=== PATIENT | female | born 1960 | race Caucasian/White ===

== ENCOUNTER 2017-03-04 06:17 | Day surgery (SDC) | payer OTHER ==
[~2017-03-04] VITALS: Ht 160 cm; Wt 87.2 kg
[2017-03-04] VITALS (25 sets, daily range): BP systolic 107–167; BP diastolic 61–92; PULSE 58–74; RESP 14–22; Ht 160 cm; Wt 87.2 kg
[2017-03-04] MEDS ORDERED: NITROGLYCERIN (IC) 100 MCG/ML INJ ONE (07:12)
[2017-03-04] MEDS ORDERED: IODIXANOL LOCM 100 ML BTL ONE (07:12)
[2017-03-04] MEDS ORDERED: VERAPAMIL 5 MG INJ ONE (07:12)
[2017-03-04] MEDS ORDERED: HEPARIN 1000 UNITS/ML 10 ML INJ ONE (07:12)
[2017-03-04] MEDS ORDERED: LIDOCAINE 1% (MDV) 20 ML INJ ONE (07:12)
[2017-03-04] MEDS ORDERED: METO25TA7 PO (08:31)
[2017-03-04 08:33] LABS: ADD SCAN DIFF NO
[2017-03-04 08:36] LABS: BASOPHIL # 0.1 10^3/ul (0.0-0.1); BASOPHILS % 0.8 % (0.0-2.0); EOSINOPHILS # 0.2 10^3/ul (0.0-0.5); HEMATOCRIT 38.8 % (37.0-47.0); HEMOGLOBIN 12.6 g/dl (12.0-16.0); LYMPHOCYTES # 2.3 10^3/ul (0.8-2.9); LYMPHOCYTES % 35.4 % (15.0-51.0); MEAN CORPUSCULAR HEMOGLOBIN 26.5 pg (29.0-33.0); MEAN CORPUSCULAR HGB CONC 32.5 g/dl (32.0-37.0); MEAN CORPUSCULAR VOLUME 81.7 fl (82.0-101.0); MEAN PLATELET VOLUME 9.5 fl (7.4-10.4); MONOCYTE # 0.4 10^3/ul (0.3-0.9); MONOCYTES % 6.7 % (0.0-11.0); NEUTROPHIL # 3.5 10^3/ul (1.6-7.5); NEUTROPHILS % 53.9 % (39.0-77.0); PLATELET COUNT 362 10^3/UL (140-415); RED BLOOD COUNT 4.75 10^6/ul (4.20-5.40); RED CELL DISTRIBUTION WIDTH 14.5 % (11.5-14.5); WHITE BLOOD COUNT 6.6 10^3/ul (4.8-10.8)
--- NOTE | 2017-03-04 08:47 | RADRPT ---
PROCEDURE: XR Chest. CLINICAL INDICATION: Preop, heart catheterization TECHNIQUE: AP view of the chest was obtained. COMPARISON: None. FINDINGS: The cardiomediastinal silhouette is within normal limits. The lungs are clear. No pleural effusion is identified. Osseous structures appear intact. IMPRESSION: No evidence of active cardiopulmonary disease. RPTAT: GG .Jag Blanco MD, MD Date Time Electronically viewed and signed by .Jag Blanco MD, MD on 03/04/2017 08:46 .O/
[2017-03-04 08:49] LABS: PARTIAL THROMBOPLASTIN TIME 27.4 Sec (25.0-35.0); PROTIME 13.2 Sec (12.2-14.2)
[2017-03-04 08:53] LABS: CHOL/HDL RATIO 4.1 RATIO
[2017-03-04] MEDS ORDERED: MIDAZOLAM 1 MG/ML 2 ML INJ ONE (08:58)
[2017-03-04 08:59] LABS: CALCIUM 8.8 mg/dl (8.4-10.2); CREATININE 0.51 mg/dl (0.44-1.00); POTASSIUM 3.6 mmol/L (3.5-5.1)
[2017-03-04] MEDS ORDERED: FENTAnyl 50 MCG/ML VIAL ONE (08:59)
[2017-03-04] MEDS ORDERED: SOD CHLORIDE 0.9% 1,000 ML IV SCH (09:54)
[2017-03-04] MEDS ORDERED: morphine 2 MG INJ IV PRN (10:00)
[2017-03-04] MEDS ORDERED: ONDANSETRON 4 MG INJ IV PRN (10:00)
[2017-03-04] MEDS ORDERED: ACETAMINOPHEN 325 MG TAB PO PRN (10:00)
[2017-03-04] MEDS ORDERED: AL HYDROX/MG HYDROX/SIMETH 30 ML CUP PO PRN (10:00)
--- NOTE | 2017-03-04 10:23 | CARRPT ---
DATE OF PROCEDURE: 03/04/2017 TYPE OF PROCEDURE: 1. Left heart catheterization. 2. Coronary angiography. 3. Measurement of left ventricular end diastolic pressure. ATTENDING PHYSICIAN: Hilaria Aggarwal MD REFERRING PHYSICIAN: Dr. Alona Herrera. INDICATION: Preoperative patient with positive stress test findings for anterior and inferior ische bailey, high risk marker for cardiovascular events. TYPE OF ANESTHESIA: Conscious and local. BRIEF HISTORY AND HOSPITAL COURSE: Ms. Sofia is a 56-year-old female with history of hypertensio n, diabetes mellitus who initially presented complaining of shortness of breath in a preoperative st ate. The patient subsequently underwent a cardiac stress test revealing positive anterior inferior ischemia. Given these findings, the patient referred for and presents today in order to undergo lef t heart catheterization to assess for the possibility of significant obstructive coronary artery dis ease lending to his symptoms of shortness of breath and positive stress test findings in a preoperat grover state. PROCEDURE: After informed consent was obtained, the patient was brought to the [facility] cardiac catheterization lab where her right radial area was prepped and draped in sterile f ashion. 2% Lidocaine was infiltrated into his right radial area in order to adequate local anesthes ia. With modified Seldinger technique, the right artery was cannulated and a 6-Burundian arterial kwan th was placed. A 6-Burundian JL3.5 catheter was used to cannulate the left main coronary ostium with c ontrast injection. Multiple views of the left coronary arterial system were obtained. JL3.5 was re moved over a guidewire and a JR4 was used to cannulate the right coronary arterial ostium. With con trast injection, multiple views of the right coronary arterial system obtained. JR4 was then used t o cross the LV placed in the left ventricle and left ventricular end-diastolic pressure was measure d, pulled back across the aortic valve to assess for significant gradient, which there was not and r emoved. Subsequently, at this time, the patient's catheter was removed and the sheath was removed. TR band was applied. This completed the procedure. There were no noted complications. Additional ly, at the onset of the procedure, the patient received a radial cocktail with 200 mcg of nitroglyce rin, 2.5 mg of verapamil and 5,000 units of heparin. FINDINGS: Coronary angiography: Left main is 4 mm, no significant stenoses. LAD proximally is a 3 .5 mm vessel and has a 20% stenosis in its proximal portion. The remainder of the LAD is free of si gnificant focal stenoses and just around the apex there are proximal and mid to distal branching ej gonals, all sub 2 mm vessels with no significant focal stenosis. The circumflex proximally is a 3 m m vessel and has an ostial 20% stenosis. The remainder of the circumflex thereafter is free of sign ificant focal stenoses. There is a mid branching obtuse marginal 3 mm with no significant focal emily noses. There exists a very early branching diagonal or ramus branch 2 mm with an ostial 30% stenosi s. The right coronary artery proximally is a 3.5 mm vessel and in its midportion has a 20% stenosis . It is a dominant vessel. It gives off a 3 mm PDA with no significant focal stenoses and a 2.5 mm posterolateral branch with a 20% stenosis. Measurement of left ventricular and diastolic pressure 18 to 19. No significant aortic stenosis by gradient. TOTAL FLUOROSCOPY TIME: 5.2 minutes. TOTAL CONTRAST: 71 mL. IMPRESSION: 1. Mild nonobstructive coronary artery disease. 2. Mildly elevated left heart filling pressures. 3. No significant aortic stenosis by gradient. RECOMMENDATIONS: In light of procedure and findings at this time would: 1. Maximize medical management. 2. Aggressive risk factor reduction. 3. The patient is without cardiac contraindication at this time to proceeding to OR for treatment f or surgical intervention. Dictated By: HILARIA DUNHAM/JOSE Conf#: [id number] DID#: [id number] CC: ALONA HERRERA MD;*End*
--- NOTE | 2017-03-06 15:29 | RADRPT ---
Vent Rate: 62 bpm RR Interval: 0 msec IA Interval: 200 msec QRS Duration: 110 msec QT Interval: 494 msec QTC Interval: 501 msec P-R-T Ear[place]art: 59 - -59 - 17 degrees Normal sinus rhythm Incomplete right bundle branch block Left anterior fascicular block Nonspecific T wave abnormality Prolonged QT Abnormal ECG Electronically Signed By: Curly Herrera [id number]
== END 2017-03-04 13:40 | disposition home or self-care (01) ==
LOC: SDS 06:17
PROVIDERS: ATTEND Internal Medicine
DX: I25.10 Atherosclerotic heart disease of native coronary artery without angina pectoris (principal); R94.39 Abnormal result of other cardiovascular function study; E11.9 Type 2 diabetes mellitus without complications; I10 Essential (primary) hypertension; E03.9 Hypothyroidism, unspecified
CPT/HCPCS: 71010; 80048; 80061; 82962; 85025; 85610; 85730; 93005; 93458; C1769; C1887; J1644; J2250; J3010; Q9967; Z7610

== ENCOUNTER 2019-06-15 10:22 | Inpatient (IN) | payer OTHER ==
[~2019-06-15] VITALS: Ht 162.6 cm; Wt 99.7 kg
[~2019-06-15 10:22] MED LIST: METO-335 PO
[2019-06-15] MEDS ORDERED: ASPIRIN 325 MG TAB PO STA (10:29)
[2019-06-15] MEDS ORDERED: SOD CHLORIDE 0.9% 1,000 ML IV STA (10:29)
--- NOTE | 2019-06-15 11:23 | ERD ---
ER Documentation Chief Complaint Chief Complaint BIB RA FOR LEFT SIDED WEAKNESS STARTED THURSDAY HPI This is a 58-year-old female who is here because of left-sided dense weakness and numbness in the left face arm and leg onset 4 days ago. She did not go to the hospital because she thought it was going to go away. The patient is c omplaining of inability to move her left arm and leg very much at all as well as left face and tingling on the left side. His speech change or swallowing changes. No trauma. ROS All systems reviewed and are negative except as per history of present illness. Medications Home Meds Reported Medications Dorzolamide Hcl* (Dorzolamide Hcl*) 10 Ml Drops, 1 DROP BOTH EYES TID, #1 EA 06/15/19 Lisinopril* (Lisinopril*) 10 Mg Tablet, 10 MG PO DAILY, #30 TAB 06/15/19 Metformin Hcl* (Metformin Hcl*) 1,000 Mg Tablet, 1000 MG PO WITH BREAKFAST DINNE, #60 TAB 06/15/19 Levothyroxine Sodium* (Levothyroxine Sodium*) 50 Mcg Tablet, 50 MCG PO BEFORE BREAKFAST, #30 TAB 06/15/19 Hydrocodone/Acetaminophen ([place] 5-325 Tablet) 1 Each Tablet, 1 EACH PO Q8H, TAB 06/15/19 Gabapentin* (Gabapentin*) 100 Mg Capsule, 100 MG PO BID, #90 CAP 06/15/19 Metoprolol Succinate* (Toprol XL*) 25 Mg Tab.sr.24h, 25 MG PO DAILY, #30 TAB 06/15/19 Discontinued Reported Medications Metoprolol Succinate* (Toprol XL*) 25 Mg Tab.sr.24h, 25 MG PO DAILY, #30 TAB 03/04/17 Allergies Allergies: Coded Allergies: No Known Allergies (Verified Allergy, Unknown, 06/15/19) PMhx/Soc History of Surgery: Yes (C-SEC X1) Anesthesia Reaction: No Hx Neurological Disorder: No Hx Respiratory Disorders: No Hx Cardiac Disorders: No Hx Psychiatric Problems: No Hx Miscellaneous Medical Probl: Yes (HTN, ) Hx Alcohol Use: No Hx Substance Use: No Hx Tobacco Use: No Smoking Status: Never smoker FmHx Family History: No coronary disease Physical Exam Vitals Vital Signs Date Temp Pulse Resp B/P (MAP) Pulse Ox O2 O2 Flow FiO2 Time Delivery Rate 06/15/19 71 17 167/86 100 Room Air 11:15 (113) 06/15/19 Nasal 2 10:51 Cannula 06/15/19 73 15 126/103 97 Room Air 10:45 (111) 06/15/19 96.9 95 17 148/80 100 10:29 (102) Physical Exam Const: Well-developed, well-nourished Head: Atraumatic, normocephalic Eyes: Normal Conjunctiva, PERRLA, EOMI, normal sclera, no nystagmus ENT: Normal External Ears, Nose and Mouth, moist mucus membranes. Neck: Full range of motion. No meningismus, no lymphadenopathy. Resp: Clear to auscultation bilaterally, no wheezing, rhonchi, rales Cardio: Regular rate and rhythm, no murmurs, S1 S2 present Abd: Soft, non tender x 4, non distended. Normal bowel sounds, no guar ding or rebound, no pulsitile abdominal masses or bruits Skin: No petechiae or rashes, no ecchymosis , no maculopapular rash Back: No midline or flank tenderness Ext: No cyanosis, or edema, FROM x 4, normal inspection, neurovascularly intact x 4 Neur: [Awake and alert, left upper and lower extremity strength is 12/5, left upper and lower extremity sensation is decreased, there is left facial paralysis and decreased sensation to the cheek on the left Psych: Normal Mood and Affect Result Diagram: 06/15/19 1040 06/15/19 1040 Results 24 hrs Laboratory Tests Test 06/15/19 10:40 White Blood Count 12.3 10^3/ul Red Blood Count 4.76 10^6/ul Hemoglobin 12.4 g/dl Hematocrit 38.8 % Mean Corpuscular Volume 81.5 fl Mean Corpuscular Hemoglobin 26.1 pg Mean Corpuscular Hemoglobin Concent 32.0 g/dl Red Cell Distribution Width 14.5 % Platelet Count 440 10^3/UL Mean Platelet Volume 8.9 fl Immature Granulocytes % 0.400 % Neutrophils % 72.2 % Lymphocytes % 19.8 % Monocytes % 5.9 % Eosinophils % 1.1 % Basophils % 0.6 % Nucleated Red Blood Cells % 0.0 /100WBC Immature Granulocytes # 0.050 10^3/ul Neutrophils # 8.9 10^3/ul Lymphocytes # 2.4 10^3/ul Monocytes # 0.7 10^3/ul Eosinophils # 0.1 10^3/ul Basophils # 0.1 10^3/ul Nucleated Red Blood Cells # 0.0 10^3/ul Prothrombin Time 12.4 Sec Prothrombin Time Ratio 1.0 INR International Normalized Ratio 0.91 Activated Partial Thromboplast Time 24.1 Sec Sodium Level 143 mmol/L Potassium Level 3.4 mmol/L Chloride Level 110 mmol/L Carbon Dioxide Level 21 mmol/L Anion Gap 12 Blood Urea Nitrogen 14 mg/dl Creatinine 0.50 mg/dl Est Glomerular Filtrat Rate mL/min > 60 mL/min Glucose Level 138 mg/dl Hemoglobin A1c 6.5 % Calcium Level 9.6 mg/dl Total Bilirubin 0.5 mg/dl Direct Bilirubin 0.00 mg/dl Indirect Bilirubin 0.5 mg/dl Aspartate Amino Transf (AST/SGOT) 28 IU/L Alanine Aminotransferase (ALT/SGPT) 18 IU/L Alkaline Phosphatase 95 IU/L Troponin I < 0.012 ng/ml Total Protein 8.2 g/dl Albumin 4.1 g/dl Globulin 4.10 g/dl Albumin/Globulin Ratio 1.00 Triglycerides Level 164 mg/dl Cholesterol Level 233 mg/dl LDL Cholesterol, Calculated 157 mg/dl HDL Cholesterol 43 mg/dl Cholesterol/HDL Ratio 5.4 RATIO Current Medications Medications Dose Sig/Kelechi Start Time Status Last (Trade) Ordered Route PRN Stop Time Admin Dose Reason Admin Sodium 1,000 ml @ Q1H STAT 06/15/19 DC 06/15/19 Chloride 1,000 mls/hr IV 10:29 11:01 06/15/19 11:28 Aspirin 325 mg ONCE STAT 06/15/19 DC 06/15/19 (Aspirin) PO 10:29 11:01 06/15/19 10:31 Procedures/MDM EKG: Rate/Rhythm: Normal sinus rhythm, left axis deviation QRS, ST, QT: NORMAL WA, QRS, QT] Impression: Abnormal EKG [address] [place], [place] [address] Radiology Main Line: [phone] DIAGNOSTIC IMAGING REPORT Patient: SELVIN NIEVES : 1960 Age: 58 Sex: F MR #: [id number] DOS: 06/15/19 1029 Ordering MD: FIDEL SHORT DO Location: E/R Room/Bed: PROCEDURE: XR Chest. CLINICAL INDICATION: CVA TECHNIQUE: Single portable view of the chest was obtained COMPARISON: CR CHEST 03/04/2017 FINDINGS: The heart is enlarged. The lungs are clear. There is no pleural effusion or pneumothorax. RPTAT: AA IMPRESSION: Mild Cardiomegaly. .Yadiel Combs MD, MD Date Time Electronically viewed and signed by .aYdiel Combs MD, MD on 06/15/2019 10:54 .S/ CC: FIDEL SHORT DO [id number] [place] [address] Radiology Main Line: [phone] DIAGNOSTIC IMAGING REPORT Patient: SELVIN NIEVES : 1960 Age: 58 Sex: F MR #: [id number] DOS: 06/15/19 1029 Ordering MD: FIDEL SHORT DO Location: E/R Room/Bed: PROCEDURE: CT Brain without contrast. CLINICAL INDICATION: Dense left-sided weakness for 8 hours ago TECHNIQUE: A CT of the brain was performed on a Siemens CT scanner utilizing axial imaging from the skull base through the vertex without IV contrast. Multiplanar reformatted images were made. Images were reviewed on a PACS workstation. The CTDIvol is 39.42 mGy and the DLP is 634.23 mGycm. DICOM images are available. One of the following 3 dose reduction techniques were used during this CT examination: 1) Automated exposure control 2) Adjustment of the mA +/- kV according to patient size or 3) Use of iterative reconstruction technique COMPARISON: None FINDINGS: No evidence for acute hemorrhage or extra-axial fluid collections are present. Wedge-shaped decreased attenuation is noted in the right parietal lobe and occipital lobe compatible with evolving acute to subacute infarct. No midline shift or herniation is present. The ventricles and sulci are normal in size and configuration. Mild vascular calcifications are present of the intracranial internal carotid arteries. Visualized scalp and calvarium are normal. The bilateral paranasal sinuses, mastoid air cells and middle ear cavities are clear. The bilateral orbits demonstrate sequela of prior lens replacement. Incomplete imaging of the C1 vertebral body with appearance of incomplete closure of the right side of the posterior ring versus fracture. Recommend CT cervical spine to clear. IMPRESSION: 1. Evolving acute to subacute non hemorrhagic right parietal occipital lobe infarct 2. No evidence for acute hemorrhage or extraaxial fluid collections, hydrocephalus or herniation 3. Mild atherosclerotic vascular disease 4. Right posterior ring incomplete fusion versus fracture of C1 . Recommend clearance with CT cervical spine Critical finding A call report was made to Fidel Short at 06/15/2019 11:50:55 AM following the completion of the examination by the undersigned. RPTAT: HDC .Mandie Field MD, MD Date Time Electronically viewed and signed by .Mandie Field MD, MD on 06/15/2019 11:54 .C/ CC: FIDEL SHORT DO [id number] Patient denies any trauma, I will order a CT scan of the C-spine to ensure this is either an acute fracture or an artifact versus a past healed injury Patient's neurologic symptoms are concerning for acute TIA/stroke, infectious, or metabolic cause and will require inpatient workup and continuous monitoring. Further w/u for will be deferred to the inpatient team. Departure Diagnosis: Primary Impression: CVA (cerebral vascular accident) CVA mechanism: unspecified Qualified Codes: I63.9 - Cerebral infarction, unspecified Condition: Stable FIDEL SHORT DO Jun 15, 2019 11:23
[2019-06-15] MEDS ORDERED: GABA100C14 PO (11:42)
[2019-06-15] MEDS ORDERED: METO-335 PO (11:42)
[2019-06-15] MEDS ORDERED: HYDR-4011 PO (11:43)
[2019-06-15] MEDS ORDERED: LEVO50TA7 PO (11:43)
[2019-06-15] MEDS ORDERED: METF100010 PO (11:44)
[2019-06-15] MEDS ORDERED: LISI10TA2 PO (11:44)
[2019-06-15] MEDS ORDERED: DORZ10DR5 BOTH EYES (11:46)
[2019-06-15] MEDS ORDERED: SOD CHLORIDE 0.9% 1,000 ML IV SCH (12:18)
[2019-06-15] MEDS ORDERED: ONDANSETRON 4 MG INJ IV PRN (12:30)
[2019-06-15] MEDS ORDERED: ACETAMINOPHEN 325 MG TAB PO PRN (12:30)
[2019-06-15 15:50] VITALS: BP 149/79; PULSE 73; RESP 17
--- NOTE | 2019-06-15 16:29 | HP ---
Date/Time of Note Date/Time of Note DATE: 06/15/19 TIME: 16:07 Assessment/Plan VTE Prophylaxis SCD applied (from Nsg): Yes Pharmacological prophylaxis: LMWH Lines/Catheters IV Catheter Type (from Nrsg): Saline Lock Assessment/Plan Assessment/Plan -CVA (cerebral vascular accident). Start aspirin. Will obtain swallow evaluation, PT OT. Obtain lipid panel. Dr. Bailey is asked to see patient in neurology consultation. -Chest pain, will obtain cardiac enzymes every 8 hours x3. [address]D echo. Dr. Aggarwal is asked to see patient in cardiology consultation. -Cardiomyopathy -Diabetes mellitus type 2, continue metformin and NovoLog per mild algorithm sliding scale, will obtain hemoglobin A1c. -Hypertension, continue metoprolol. -Hypothyroidism, will obtain TSH, continue levothyroxine. Further recommendations based on clinical course. Plan of care discussed with Dr. Stevenson. Result Diagram: 06/15/19 1040 06/15/19 1040 Results 24hrs Laboratory Tests Test 06/15/19 10:40 White Blood Count 12.3 #H Red Blood Count 4.76 Hemoglobin 12.4 Hematocrit 38.8 Mean Corpuscular Volume 81.5 L Mean Corpuscular Hemoglobin 26.1 L Mean Corpuscular Hemoglobin Concent 32.0 Red Cell Distribution Width 14.5 Platelet Count 440 #H Mean Platelet Volume 8.9 Immature Granulocytes % 0.400 Neutrophils % 72.2 Lymphocytes % 19.8 Monocytes % 5.9 Eosinophils % 1.1 Basophils % 0.6 Nucleated Red Blood Cells % 0.0 Immature Granulocytes # 0.050 H Neutrophils # 8.9 H Lymphocytes # 2.4 Monocytes # 0.7 Eosinophils # 0.1 Basophils # 0.1 Nucleated Red Blood Cells # 0.0 Prothrombin Time 12.4 Prothrombin Time Ratio 1.0 INR International Normalized Ratio 0.91 Activated Partial Thromboplast Time 24.1 Sodium Level 143 Potassium Level 3.4 L Chloride Level 110 Carbon Dioxide Level 21 Anion Gap 12 Blood Urea Nitrogen 14 Creatinine 0.50 Est Glomerular Filtrat Rate mL/min > 60 Glucose Level 138 Hemoglobin A1c 6.5 H Calcium Level 9.6 Total Bilirubin 0.5 Direct Bilirubin 0.00 Indirect Bilirubin 0.5 Aspartate Amino Transf (AST/SGOT) 28 Alanine Aminotransferase (ALT/SGPT) 18 Alkaline Phosphatase 95 Troponin I < 0.012 Total Protein 8.2 H Albumin 4.1 Globulin 4.10 H Albumin/Globulin Ratio 1.00 Triglycerides Level 164 H Cholesterol Level 233 H LDL Cholesterol, Calculated 157 HDL Cholesterol 43 Cholesterol/HDL Ratio 5.4 HPI/ROS Admit Date/Time Admit Date/Time Jun 15, 2019 at 12:19 Hx of Present Illness The patient is a 58-year-old female with history of hypertension, diabetes with diabetic neuropathy, hypothyroidism, nonobstructive coronary artery disease per left cardiac catheterization by Dr. Aggarwal in February 2017. Patient presented to the emergency room due to left-sided dense weakness and numbness in the face and upper and lower extremity onset 4 days ago on Thursday. Patient did not seek any care because she thought it will go away. Patient is unable to move her left upper and lower extremity. Patient denies any fever denies any shortness of breath denies nausea vomiting diarrhea constipation, denies any swallowing problems or speech problems. Patient denies any trauma. Patient complains of left-sided chest pain. CT of her brain revealed evolving acute to subacute nonhemorrhagic right parietal occipital lobe infarct. Unfortunately patient is outside of the window for any thrombolytics. Patient is admitted for further evaluation and management to telemetry floor. ROS 12 point review of system is negative except for what mentioned in HPI PMH/Family/Social Past Medical History Medical History: diabetes, hypertension, hypothyroid Medications Current Medications Sodium Chloride 1,000 ml @ 80 mls/hr [id number] IV ; Start 06/15/19 at 12:18; Stop 06/16/19 at 00:47 Ondansetron HCl (Zofran Inj) 4 mg ER BRIDGE PRN IV NAUSEA/VOMITING; Start 06/15/19 at 12:30; Stop 06/16/19 at 12:29 Acetaminophen (Tylenol Tab) 650 mg ER BRIDGE PRN PO .MILD PAIN 1-3 OR TEMP; Start 06/15/19 at 12:30; Stop 06/16/19 at 12:29 Coded Allergies: No Known Allergies (Verified Allergy, Unknown, 06/15/19) Past Surgical History Past Surgical Hx: other (Status post , status post cataract surgery) Family History Significant Family History: diabetes Social History Alcohol Use: none Smoking Status: Never smoker Drug Use: none Exam/Review of Systems Vital Signs Vitals Vital Signs Date Temp Pulse Resp B/P (MAP) Pulse Ox O2 O2 Flow FiO2 Time Delivery Rate 06/15/19 98.9 73 17 149/79 98 15:50 (102) 06/15/19 Room Air 13:40 06/15/19 2 10:51 Exam Constitutional: alert, oriented Head: normocephalic Neck: supple Respiratory: clear to auscultation Cardiovascular: regular rate and rhythm Gastrointestinal: soft, non-tender Musculoskeletal: nl extremities to inspection Extremities: normal pulses Neurological: other (Left-sided weakness) LIBIA JACOBSON Jun 15, 2019 16:18
[2019-06-15] MEDS ORDERED: GLUCAGON 1 MG INJ IM PRN (16:30)
[2019-06-15] MEDS ORDERED: DEXTROSE 50% 50 ML SYRINGE IV PRN ×2 (16:30)
[2019-06-15] MEDS ORDERED: GLUCOSE GEL 15 GRAM TUBE BUCCAL PRN (16:30)
[2019-06-15] MEDS ORDERED: GLUCOSE GEL 15 GRAM TUBE PO PRN ×2 (16:30)
[2019-06-15] MEDS: metFORMIN 500 MG TAB PO SCH (17:12)
[2019-06-15 17:19] VITALS: Ht 162.6 cm; Wt 99.7 kg
[2019-06-15 20:00] VITALS: BP 158/82; PULSE 76; RESP 18
[2019-06-15] MEDS ORDERED: ATORVASTATIN 20 MG TAB PO SCH (21:00)
[2019-06-15] MEDS: INSULIN ASPART [NOVOLOG] 3 ML PEN SC SCH (22:00)
[2019-06-15] MEDS: DORZOLAMIDE 2% 10 ML OPH BOTH EYES SCH (22:03)
[2019-06-16] VITALS (7 sets, daily range): BP systolic 133–176; BP diastolic 71–98; PULSE 69–79; RESP 18–22
--- NOTE | 2019-06-16 00:01 | CONS ---
DATE OF ADMISSION: 06/15/2019 DATE OF CONSULTATION: 06/15/2019 REASON FOR CONSULTATION: Hypertension, chest pain. REQUESTING PHYSICIAN: Shady Stevenson MD. HISTORY OF PRESENT ILLNESS: Mr. Sofia is a 58-year-old female with history of hypertension, dyslipidemia, diabetes mellitus, coronary artery disease, nonobstructive by catheterization February 2017, who presents with now per patient 5 days of left-sided weakness and upper extremity and lower extremity, facial numbness and cramping of the left side. Upon arrival, temperature 96.9, blood pressure 140/80, pulse 95, respiratory rate 17, satting 100%. The patient's labs revealed white count of 12.3, hemoglobin 12.4, platelet count of 440. Sodium 143, potassium 3.4, creatinine 0.5, BUN 14. Troponin negative. LDL 157, HDL 43, triglycerides 164. INR 0.91. The patient underwent a chest x-ray revealing mild cardiomegaly but clear lungs, a head CT that revealed evolving acute subacute nonhemorrhagic right parietal occipital lobe infarct. No evidence of acute hemorrhage and a cervical spine CT that then revealed multilevel spinal canal stenosis most pronounced at C5-C6 with a circumferential disk osteophyte complex mildly indenting the spinal cord with moderate spinal canal stenosis. The patient's electrocardiogram with normal sinus rhythm at 71, with left axis deviation. The patient subsequently has been admitted to the floor and since admit to floor has been given an aspirin. PAST MEDICAL HISTORY: As above in HPI. MEDICATIONS CURRENTLY IN HOSPITAL: 1. Lisinopril 10 mg daily. 2. Toprol 25 mg daily. 3. Aspirin 81 daily. 4. Synthroid 50 mcg daily. 5. Trusopt eye drops. 6. Metformin. 7. Glucagon. ALLERGIES: NO KNOWN DRUG ALLERGIES. SOCIAL HISTORY: No current tobacco, ETOH or illicit drug use. FAMILY HISTORY: No sudden cardiac or early CAD. REVIEW OF SYSTEMS: As above in HPI. CONSTITUTIONAL: No fevers, chills. PULMONARY: No current shortness of breath. CARDIOVASCULAR: The patient with vague complaints of chest pain described as a cramping sensation. GASTROINTESTINAL: No vomiting. GENITOURINARY: No hematuria. MUSCULOSKELETAL: Left upper and lower extremity weakness. NEUROLOGIC: Left upper extremity weakness. PHYSICAL EXAMINATION: VITAL SIGNS: Temperature of 98.9, blood pressure most recently 149/79, pulse 73, respiratory rate 17, satting 98%. GENERAL: The patient is alert, awake, no acute distress. NECK: JVP approximately 8 cm water. CHEST: Fair air movement throughout. HEART: Regular rate and rhythm. Normal S1, S2, I/ systolic murmur. Nondisplaced PMI. ABDOMEN: Positive bowel sounds, soft. EXTREMITIES: No significant pitting edema, 1+ pulses bilateral posterior tibial. LABORATORY DATA: As above in HPI. No further labs for my review at this time. IMAGING STUDIES: As above in HPI. No further imaging for my review at this time. ELECTROCARDIOGRAM: As above in HPI. No further electrocardiograms for my review at this time. IMPRESSION: 1. Chest pain, assess for acute coronary syndrome, somewhat vague description described as a cramping sensation with a cath no significant obstructive disease in 2017. 2. Hypertension, mildly elevated. 3. Dyslipidemia. 4. CVA, acute with ongoing left upper extremity and lower extremity weakness. 5. Hypothyroidism. 6. Diabetes mellitus. RECOMMENDATIONS: 1. At this time, we would maintain the patient on telemetry monitoring. 2. Follow rhythm and rate control closely. 2. We would complete the patient's rule out for myocardial infarction to ensure the patient's chest pain was not due to acute coronary syndrome and give patient sublingual nitroglycerin for any recurrent episodes of chest pain. 4. Continue the patient's aspirin at this time. 5. Would consider holding the patient's antihypertensives as it may be necessary to have the patient have permissive hypertension and therefore will at least discontinue the patient's lisinopril at this time. 6. TSH to assess his current thyroid state. 7. Check a fasting lipid panel for general risk stratification and likely initiate statin therapy as necessary. 8. Pending neurologic consultation. Thank you for allowing me to take part in the care of this patient. I will continue to follow along very closely with you. Further recommendations to be made as the patiient progresses through her inpatient hospital clinical course. Dictated By: HILARIA DUNHAM/JOSE Conf#: [id number] DID#: [id number] CC: SHADY STEVENSON MD;*EndCC* MTDD
[2019-06-16] MEDS: ACCU-CHEK XX SCH (02:00)
[2019-06-16] MEDS: LEVOTHYROXINE 50 MCG TAB PO SCH (06:00)
[2019-06-16] MEDS: metFORMIN 500 MG TAB PO SCH ×2 (08:00→17:31)
[2019-06-16] MEDS: INSULIN ASPART [NOVOLOG] 3 ML PEN SC SCH ×4 (08:00→20:21)
[2019-06-16] MEDS ORDERED: LISINOPRIL 10 MG TAB PO SCH (09:00)
[2019-06-16] MEDS: METOPROLOL (XL) 25 MG TAB PO SCH (09:00)
[2019-06-16] MEDS: ASPIRIN (EC) 81 MG TAB PO SCH (09:00)
[2019-06-16] MEDS: DORZOLAMIDE 2% 10 ML OPH BOTH EYES SCH ×3 (09:55→20:16)
--- NOTE | 2019-06-16 09:55 | CONSI ---
Assessment/Plan Assessment/Plan Assessment/Plan (Recall) 58 F c/ multiple cerebrovascular risk factors, who presents for evaluation of left hemiparesis x [address] confirmed a recent/evolving R parietal infarction... LDL 158 A1C 6.5 P: MRI brain for further characterization MRA head and neck Await Echo Agree w/ asa/lipitor daily for now Add ESR, RPR PT/OT/ST BP control and other medical management per primary Will follow Consultation Date/Type/Reason Admit Date/Time Jun 15, 2019 at 12:19 Type of Consult Neurology Reason for Consultation stroke Requesting Provider: LIBIA JACOBSON Date/Time of Note DATE: 06/16/19 TIME: 09:50 Hx of Present Illness The patient is a 58-year-old female with history of hypertension, diabetes with diabetic neuropathy, hypothyroidism, nonobstructive coronary artery disease per left cardiac catheterization by Dr. Aggarwal in February 2017. Patient presented to the emergency room due to left-sided dense weakness and numbness in the face and upper and lower extremity onset 4 days ago on Thursday. Patient did not seek any care because she thought it will go away. Patient is unable to move her left upper and lower extremity. Patient denies any fever de nies any shortness of breath denies nausea vomiting diarrhea constipation, denies any swallowing problems or speech problems. Patient denies any trauma. Patient complains of left-sided chest pain. CT of her brain revealed evolving acute to subacute nonhemorrhagic right parietal occipital lobe infarct. Unfortunately patient is outside of the window for any thrombolytics. Patient is admitted for further evaluation and management to telemetry floor. per HPI Objective Exam Vitals Vital Signs Date Temp Pulse Resp B/P (MAP) Pulse Ox O2 O2 Flow FiO2 Time Delivery Rate 06/16/19 97.0 69 22 152/81 96 Room Air 07:44 (104) 06/15/19 2 10:51 Intake and Output 06/15/19 06/15/19 06/16/19 1515:00 23:00 07:00 IntakeIntake Total 0 ml OutputOutput Total 1 ml BalanceBalance -1 ml 0 ml Exam PE: Gen Appearance: No Apparent Distress HEENT: Normocephalic Cardiovascular: Regular rate Lungs: Clear bilaterally Abdomen: Soft Extremities: Dry NE: The patient was alert and oriented. Language was normal. Fund of knowledge was normal. Pupils were equal and reactive to light. There was no afferent pupillary defect. Visual cid were normal. Funduscopic examination was limited. Extra-ocular movements were full. Ptosis was absent. There was no nystagmus. Facial sensation was normal. Face was symmetric with normal strength. Hearing was intact. Palate movements were normal. Neck strength was normal. There was normal tongue bulk and speed of movement. Tone was normal. Muscle bulk was normal. I did not see fasciculations. Arm and leg were weak on the left....though she was able to wiggle the left toes and move her left arm with gravity.. Vibration sensation was reduced distally. Temperature and pinprick sensation was normal. Rapid alternating movements were normal. There was no dysmetria. There was no intention tremor. Gait was deferred due to bedrest. Arm and leg reflexes were symmetric. Odonnell's sign was absent. Plantar responses were flexor. Results Result Diagram: 06/15/19 1040 06/15/19 1040 Results 24hrs Laboratory Tests Test 06/15/19 10:40 06/15/19 18:05 06/15/19 22:00 06/16/19 00:27 White Blood Count 12.3 #H Red Blood Count 4.76 Hemoglobin 12.4 Hematocrit 38.8 Mean Corpuscular 81.5 L Volume Mean Corpuscular 26.1 L Hemoglobin Mean Corpuscular 32.0 Hemoglobin Concent Red Cell 14.5 Distribution Width Platelet Count 440 #H Mean Platelet Volume 8.9 Immature 0.400 Granulocytes % Neutrophils % 72.2 Lymphocytes % 19.8 Monocytes % 5.9 Eosinophils % 1.1 Basophils % 0.6 Nucleated Red Blood 0.0 Cells % Immature 0.050 H Granulocytes # Neutrophils # 8.9 H Lymphocytes # 2.4 Monocytes # 0.7 Eosinophils # 0.1 Basophils # 0.1 Nucleated Red Blood 0.0 Cells # Prothrombin Time 12.4 Prothrombin Time 1.0 Ratio INR International 0.91 Normalized Ratio Activated 24.1 Partial Thromboplast Time Sodium Level 143 Potassium Level 3.4 L Chloride Level 110 Carbon Dioxide Level 21 Anion Gap 12 Blood Urea Nitrogen 14 Creatinine 0.50 Est Glomerular > 60 Filtrat Rate mL/min Glucose Level 138 Hemoglobin A1c 6.5 H Calcium Level 9.6 Total Bilirubin 0.5 Direct Bilirubin 0.00 Indirect Bilirubin 0.5 Aspartate Amino 28 Transf (AST/SGOT) Alanine 18 Aminotransferase (AL T/SGPT) Alkaline Phosphatase 95 Troponin I < 0.012 < 0.012 < 0.012 Total Protein 8.2 H Albumin 4.1 Globulin 4.10 H Albumin/Globulin 1.00 Ratio Triglycerides Level 164 H Cholesterol Level 233 H LDL Cholesterol, 157 Calculated HDL Cholesterol 43 Cholesterol/HDL 5.4 Ratio Creatine Kinase 141 148 Creatine Kinase 0.7 0.6 Index Creatinine Kinase MB 1.03 0.95 (Mass) Bedside Glucose 114 Test 06/16/19 05:13 06/16/19 08:15 Triglycerides Level 166 H Cholesterol Level 228 H LDL Cholesterol, 158 Calculated HDL Cholesterol 37 Cholesterol/HDL 6.1 Ratio Bedside Glucose 105 Past Medical History Medical History: diabetes, hypertension, hypothyroid Home Meds Reported Medications Dorzolamide Hcl* (Dorzolamide Hcl*) 10 Ml Drops, 1 DROP BOTH EYES TID, #1 EA 06/15/19 Lisinopril* (Lisinopril*) 10 Mg Tablet, 10 MG PO DAILY, #30 TAB 06/15/19 Metformin Hcl* (Metformin Hcl*) 1,000 Mg Tablet, 1000 MG PO WITH BREAKFAST DINNE, #60 TAB 06/15/19 Levothyroxine Sodium* (Levothyroxine Sodium*) 50 Mcg Tablet, 50 MCG PO BEFORE BREAKFAST, #30 TAB 06/15/19 Hydrocodone/Acetaminophen (Christine 5-325 Tablet) 1 Each Tablet, 1 EACH PO Q8H, TAB 06/15/19 Gabapentin* (Gabapentin*) 100 Mg Capsule, 100 MG PO BID, #90 CAP 06/15/19 Metoprolol Succinate* (Toprol XL*) 25 Mg Tab.sr.24h, 25 MG PO DAILY, #30 TAB 06/15/19 Discontinued Reported Medications Metoprolol Succinate* (Toprol XL*) 25 Mg Tab.sr.24h, 25 MG PO DAILY, #30 TAB 03/04/17 Medications Current Medications Dorzolamide HCl (Trusopt) 1 drop TID BOTH EYES Last administered on 06/15/19at 22:03; Admin Dose 1 DROP; Start 06/15/19 at 21:00 Levothyroxine Sodium (Synthroid) 50 mcg DAILY@06 PO ; Start 06/16/19 at 06:00 Metformin HCl (Glucophage) 1,000 mg WITH BREAKFAST DINNE PO ; Start 06/15/19 at 18:00 Metoprolol Succinate (Toprol Xl) 25 mg DAILY PO ; Start 06/16/19 at 09:00 Miscellaneous Information 1 ea NOTE XX ; Start 06/15/19 at 16:30 Glucose (Glutose) 15 gm Q15M PRN PO DECREASED GLUCOSE; Start 06/15/19 at 16:30 Glucose (Glutose) 22.5 gm Q15M PRN PO DECREASED GLUCOSE; Start 06/15/19 at 16:3 0 Dextrose (D50w Syringe) 25 ml Q15M PRN IV DECREASED GLUCOSE; Start 06/15/19 at 16:30 Dextrose (D50w Syringe) 50 ml Q15M PRN IV DECREASED GLUCOSE; Start 06/15/19 at 16:30 Glucagon (Glucagen) 1 mg Q15M PRN IM DECREASED GLUCOSE; Start 06/15/19 at 16:30 Glucose (Glutose) 15 gm Q15M PRN BUCCAL DECREASED GLUCOSE; Start 06/15/19 at 16:30 Aspirin (Halfprin) 81 mg DAILY PO ; Start 06/16/19 at 09:00 Atorvastatin Calcium (Lipitor) 20 mg HS PO ; Start 06/15/19 at 21:00 Diagnostic Test (Pha) (Accu-Chek) 1 ea 02 XX ; Start 06/16/19 at 02:00 Insulin Aspart (Novolog Insulin Pen) NOVOLOG *MILD* ALGORITHM WITH MEALS BEDTIME SC ; Start 06/15/19 at 21:00 Allergies: Coded Allergies: No Known Allergies (Verified Allergy, Unknown, 06/15/19) Past Surgical History Past Surgical Hx: other (Status post , status post cataract surgery) Social History Alcohol Use: none Smoking Status: Never smoker Drug Use: none ALYCIA YUNG Jun 16, 2019 09:55
[2019-06-16] MEDS ORDERED: hydrALAzine 20 MG INJ IV PRN (12:30)
--- NOTE | 2019-06-16 12:31 | CONS ---
Assessment/Plan Assessment/Plan Hospital Course (Demo Recall) IMPRESSION: 1. Chest pain, assess for acute coronary syndrome, somewhat vague description described as a cramping sensation with a cath no significant obstructive disease in 2017.-neg trop x 3 2. Hypertension, mildly elevated. 3. Dyslipidemia. 4. CVA, acute with ongoing left upper extremity and lower extremity weakness.- seen by HEad CT as well 5. Hypothyroidism. 6. Diabetes mellitus. Recc: -Tele -currently NPO -will f/u echo -Continue asa/statin as tolerated as able -ongoing neuro eval Consultation Date/Type/Reason Admit Date/Time Jun 15, 2019 at 12:19 Initial Consult Date 06/15/19 Type of Consult Cardiology Reason for Consultation HTN Requesting Provider: LIBIA JACOBSON Date/Time of Note DATE: 06/16/19 TIME: 12:27 Exam/Review of Systems Vital Signs Vitals Vital Signs Date Temp Pulse Resp B/P (MAP) Pulse Ox O2 O2 Flow FiO2 Time Delivery Rate 06/16/19 98.6 77 22 176/98 96 Room Air 11:54 (124) 06/15/19 2 10:51 Intake and Output 06/15/19 06/15/19 06/16/19 1515:00 23:00 07:00 IntakeIntake Total 0 ml OutputOutput Total 1 ml BalanceBalance -1 ml 0 ml Exam Exam Review of Systems: CONSTITUTIONAL: No fevers, chills. PULMONARY: No sob CARDIOVASCULAR: No chest pain/palpitations GASTROINTESTINAL: No nausea/vomiting. GENITOURINARY: No hematuria/dysuria. MUSCULOSKELETAL: No myagias/arthalgias. PSYCHIATRIC: The patient denies depression. NEUROLOGIC: Focal L sided weakness Constitutional: alert Psych: no complaints Head: normocephalic ENMT: mucosa pink and moist Neck: supple, jvd (9 cm water) Cardiovascular: regular rate and rhythm Gastrointestinal: soft, non-tender Musculoskeletal: muscle weakness (L sided but improving) Extremities: edema (none) Neurological: focal weakness (L side UE/LE) Labs Result Diagram: 06/15/19 1040 06/15/19 1040 Results 24hrs Laboratory Tests Test 06/15/19 18:05 06/15/19 22:00 06/16/19 00:27 06/16/19 05:11 Creatine Kinase 141 148 Creatine Kinase 0.7 0.6 Index Creatinine Kinase MB 1.03 0.95 (Mass) Troponin I < 0.012 < 0.012 Bedside Glucose 114 Erythrocyte 40.0 H Sedimentation Rate Test 06/16/19 05:13 06/16/19 08:15 06/16/19 11:29 Triglycerides Level 166 H Cholesterol Level 228 H LDL Cholesterol, 158 Calculated HDL Cholesterol 37 Cholesterol/HDL 6.1 Ratio Bedside Glucose 105 97 Medications Medications Current Medications Dorzolamide HCl (Trusopt) 1 drop TID BOTH EYES Last administered on 06/16/19at 09:55; Admin Dose 1 DROP; Start 06/15/19 at 21:00 Levothyroxine Sodium (Synthroid) 50 mcg DAILY@06 PO ; Start 06/16/19 at 06:00 Metformin HCl (Glucophage) 1,000 mg WITH BREAKFAST DINNE PO ; Start 06/15/19 at 18:00 Metoprolol Succinate (Toprol Xl) 25 mg DAILY PO ; Start 06/16/19 at 09:00 Miscellaneous Information 1 ea NOTE XX ; Start 06/15/19 at 16:30 Glucose (Glutose) 15 gm Q15M PRN PO DECREASED GLUCOSE; Start 06/15/19 at 16:30 Glucose (Glutose) 22.5 gm Q15M PRN PO DECREASED GLUCOSE; Start 06/15/19 at 16:30 Dextrose (D50w Syringe) 25 ml Q15M PRN IV DECREASED GLUCOSE; Start 06/15/19 at 16:30 Dextrose (D50w Syringe) 50 ml Q15M PRN IV DECREASED GLUCOSE; Start 06/15/19 at 16:30 Glucagon (Glucagen) 1 mg Q15M PRN IM DECREASED GLUCOSE; Start 06/15/19 at 16:30 Glucose (Glutose) 15 gm Q15M PRN BUCCAL DECREASED GLUCOSE; Start 06/15/19 at 16:30 Aspirin (Halfprin) 81 mg DAILY PO ; Start 06/16/19 at 09:00 Diagnostic Test (Pha) (Accu-Chek) 1 ea 02 XX ; Start 06/16/19 at 02:00 Insulin Aspart (Novolog Insulin Pen) NOVOLOG *MILD* ALGORITHM WITH MEALS BEDTIME SC ; Start 06/15/19 at 21:00 Atorvastatin Calcium (Lipitor) 80 mg HS PO ; Start 06/16/19 at 21:00 HILARIA WINSTON 18, 2019 12:30
--- NOTE | 2019-06-16 18:43 | PN ---
Date/Time of Note Date/Time of Note DATE: 06/16/19 TIME: 18:36 Assessment/Plan VTE Prophylaxis Risk score (from Ns)>0 risk: 7 SCD applied (from Nsg): Yes Pharmacological prophylaxis: LMWH Lines/Catheters IV Catheter Type (from Nrs): Saline Lock Urinary Cath still in place: No Assessment/Plan Hospital Course Patient's past swallow evaluation started on pured diet, continues to have left-sided weakness, undergoing evaluation by neurologist status post MRI and MRA of head and neck. Patient might be a candidate for acute rehab down the line. Patient's condition and plan of care discussed with patient and family at the bedside, all questions answered. Assessment/Plan -CVA (cerebral vascular accident). Continue aspirin and Lipitor. Continue PT OT. Dr. Bailey is following in neurology consultation. -Chest pain, cardiac enzymes are negative x3. Follow-up on 2D echo. Dr. Aggarwal is following in cardiology consultation. -Cardiomyopathy -Diabetes mellitus type 2 with hemoglobin A1c of 6.5, continue metformin and NovoLog per mild algorithm sliding scale. -Hypertension, continue metoprolol. -Hypothyroidism, continue levothyroxine. -Hyperlipidemia, continue Lipitor. Further recommendations based on clinical course. Plan of care discussed with Dr. Stevenson. Result Diagram: 06/15/19 1040 06/15/19 1040 Results 24hrs Laboratory Tests Test 06/15/19 22:00 06/16/19 00:27 06/16/19 05:11 06/16/19 05:13 Bedside Glucose 114 Creatine Kinase 148 Creatine Kinase 0.6 Index Creatinine Kinase MB 0.95 (Mass) Troponin I < 0.012 Erythrocyte 40.0 H Sedimentation Rate Triglycerides Level 166 H Cholesterol Level 228 H LDL Cholesterol, 158 Calculated HDL Cholesterol 37 Cholesterol/HDL 6.1 Ratio Test 06/16/19 08:15 06/16/19 11:29 06/16/19 17:29 Bedside Glucose 105 97 105 Exam/Review of Systems Exam Vitals Vital Signs Date Temp Pulse Resp B/P (MAP) Pulse Ox O2 O2 Flow FiO2 Time Delivery Rate 06/16/19 98.0 78 22 133/71 96 Room Air 15:50 (91) 06/15/19 2 10:51 Intake and Output 06/15/19 06/15/19 06/16/19 1515:00 23:00 07:00 IntakeIntake Total 0 ml OutputOutput Total 1 ml BalanceBalance -1 ml 0 ml Results Results 24hrs Laboratory Tests Test 06/15/19 22:00 06/16/19 00:27 06/16/19 05:11 06/16/19 05:13 Bedside Glucose 114 Creatine Kinase 148 Creatine Kinase 0.6 Index Creatinine Kinase MB 0.95 (Mass) Troponin I < 0.012 Erythrocyte 40.0 H Sedimentation Rate Triglycerides Level 166 H Cholesterol Level 228 H LDL Cholesterol, 158 Calculated HDL Cholesterol 37 Cholesterol/HDL 6.1 Ratio Test 06/16/19 08:15 06/16/19 11:29 06/16/19 17:29 Bedside Glucose 105 97 105 Medications Medication Current Medications Dorzolamide HCl (Trusopt) 1 drop TID BOTH EYES Last administered on 06/16/19at 14:23; Admin Dose 1 DROP; Start 06/15/19 at 21:00 Levothyroxine Sodium (Synthroid) 50 mcg DAILY@06 PO ; Start 06/16/19 at 06:00 Metformin HCl (Glucophage) 1,000 mg WITH BREAKFAST DINNE PO Last administered on 06/16/19at 17:31; Admin Dose 1,000 MG; Start 06/15/19 at 18:00 Metoprolol Succinate (Toprol Xl) 25 mg DAILY PO ; Start 06/16/19 at 09:00 Miscellaneous Information 1 ea NOTE XX ; Start 06/15/19 at 16:30 Glucose (Glutose) 15 gm Q15M PRN PO DECREASED GLUCOSE; Start 06/15/19 at 16:30 Glucose (Glutose) 22.5 gm Q15M PRN PO DECREASED GLUCOSE; Start 06/15/19 at 16:30 Dextrose (D50w Syringe) 25 ml Q15M PRN IV DECREASED GLUCOSE; Start 06/15/19 at 16:30 Dextrose (D50w Syringe) 50 ml Q15M PRN IV DECREASED GLUCOSE; Start 06/15/19 at 16:30 Glucagon (Glucagen) 1 mg Q15M PRN IM DECREASED GLUCOSE; Start 06/15/19 at 16:30 Glucose (Glutose) 15 gm Q15M PRN BUCCAL DECREASED GLUCOSE; Start 06/15/19 at 16:30 Aspirin (Halfprin) 81 mg DAILY PO ; Start 06/16/19 at 09:00 Diagnostic Test (Pha) (Accu-Chek) 1 02 XX ; Start 06/16/19 at 02:00 Insulin Aspart (Novolog Insulin Pen) NOVOLOG *MILD* ALGORITHM WITH MEALS BEDTIME SC ; Start 06/15/19 at 21:00 Atorvastatin Calcium (Lipitor) 80 mg HS PO ; Start 06/16/19 at 21:00 Hydralazine HCl (Apresoline) 10 mg Q4H PRN IV SBP >170; Start 06/16/19 at 12:30 LIBIA JACOBSON Jun 16, 2019 18:43
--- NOTE | 2019-06-16 19:16 | RADRPT ---
Echocardiogram Report Patient Name: SELVIN NIEVESPatient ID: [id number] : 1960 (58y 11m)Study Date: 06/16/2019 10:44:18 AM Gender: FAccession #: [id number] Tech: Cb Esparza [facility] Location: [facility] Ref.Physician: LIBIA JACOBSON Height(Cm): BSA: Weight(Kg): Quality: AdequateOrder Physician: LIBIA JACOBSON Account #: Procedures: Echocardiographic Report: Transthoracic echocardiogram with complete 2D, M-Mode, and doppler examination. Indications: Chest Pain. Measurements: 2D/M Mode Doppler Measurement Value Normal Range Measurement Value Normal Range LVIDd 2D 4.5 [ 3.8 - 5.2 ] cm AV Peak Carlos 1.6 [ 100.0 - 170.0 ] cm/sec LVIDs 2D 2.7 [ 2.2 - 3.5 ] cm AV Peak PG 11.0 [ 2.0 - 9.0 ] mmHg LVPWd 2D 1.3 [ 0.6 - 0.9 ] cm LVOT Peak Carlos 1.2 [ 70.0 - 110.0 ] cm/sec IVSd 2D 1.7 [ 0.6 - 0.9 ] cm LVOT Peak PG 5.0 [ 2.0 - 6.0 ] mmHg AoR Diam 2D 2.7 [ 2.3 - 3.1 ] cm MV E Peak Carlos 1.0 [ 60.0 - 130.0 ] cm/sec EDV 2D 91.0 [ 46.0 - 106.0 ] ml MV A Peak Carlos 1.1 [ 100.0 - 120.0 ] cm/sec ESV 2D 26.3 [ 14.0 - 42.0 ] ml MV E/A 0.8 [ 0.8 - 1.5 ] ratio EF 2D 71.1 [ 54.0 - 74.0 ] percent MV Decel Time 229 [ 104 - 258 ] msec LA Dimen 2D 3.6 [ 2.7 - 3.8 ] cm Lat E` Carlos 0.1 [ 10.0 - 15.0 ] cm/sec Lateral E/E` 14.1 [ 1.0 - 2.0 ] ratio Med E` Carlos 0.1 cm/sec MV E/A 0.8 [ 0.8 - 1.5 ] ratio TR Peak Carlos 2.2 [ 100.0 - 280.0 ] cm/sec TR Peak PG 19.0 mmHg RVSP 22.0 [ 10.0 - 36.0 ] mmHg Findings: Left Ventricle: Normal left ventricular systolic function. Normal left ventricular cavity size. Severe asymmetric septal hypertrophy. Ejection fraction is visually estimated at 60 %. Tissue Doppler/Mitral Doppler indices are consistent with impaired relaxation (Stage I diastolic dysfunction). Right Ventricle: Normal right ventricular size. Normal right ventricular systolic function. Left Atrium: The left atrium is normal in size. Right Atrium: The right atrium is normal in size. Mitral Valve: Mild mitral leaflet calcification. Mild mitral annular calcification. Trace mitral regurgitation. Aortic Valve: No significant aortic stenosis or insufficiency. Aortic cusps appear mildly calcified. Trace aortic valve regurgitation. Tricuspid Valve: Normal appearance of the tricuspid valve. The estimated Peak RVSP is 22 mmHg. There is trace tricuspid regurgitation. Pericardium: Normal pericardium with no significant pericardial effusion. Aorta: Normal aortic root. IVC: Normal size and normal respiratory collapse consistent with normal right atrial pressure. Conclusions: Normal left ventricular systolic function. Normal left ventricular cavity size. Severe asymmetric septal hypertrophy. Ejection fraction is visually estimated at 60 %. Tissue Doppler/Mitral Doppler indices are consistent with impaired relaxation (Stage I diastolic dysfunction). Mild mitral leaflet calcification. Mild mitral annular calcification. Trace mitral regurgitation. No significant aortic stenosis or insufficiency. Aortic cusps appear mildly calcified. Trace aortic valve regurgitation. Normal appearance of the tricuspid valve. The estimated Peak RVSP is 22 mmHg. There is trace tricuspid regurgitation. Electronically Signed By: Nasir Aggarwal 2019-06-16 19:15:45 PDT
[2019-06-16] MEDS: ATORVASTATIN 80 MG TAB PO SCH (20:16)
[2019-06-17] VITALS (7 sets, daily range): BP systolic 119–155; BP diastolic 75–81; PULSE 64–78; RESP 18–20
[2019-06-17] MEDS: ACCU-CHEK XX SCH (01:36)
[2019-06-17] MEDS: ACETAMINOPHEN 325 MG TAB PO PRN ×3 (04:05→20:56)
[2019-06-17] MEDS: LEVOTHYROXINE 50 MCG TAB PO SCH (05:42)
[2019-06-17] MEDS: INSULIN ASPART [NOVOLOG] 3 ML PEN SC SCH ×4 (07:56→20:57)
[2019-06-17] MEDS: ASPIRIN (EC) 81 MG TAB PO SCH (09:16)
[2019-06-17] MEDS: DORZOLAMIDE 2% 10 ML OPH BOTH EYES SCH ×3 (09:17→20:57)
[2019-06-17] MEDS: metFORMIN 500 MG TAB PO SCH ×2 (09:17→16:50)
[2019-06-17] MEDS: METOPROLOL (XL) 25 MG TAB PO SCH (09:17)
--- NOTE | 2019-06-17 11:28 | CONS ---
Assessment/Plan Assessment/Plan Hospital Course (Demo Recall) IMPRESSION: 1. Chest pain, assess for acute coronary syndrome, somewhat vague description described as a cramping sensation with a cath no significant obstructive disease in 2017.-neg trop x 3 2. Hypertension, mildly elevated. 3. Dyslipidemia. 4. CVA, acute with ongoing left upper extremity and lower extremity weakness.- seen by HEad CT as well, strength improving in RUE/RLE 5. Hypothyroidism. 6. Diabetes mellitus. Recc: -Tele -Continue asa/statin as tolerated -Contineu toprol xl at current dose for now, Ask neuro if any need for permissive HTN at this time -ongoing neuro eval with improving RUE/RLE strength Consultation Date/Type/Reason Admit Date/Time Jun 15, 2019 at 12:19 Initial Consult Date 06/15/19 Type of Consult Cardiology Reason for Consultation Chest pain Requesting Provider: LIBIA JACOBSON Date/Time of Note DATE: 06/17/19 TIME: 11:23 Exam/Review of Systems Vital Signs Vitals Vital Signs Date Temp Pulse Resp B/P (MAP) Pulse Ox O2 O2 Flow FiO2 Time Delivery Rate 06/17/19 98.5 67 20 155/80 97 Room Air 07:09 (105) 06/15/19 2 10:51 Intake and Output 06/16/19 06/16/19 06/17/19 1515:00 23:00 07:00 IntakeIntake Total 350 ml 350 ml 100 ml OutputOutput Total 800 ml 500 ml 800 ml BalanceBalance -450 ml -150 ml -700 ml Exam Exam Review of Systems: CONSTITUTIONAL: No fevers, chills. PULMONARY: No sob CARDIOVASCULAR: No chest pain/palpitations GASTROINTESTINAL: No nausea/vomiting. GENITOURINARY: No hematuria/dysuria. MUSCULOSKELETAL: No myagias/arthalgias. PSYCHIATRIC: The patient denies depression. NEUROLOGIC: focal weakness L sided Constitutional: alert Psych: no complaints Head: normocephalic ENMT: mucosa pink and moist Neck: supple, jvd (9 cm water) Respiratory: clear to auscultation Cardiovascular: regular rate and rhythm Gastrointestinal: soft, non-tender Musculoskeletal: muscle tone (normal), muscle weakness (L sided) Neurological: focal weakness Labs Result Diagram: 06/17/19 0500 06/17/19 0505 Results 24hrs Laboratory Tests Test 06/16/19 11:29 06/16/19 17:29 06/16/19 20:20 06/17/19 05:00 Bedside Glucose 97 105 122 White Blood Count 10.4 Red Blood Count 4.63 Hemoglobin 12.1 Hematocrit 37.3 Mean Corpuscular 80.6 L Volume Mean Corpuscular 26.1 L Hemoglobin Mean Corpuscular 32.4 Hemoglobin Concent Red Cell 14.3 Distribution Width Platelet Count 439 H Mean Platelet Volume 9.0 Immature 0.300 Granulocytes % Neutrophils % 61.6 Lymphocytes % 28.2 Monocytes % 6.8 Eosinophils % 2.5 Basophils % 0.6 Nucleated Red Blood 0.0 Cells % Immature 0.030 Granulocytes # Neutrophils # 6.4 Lymphocytes # 2.9 Monocytes # 0.7 Eosinophils # 0.3 Basophils # 0.1 Nucleated Red Blood 0.0 Cells # Test 06/17/19 05:05 06/17/19 07:42 Sodium Level 140 Potassium Level 3.4 L Chloride Level 105 Carbon Dioxide Level 25 Anion Gap 10 Blood Urea Nitrogen 13 Creatinine 0.62 Est Glomerular > 60 Filtrat Rate mL/min Glucose Level 115 Calcium Level 9.1 Magnesium Level 1.8 Free Thyroxine Index 2.98 Thyroxine (T4) 9.5 Triiodothyronine 31.4 (T3) Uptake Bedside Glucose 106 Medications Medications Current Medications Dorzolamide HCl (Trusopt) 1 drop TID BOTH EYES Last administered on 06/17/19at 09:17; Admin Dose 1 DROP; Start 06/15/19 at 21:00 Levothyroxine Sodium (Synthroid) 50 mcg DAILY@06 PO Last administered on 06/17/19at 05:42; Admin Dose 50 MCG; Start 06/16/19 at 06:00 Metformin HCl (Glucophage) 1,000 mg WITH BREAKFAST DINNE PO Last administered on 06/17/19at 09:17; Admin Dose 1,000 MG; Start 06/15/19 at 18:00 Metoprolol Succinate (Toprol Xl) 25 mg DAILY PO Last administered on 06/17/19at 09:17; Admin Dose 25 MG; Start 06/16/19 at 09:00 Miscellaneous Information 1 ea NOTE XX ; Start 06/15/19 at 16:30 Glucose (Glutose) 15 gm Q15M PRN PO DECREASED GLUCOSE; Start 06/15/19 at 16:30 Glucose (Glutose) 22.5 gm Q15M PRN PO DECREASED GLUCOSE; Start 06/15/19 at 16:30 Dextrose (D50w Syringe) 25 ml Q15M PRN IV DECREASED GLUCOSE; Start 06/15/19 at 16:30 Dextrose (D50w Syringe) 50 ml Q15M PRN IV DECREASED GLUCOSE; Start 06/15/19 at 16:30 Glucagon (Glucagen) 1 mg Q15M PRN IM DECREASED GLUCOSE; Start 06/15/19 at 16:30 Glucose (Glutose) 15 gm Q15M PRN BUCCAL DECREASED GLUCOSE; Start 06/15/19 at 16:30 Aspirin (Halfprin) 81 mg DAILY PO Last administered on 06/17/19at 09:16; Admin Dose 81 MG; Start 06/16/19 at 09:00 Diagnostic Test (Pha) (Accu-Chek) 1 ea 02 XX ; Start 06/16/19 at 02:00 Insulin Aspart (Novolog Insulin Pen) NOVOLOG *MILD* ALGORITHM WITH MEALS BEDTIME SC ; Start 06/15/19 at 21:00 Atorvastatin Calcium (Lipitor) 80 mg HS PO Last administered on 06/16/19at 20:16; Admin Dose 80 MG; Start 06/16/19 at 21:00 Hydralazine HCl (Apresoline) 10 mg Q4H PRN IV SBP >170; Start 06/16/19 at 12:30 Acetaminophen (Tylenol Tab) 650 mg Q4H PRN PO MILD PAIN(1-3)OR ELEVATED TEMP Last administered on 06/17/19at 09:16; Admin Dose 650 MG; Start 06/17/19 at 04:00 HILARIA WINSTON 19, 2019 11:28
--- NOTE | 2019-06-17 11:36 | PN ---
Date/Time of Note Date/Time of Note DATE: 06/17/19 TIME: 11:31 Assessment/Plan VTE Prophylaxis Risk score (from [facility])>0 risk: 3 SCD applied (from [facility] [place]): Yes SCD contraindicated: other Pharmacological prophylaxis: other Pharm contraindication: other Lines/Catheters IV Catheter Type (from [facility]): Saline Lock Urinary Cath still in place: No Assessment/Plan Assessment/Plan - Hypokalemia- replace k, am BMP -CVA (cerebral vascular accident). Start aspirin. Will obtain swallow evaluation, PT OT. Obtain lipid panel. Dr. Bailey is asked to see patient in neurology consultation. -Chest pain, will obtain cardiac enzymes every 8 hours x3. 2D echo. Dr. Aggarwal is asked to see patient in cardiology consultation. -Cardiomyopathy -Diabetes mellitus type 2, continue metformin and NovoLog per mild algorithm sliding scale, will obtain hemoglobin A1c. -Hypertension, continue metoprolol. -Hypothyroidism, will obtain TSH, continue levothyroxine. Further recommendations based on clinical course. Plan of care discussed with Dr. Stevenson. Result Diagram: 06/17/19 0500 06/17/19 0505 Results 24hrs Laboratory Tests Test 06/16/19 17:29 06/16/19 20:20 06/17/19 05:00 06/17/19 05:05 Bedside Glucose 105 122 White Blood Count 10.4 Red Blood Count 4.63 Hemoglobin 12.1 Hematocrit 37.3 Mean Corpuscular 80.6 L Volume Mean Corpuscular 26.1 L Hemoglobin Mean Corpuscular 32.4 Hemoglobin Concent Red Cell 14.3 Distribution Width Platelet Count 439 H Mean Platelet Volume 9.0 Immature 0.300 Granulocytes % Neutrophils % 61.6 Lymphocytes % 28.2 Monocytes % 6.8 Eosinophils % 2.5 Basophils % 0.6 Nucleated Red Blood 0.0 Cells % Immature 0.030 Granulocytes # Neutrophils # 6.4 Lymphocytes # 2.9 Monocytes # 0.7 Eosinophils # 0.3 Basophils # 0.1 Nucleated Red Blood 0.0 Cells # Sodium Level 140 Potassium Level 3.4 L Chloride Level 105 Carbon Dioxide Level 25 Anion Gap 10 Blood Urea Nitrogen 13 Creatinine 0.62 Est Glomerular > 60 Filtrat Rate mL/min Glucose Level 115 Calcium Level 9.1 Magnesium Level 1.8 Free Thyroxine Index 2.98 Thyroxine (T4) 9.5 Triiodothyronine 31.4 (T3) Uptake Test 06/17/19 07:42 Bedside Glucose 106 Subjective 24 Hr Interval Summary Free Text/Dictation nad afebrile Hypokalemia c/o headache left sided weakness is improving able to ambulate Eyes: no complaints ENT: no complaints Respiratory: no complaints Cardiovascular: no complaints Gastrointestinal: no complaints Genitourinary: no complaints Neurologic: no complaints Psychological: nl mood/affect Exam/Review of Systems Exam Vitals Vital Signs Date Temp Pulse Resp B/P (MAP) Pulse Ox O2 O2 Flow FiO2 Time Delivery Rate 06/17/19 98.5 67 20 155/80 97 Room Air 07:09 (105) 06/15/19 2 10:51 Intake and Output 06/16/19 06/16/19 06/17/19 1515:00 23:00 07:00 IntakeIntake Total 350 ml 350 ml 100 ml OutputOutput Total 800 ml 500 ml 800 ml BalanceBalance -450 ml -150 ml -700 ml Constitutional: alert, well developed Psych: nl mood/affect Eyes: nl lids, nl sclera ENMT: nl external ears & nose Neck: non-tender Respiratory: clear to auscultation Cardiovascular: nl pulses, other (s1s2) Gastrointestinal: soft, non-tender Musculoskeletal: nl extremities to inspection Extremities: normal pulses Neurological: focal weakness (left sided mild- moderate weakness), other (alert/reponsive) Skin: nl turgor Lymph: nontender Results Results 24hrs Laboratory Tests Test 06/16/19 17:29 06/16/19 20:20 06/17/19 05:00 06/17/19 05:05 Bedside Glucose 105 122 White Blood Count 10.4 Red Blood Count 4.63 Hemoglobin 12.1 Hematocrit 37.3 Mean Corpuscular 80.6 L Volume Mean Corpuscular 26.1 L Hemoglobin Mean Corpuscular 32.4 Hemoglobin Concent Red Cell 14.3 Distribution Width Platelet Count 439 H Mean Platelet Volume 9.0 Immature 0.300 Granulocytes % Neutrophils % 61.6 Lymphocytes % 28.2 Monocytes % 6.8 Eosinophils % 2.5 Basophils % 0.6 Nucleated Red Blood 0.0 Cells % Immature 0.030 Granulocytes # Neutrophils # 6.4 Lymphocytes # 2.9 Monocytes # 0.7 Eosinophils # 0.3 Basophils # 0.1 Nucleated Red Blood 0.0 Cells # Sodium Level 140 Potassium Level 3.4 L Chloride Level 105 Carbon Dioxide Level 25 Anion Gap 10 Blood Urea Nitrogen 13 Creatinine 0.62 Est Glomerular > 60 Filtrat Rate mL/min Glucose Level 115 Calcium Level 9.1 Magnesium Level 1.8 Free Thyroxine Index 2.98 Thyroxine (T4) 9.5 Triiodothyronine 31.4 (T3) Uptake Test 06/17/19 07:42 Bedside Glucose 106 Medications Medication Current Medications Dorzolamide HCl (Trusopt) 1 drop TID BOTH EYES Last administered on 06/17/19 09:17; Admin Dose 1 DROP; Start 06/15/19 at 21:00 Levothyroxine Sodium (Synthroid) 50 mcg DAILY@06 PO Last administered on 06/17/19 05:42; Admin Dose 50 MCG; Start 06/16/19 at 06:00 Metformin HCl (Glucophage) 1,000 mg WITH BREAKFAST DINNE PO Last administered on 06/17/19 09:17; Admin Dose 1,000 MG; Start 06/15/19 at 18:00 Metoprolol Succinate (Toprol Xl) 25 mg DAILY PO Last administered on 06/17/19 09:17; Admin Dose 25 MG; Start 06/16/19 at 09:00 Miscellaneous Information 1 ea NOTE XX ; Start 06/15/19 at 16:30 Glucose (Glutose) 15 gm Q15M PRN PO DECREASED GLUCOSE; Start 06/15/19 at 16:30 Glucose (Glutose) 22.5 gm Q15M PRN PO DECREASED GLUCOSE; Start 06/15/19 at 16:30 Dextrose (D50w Syringe) 25 ml Q15M PRN IV DECREASED GLUCOSE; Start 06/15/19 at 16:30 Dextrose (D50w Syringe) 50 ml Q15M PRN IV DECREASED GLUCOSE; Start 06/15/19 at 16:30 Glucagon (Glucagen) 1 mg Q15M PRN IM DECREASED GLUCOSE; Start 06/15/19 at 16:30 Glucose (Glutose) 15 gm Q15M PRN BUCCAL DECREASED GLUCOSE; Start 06/15/19 at 16:30 Aspirin (Halfprin) 81 mg DAILY PO Last administered on 06/17/19 09:16; Admin Dose 81 MG; Start 06/16/19 at 09:00 Diagnostic Test (Pha) (Accu-Chek) 1 ea 02 XX ; Start 06/16/19 at 02:00 Insulin Aspart (Novolog Insulin Pen) NOVOLOG *MILD* ALGORITHM WITH MEALS BEDTIME SC ; Start 06/15/19 at 21:00 Atorvastatin Calcium (Lipitor) 80 mg HS PO Last administered on 06/16/19at 20:16; Admin Dose 80 MG; Start 06/16/19 at 21:00 Hydralazine HCl (Apresoline) 10 mg Q4H PRN IV SBP >170; Start 06/16/19 at 12:30 Acetaminophen (Tylenol Tab) 650 mg Q4H PRN PO MILD PAIN(1-3)OR ELEVATED TEMP Last administered on 06/17/19at 09:16; Admin Dose 650 MG; Start 06/17/19 at 04:00 LULU PARRISH Jun 17, 2019 11:36
--- NOTE | 2019-06-17 11:57 | CONS ---
Assessment/Plan Assessment/Plan Assessment/Plan (Recall) 58 F c/ multiple cerebrovascular risk factors, who presents for evaluation of left hemiparesis x 5 days. MRI brain confirmed R hemispheric, predominantly MCA, infarctions... MRA head was notable for R M2 stenosis; MRA neck is unrevealing. Echo is unrevealing LDL 158 A1C 6.5 RPR neg P: Agree w/ asa/lipitor daily for now PT/OT/ST BP control and other medical management per primary Will follow clinically Consultation Date/Type/Reason Admit Date/Time Jun 15, 2019 at 12:19 Type of Consult Neurology Reason for Consultation stroke Requesting Provider: LIBIA JACOBSON Date/Time of Note DATE: 06/17/19 TIME: 11:54 24 HR Interval Summary Free Text/Dictation Noted headache o/n....and improved strength on left side. Exam/Review of Systems Exam Vitals Vital Signs Date Temp Pulse Resp B/P (MAP) Pulse Ox O2 O2 Flow FiO2 Time Delivery Rate 06/17/19 98.5 67 20 155/80 97 Room Air 07:09 (105) 06/15/19 2 10:51 Intake and Output 06/16/19 06/16/19 06/17/19 1515:00 23:00 07:00 IntakeIntake Total 350 ml 350 ml 100 ml OutputOutput Total 800 ml 500 ml 800 ml BalanceBalance -450 ml -150 ml -700 ml Results Result Diagram: 06/17/19 0500 06/17/19 0505 Results 24hrs Laboratory Tests Test 06/16/19 17:29 06/16/19 20:20 06/17/19 05:00 06/17/19 05:05 Bedside Glucose 105 122 White Blood Count 10.4 Red Blood Count 4.63 Hemoglobin 12.1 Hematocrit 37.3 Mean Corpuscular 80.6 L Volume Mean Corpuscular 26.1 L Hemoglobin Mean Corpuscular 32.4 Hemoglobin Concent Red Cell 14.3 Distribution Width Platelet Count 439 H Mean Platelet Volume 9.0 Immature 0.300 Granulocytes % Neutrophils % 61.6 Lymphocytes % 28.2 Monocytes % 6.8 Eosinophils % 2.5 Basophils % 0.6 Nucleated Red Blood 0.0 Cells % Immature 0.030 Granulocytes # Neutrophils # 6.4 Lymphocytes # 2.9 Monocytes # 0.7 Eosinophils # 0.3 Basophils # 0.1 Nucleated Red Blood 0.0 Cells # Sodium Level 140 Potassium Level 3.4 L Chloride Level 105 Carbon Dioxide Level 25 Anion Gap 10 Blood Urea Nitrogen 13 Creatinine 0.62 Est Glomerular > 60 Filtrat Rate mL/min Glucose Level 115 Calcium Level 9.1 Magnesium Level 1.8 Free Thyroxine Index 2.98 Thyroxine (T4) 9.5 Triiodothyronine 31.4 (T3) Uptake Test 06/17/19 07:42 06/17/19 11:46 Bedside Glucose 106 93 Medications Medication Current Medications Dorzolamide HCl (Trusopt) 1 drop TID BOTH EYES Last administered on 06/17/19 11:48; Admin Dose 1 DROP; Start 06/15/19 at 21:00 Levothyroxine Sodium (Synthroid) 50 mcg DAILY@06 PO Last administered on 06/17/19 05:42; Admin Dose 50 MCG; Start 06/16/19 at 06:00 Metformin HCl (Glucophage) 1,000 mg WITH BREAKFAST DINNE PO Last administered on 06/17/19 09:17; Admin Dose 1,000 MG; Start 06/15/19 at 18:00 Metoprolol Succinate (Toprol Xl) 25 mg DAILY PO Last administered on 06/17/19 09:17; Admin Dose 25 MG; Start 06/16/19 at 09:00 Miscellaneous Information 1 ea NOTE XX ; Start 06/15/19 at 16:30 Glucose (Glutose) 15 gm Q15M PRN PO DECREASED GLUCOSE; Start 06/15/19 at 16:30 Glucose (Glutose) 22.5 gm Q15M PRN PO DECREASED GLUCOSE; Start 06/15/19 at 16:30 Dextrose (D50w Syringe) 25 ml Q15M PRN IV DECREASED GLUCOSE; Start 06/15/19 at 16:30 Dextrose (D50w Syringe) 50 ml Q15M PRN IV DECREASED GLUCOSE; Start 06/15/19 at 16:30 Glucagon (Glucagen) 1 mg Q15M PRN IM DECREASED GLUCOSE; Start 06/15/19 at 16:30 Glucose (Glutose) 15 gm Q15M PRN BUCCAL DECREASED GLUCOSE; Start 06/15/19 at 16:30 Aspirin (Halfprin) 81 mg DAILY PO Last administered on 06/17/19 09:16; Admin Dose 81 MG; Start 06/16/19 at 09:00 Diagnostic Test (Pha) (Accu-Chek) 1 02 XX ; Start 06/16/19 at 02:00 Insulin Aspart (Novolog Insulin Pen) NOVOLOG *MILD* ALGORITHM WITH MEALS BEDTIME SC ; Start 06/15/19 at 21:00 Atorvastatin Calcium (Lipitor) 80 mg HS PO Last administered on 06/16/19at 20:16; Admin Dose 80 MG; Start 06/16/19 at 21:00 Hydralazine HCl (Apresoline) 10 mg Q4H PRN IV SBP >170; Start 06/16/19 at 12:30 Acetaminophen (Tylenol Tab) 650 mg Q4H PRN PO MILD PAIN(1-3)OR ELEVATED TEMP Last administered on 06/17/19at 09:16; Admin Dose 650 MG; Start 06/17/19 at 04:00 ALYCIA YUNG Jun 17, 2019 11:57
[2019-06-17] MEDS ORDERED: DIPHENHYDRAMINE 50 MG INJ IV PRN (17:30)
[2019-06-17] MEDS ORDERED: DIPHENHYDRAMINE 25 MG CAP PO PRN (18:00)
[2019-06-17] MEDS: ATORVASTATIN 80 MG TAB PO SCH (20:56)
[2019-06-18] MEDS: ACCU-CHEK XX SCH (01:17)
[2019-06-18 04:00] VITALS: BP 134/74; PULSE 57; RESP 20
[2019-06-18] MEDS: LEVOTHYROXINE 50 MCG TAB PO SCH (05:21)
[2019-06-18 07:17] VITALS: BP 142/81; PULSE 67; RESP 19
[2019-06-18] MEDS: INSULIN ASPART [NOVOLOG] 3 ML PEN SC SCH ×4 (08:00→20:28)
[2019-06-18] MEDS: metFORMIN 500 MG TAB PO SCH ×2 (08:14→17:51)
[2019-06-18] MEDS: DORZOLAMIDE 2% 10 ML OPH BOTH EYES SCH ×3 (08:15→20:25)
[2019-06-18] MEDS: METOPROLOL (XL) 25 MG TAB PO SCH (08:15)
[2019-06-18] MEDS: ASPIRIN (EC) 81 MG TAB PO SCH (08:15)
[2019-06-18 11:21] VITALS: BP 140/76; PULSE 70; RESP 18
--- NOTE | 2019-06-18 11:34 | CONS ---
Consult Date/Type/Reason Admit Date/Time Jun 15, 2019 at 12:19 Initial Consult Date Requesting Provider: LIBIA JACOBSON Date/Time of Note DATE: 06/18/19 TIME: 11:32 Subjective No acute events - pt comfortable - no CP now - in good fluid status - con't post CVA rehab ROS: No fever, no chills, no nausea, no vomiting, no diarrhea/constipation No recent weight changes No chest pain, no PND, no orthopnea No dizziness, blurred vision No thirst, no heat or cold intolerance Objective Vitals Vital Signs Date Temp Pulse Resp B/P (MAP) Pulse Ox O2 O2 Flow FiO2 Time Delivery Rate 06/18/19 98.1 70 18 140/76 93 11:21 (97) 06/17/19 Room Air 11:59 06/15/19 2 10:51 Intake and Output 06/17/19 06/17/19 06/18/19 1515:00 23:00 07:00 IntakeIntake Total 360 ml 700 ml 300 ml BalanceBalance 360 ml 700 ml 300 ml Exam General: WN/WD/NAD, AOx 2-3 HEENT: Unicetric/atraumatic/EOMI ( follow commands) NECK: JVD elevated, no thyromegaly Lymph: no lymphadenopathy HEART: regular with no S3, II/ systolic murmur at apex LUNGS: Coarse sounds ABD: soft, NT, ND, +BS : Intact Neuro: s/p CVA SKIN: chronic changes EXT: trace edema Results/Medications Result Diagram: 06/18/19 0524 06/18/19 0524 Results 24 hrs Laboratory Tests Test 06/17/19 11:46 06/17/19 16:43 06/17/19 20:53 06/18/19 05:24 Bedside Glucose 93 95 107 White Blood Count 9.7 Red Blood Count 4.72 Hemoglobin 12.3 Hematocrit 38.7 Mean Corpuscular 82.0 Volume Mean Corpuscular 26.1 L Hemoglobin Mean Corpuscular 31.8 L Hemoglobin Concent Red Cell 14.1 Distribution Width Platelet Count 437 H Mean Platelet Volume 9.1 Immature 0.300 Granulocytes % Neutrophils % 61.6 Lymphocytes % 28.2 Monocytes % 6.5 Eosinophils % 2.7 Basophils % 0.7 Nucleated Red Blood 0.0 Cells % Immature 0.030 Granulocytes # Neutrophils # 6.0 Lymphocytes # 2.7 Monocytes # 0.6 Eosinophils # 0.3 Basophils # 0.1 Nucleated Red Blood 0.0 Cells # Sodium Level 139 Potassium Level 3.7 Chloride Level 105 Carbon Dioxide Level 26 Anion Gap 8 Blood Urea Nitrogen 13 Creatinine 0.62 Est Glomerular > 60 Filtrat Rate mL/min Glucose Level 94 Calcium Level 9.2 Test 06/18/19 08:11 Bedside Glucose 99 Home Meds Reported Medications Dorzolamide Hcl* (Dorzolamide Hcl*) 10 Ml Drops, 1 DROP BOTH EYES TID, #1 EA 06/15/19 Lisinopril* (Lisinopril*) 10 Mg Tablet, 10 MG PO DAILY, #30 TAB 06/15/19 Metformin Hcl* (Metformin Hcl*) 1,000 Mg Tablet, 1000 MG PO WITH BREAKFAST DINNE, #60 TAB 06/15/19 Levothyroxine Sodium* (Levothyroxine Sodium*) 50 Mcg Tablet, 50 MCG PO BEFORE BREAKFAST, #30 TAB 06/15/19 Hydrocodone/Acetaminophen (Alba 5-325 Tablet) 1 Each Tablet, 1 EACH PO Q8H, TAB 06/15/19 Gabapentin* (Gabapentin*) 100 Mg Capsule, 100 MG PO BID, #90 CAP 06/15/19 Metoprolol Succinate* (Toprol XL*) 25 Mg Tab.sr.24h, 25 MG PO DAILY, #30 TAB 06/15/19 Discontinued Reported Medications Metoprolol Succinate* (Toprol XL*) 25 Mg Tab.sr.24h, 25 MG PO DAILY, #30 TAB 03/04/17 Medications Current Medications Dorzolamide HCl (Trusopt) 1 drop TID BOTH EYES Last administered on 06/18/19at 08:15; Admin Dose 1 DROP; Start 06/15/19 at 21:00 Levothyroxine Sodium (Synthroid) 50 mcg DAILY@06 PO Last administered on 06/18/19at 05:21; Admin Dose 50 MCG; Start 06/16/19 at 06:00 Metformin HCl (Glucophage) 1,000 mg WITH BREAKFAST DINNE PO Last administered on 06/18/19at 08:14; Admin Dose 1,000 MG; Start 06/15/19 at 18:00 Metoprolol Succinate (Toprol Xl) 25 mg DAILY PO Last administered on 06/18/19at 08:15; Admin Dose 25 MG; Start 06/16/19 at 09:00 Miscellaneous Information 1 ea NOTE XX ; Start 06/15/19 at 16:30 Glucose (Glutose) 15 gm Q15M PRN PO DECREASED GLUCOSE; Start 06/15/19 at 16:30 Glucose (Glutose) 22.5 gm Q15M PRN PO DECREASED GLUCOSE; Start 06/15/19 at 16:30 Dextrose (D50w Syringe) 25 ml Q15M PRN IV DECREASED GLUCOSE; Start 06/15/19 at 16:30 Dextrose (D50w Syringe) 50 ml Q15M PRN IV DECREASED GLUCOSE; Start 06/15/19 at 16:30 Glucagon (Glucagen) 1 mg Q15M PRN IM DECREASED GLUCOSE; Start 06/15/19 at 16:30 Glucose (Glutose) 15 gm Q15M PRN BUCCAL DECREASED GLUCOSE; Start 06/15/19 at 16:30 Aspirin (Halfprin) 81 mg DAILY PO Last administered on 06/18/19at 08:15; Admin Dose 81 MG; Start 06/16/19 at 09:00 Diagnostic Test (Pha) (Accu-Chek) 1 ea 02 XX ; Start 06/16/19 at 02:00 Insulin Aspart (Novolog Insulin Pen) NOVOLOG *MILD* ALGORITHM WITH MEALS BEDTIME SC ; Start 06/15/19 at 21:00 Atorvastatin Calcium (Lipitor) 80 mg HS PO Last administered on 06/17/19at 20:56 ; Admin Dose 80 MG; Start 06/16/19 at 21:00 Hydralazine HCl (Apresoline) 10 mg Q4H PRN IV SBP >170; Start 06/16/19 at 12:30 Acetaminophen (Tylenol Tab) 650 mg Q4H PRN PO MILD PAIN(1-3)OR ELEVATED TEMP Last administered on 06/17/19at 20:56; Admin Dose 650 MG; Start 06/17/19 at 04:00 Diphenhydramine HCl (Benadryl) 25 mg Q6H PRN PO ITCHING Last administered on 06/17/19at 18:07; Admin Dose 25 MG; Start 06/17/19 at 18:00 Assessment/Plan Hospital Course (Demo Recall) 1. Chest pain, assess for acute coronary syndrome, somewhat vague description described as a cramping sensation with a cath no significant obstructive disease in 2017.-neg trop x 3 - r/o CT - on CP - con't med rx 2. Hypertension, mildly elevated - BP well maintained now 3. Dyslipidemia. 4. CVA, acute with ongoing left upper extremity and lower extremity weakness.- seen by HEad CT as well, strength improving in RUE/RLE - now with PT 5. Hypothyroidism - replace as needed 6. Diabetes mellitus - on meds, keep euglycemic GILBERTO VALLES MD Jun 18, 2019 11:34
--- NOTE | 2019-06-18 13:56 | PN ---
Date/Time of Note Date/Time of Note DATE: 06/18/19 TIME: 13:51 Assessment/Plan VTE Prophylaxis Risk score (from [facility] [place])>0 risk: 3 SCD applied (from [facility] [place]): Yes SCD contraindicated: other Pharmacological prophylaxis: other Pharm contraindication: other Lines/Catheters [facility] (from [facility] Saline Lock Urinary Cath still in place: No Assessment/Plan Assessment/Plan - Hypokalemia- reSOLVED -CVA (cerebral vascular accident). Start aspirin. Will obtain swallow evaluation, PT OT. Obtain lipid panel. Dr. Bailey is asked to see patient in neurology consultation. -Chest pain, will obtain cardiac enzymes every 8 hours x3. 2D echo. Dr. Aggarwal is asked to see patient in cardiology consultation. -Cardiomyopathy -Diabetes mellitus type 2, continue metformin and NovoLog per mild algorithm sliding scale, will obtain hemoglobin A1c. -Hypertension, continue metoprolol. -Hypothyroidism, will obtain TSH, continue levothyroxine. Further recommendations based on clinical course. Plan of care discussed with Dr. Stevenson. Result Diagram: 06/18/1952306/18/19 0524 Results 24hrs Laboratory Tests Test 06/17/19 16:43 06/17/19 20:53 06/18/19 05:24 06/18/19 08:11 Bedside Glucose 95 107 99 White Blood Count 9.7 Red Blood Count 4.72 Hemoglobin 12.3 Hematocrit 38.7 Mean Corpuscular 82.0 Volume Mean Corpuscular 26.1 L Hemoglobin Mean Corpuscular 31.8 L Hemoglobin Concent Red Cell 14.1 Distribution Width Platelet Count 437 H Mean Platelet Volume 9.1 Immature 0.300 Granulocytes % Neutrophils % 61.6 Lymphocytes % 28.2 Monocytes % 6.5 Eosinophils % 2.7 Basophils % 0.7 Nucleated Red Blood 0.0 Cells % Immature 0.030 Granulocytes # Neutrophils # 6.0 Lymphocytes # 2.7 Monocytes # 0.6 Eosinophils # 0.3 Basophils # 0.1 Nucleated Red Blood 0.0 Cells # Sodium Level 139 Potassium Level 3.7 Chloride Level 105 Carbon Dioxide Level 26 Anion Gap 8 Blood Urea Nitrogen 13 Creatinine 0.62 Est Glomerular > 60 Filtrat Rate mL/min Glucose Level 94 Calcium Level 9.2 Test 06/18/19 11:47 Bedside Glucose 90 Subjective 24 Hr Interval Summary Free Text/Dictation nad afebrile Hypokalemia-RESOLVED c/o headache left sided weakness is improving able to ambulate Constitutional: improved ENT: no complaints Respiratory: no complaints Cardiovascular: no complaints Gastrointestinal: no complaints Genitourinary: no complaints Musculoskeletal: no complaints Skin: no complaints Neurologic: focal-weakness (Left sided weakness is improving;) Psychological: nl mood/affect Immunologic: no complaints Exam/Review of Systems Exam Vitals Vital Signs Date Temp Pulse Resp B/P (MAP) Pulse Ox O2 O2 Flow FiO2 Time Delivery Rate 06/18/19 98.1 70 18 140/76 93 11:21 (97) 06/17/19 Room Air 11:59 06/15/19 2 10:51 Intake and Output 06/17/19 06/17/19 06/18/19 1515:00 23:00 07:00 IntakeIntake Total 360 ml 700 ml 300 ml BalanceBalance 360 ml 700 ml 300 ml Constitutional: alert, well developed Psych: nl mood/affect Head: atraumatic Eyes: nl lids, nl sclera ENMT: nl external ears & nose Neck: non-tender Respiratory: clear to auscultation Cardiovascular: nl pulses, other (S1S2) Gastrointestinal: soft, non-tender Musculoskeletal: nl extremities to inspection Extremities: normal pulses Neurological: nl speech, focal weakness (L) Lymph: nontender Results Results 24hrs Laboratory Tests Test 06/17/19 16:43 06/17/19 20:53 06/18/19 05:24 06/18/19 08:11 Bedside Glucose 95 107 99 White Blood Count 9.7 Red Blood Count 4.72 Hemoglobin 12.3 Hematocrit 38.7 Mean Corpuscular 82.0 Volume Mean Corpuscular 26.1 L Hemoglobin Mean Corpuscular 31.8 L Hemoglobin Concent Red Cell 14.1 Distribution Width Platelet Count 437 H Mean Platelet Volume 9.1 Immature 0.300 Granulocytes % Neutrophils % 61.6 Lymphocytes % 28.2 Monocytes % 6.5 Eosinophils % 2.7 Basophils % 0.7 Nucleated Red Blood 0.0 Cells % Immature 0.030 Granulocytes # Neutrophils # 6.0 Lymphocytes # 2.7 Monocytes # 0.6 Eosinophils # 0.3 Basophils # 0.1 Nucleated Red Blood 0.0 Cells # Sodium Level 139 Potassium Level 3.7 Chloride Level 105 Carbon Dioxide Level 26 Anion Gap 8 Blood Urea Nitrogen 13 Creatinine 0.62 Est Glomerular > 60 Filtrat Rate mL/min Glucose Level 94 Calcium Level 9.2 Test 06/18/19 11:47 Bedside Glucose 90 Medications Medication Current Medications Dorzolamide HCl (Trusopt) 1 drop TID BOTH EYES Last administered on 06/18/19at 08:15; Admin Dose 1 DROP; Start 06/15/19 at 21:00 Levothyroxine Sodium (Synthroid) 50 mcg DAILY@06 PO Last administered on 06/18/19at 05:21; Admin Dose 50 MCG; Start 06/16/19 at 06:00 Metformin HCl (Glucophage) 1,000 mg WITH BREAKFAST DINNE PO Last administered on 06/18/19at 08:14; Admin Dose 1,000 MG; Start 06/15/19 at 18:00 Metoprolol Succinate (Toprol Xl) 25 mg DAILY PO Last administered on 06/18/19at 08:15; Admin Dose 25 MG; Start 06/16/19 at 09:00 Miscellaneous Information 1 ea NOTE XX ; Start 06/15/19 at 16:30 Glucose (Glutose) 15 gm Q15M PRN PO DECREASED GLUCOSE; Start 06/15/19 at 16:30 Glucose (Glutose) 22.5 gm Q15M PRN PO DECREASED GLUCOSE; Start 06/15/19 at 16:30 Dextrose (D50w Syringe) 25 ml Q15M PRN IV DECREASED GLUCOSE; Start 06/15/19 at 16:30 Dextrose (D50w Syringe) 50 ml Q15M PRN IV DECREASED GLUCOSE; Start 06/15/19 at 16:30 Glucagon (Glucagen) 1 mg Q15M PRN IM DECREASED GLUCOSE; Start 06/15/19 at 16:30 Glucose (Glutose) 15 gm Q15M PRN BUCCAL DECREASED GLUCOSE; Start 06/15/19 at 16:30 Aspirin (Halfprin) 81 mg DAILY PO Last administered on 06/18/19at 08:15; Admin Dose 81 MG; Start 06/16/19 at 09:00 Diagnostic Test (Pha) (Accu-Chek) 1 ea 02 XX ; Start 06/16/19 at 02:00 Insulin Aspart (Novolog Insulin Pen) NOVOLOG *MILD* ALGORITHM WITH MEALS BED TIME SC ; Start 06/15/19 at 21:00 Atorvastatin Calcium (Lipitor) 80 mg HS PO Last administered on 7/19/19at 20:56; Admin Dose 80 MG; Start 06/16/19 at 21:00 Hydralazine HCl (Apresoline) 10 mg Q4H PRN IV SBP >170; Start 06/16/19 at 12:30 Acetaminophen (Tylenol Tab) 650 mg Q4H PRN PO MILD PAIN(1-3)OR ELEVATED TEMP Last administered on 06/17/19 20:56; Admin Dose 650 MG; Start 06/17/19 at 04:00 Diphenhydramine HCl (Benadryl) 25 mg Q6H PRN PO ITCHING Last administered on 06/17/19 18:07; Admin Dose 25 MG; Start 06/17/19 at 18:00 LULU PARRISH Jun 18, 2019 13:56
[2019-06-18 15:19] VITALS: BP 144/79; PULSE 88; RESP 18
--- NOTE | 2019-06-18 16:05 | RADRPT ---
Vent Rate: 66 bpm RR Interval: 912 msec VT Interval: 195 msec QRS Duration: 106 msec QT Interval: 455 msec QTC Interval: 476 msec P-R-T [place]: 63 - -55 - 31 degrees Sinus rhythm...normal P axis, V-rate 50- 99 LAD, consider left anterior fascicular block...axis(240,-40), S>R II III aVF Left ventricular hypertrophy...multiple LVH criteria Electronically Signed By: Alpesh Dietz
[2019-06-18] MEDS: ACETAMINOPHEN 325 MG TAB PO PRN (17:51)
[2019-06-18] MEDS ORDERED: NITROGLYCERIN (SL) 0.4 MG TAB SL PRN (19:30)
[2019-06-18 19:50] VITALS: BP 116/80; PULSE 81; RESP 17
[2019-06-18] MEDS: ATORVASTATIN 80 MG TAB PO SCH (20:25)
[2019-06-18 23:57] VITALS: BP 136/77; PULSE 75; RESP 18
[2019-06-19] MEDS: ACCU-CHEK XX SCH (02:00)
[2019-06-19 04:00] VITALS: BP 129/76; PULSE 69; RESP 18
[2019-06-19] MEDS: LEVOTHYROXINE 50 MCG TAB PO SCH (05:40)
[2019-06-19 07:20] VITALS: BP 121/68; PULSE 70; RESP 20
[2019-06-19] MEDS: INSULIN ASPART [NOVOLOG] 3 ML PEN SC SCH ×4 (08:00→20:31)
[2019-06-19] MEDS: METOPROLOL (XL) 25 MG TAB PO SCH (08:14)
[2019-06-19] MEDS: ASPIRIN (EC) 81 MG TAB PO SCH (08:14)
[2019-06-19] MEDS: ACETAMINOPHEN 325 MG TAB PO PRN ×2 (08:15→20:32)
[2019-06-19] MEDS: metFORMIN 500 MG TAB PO SCH ×2 (08:17→17:13)
[2019-06-19] MEDS: DORZOLAMIDE 2% 10 ML OPH BOTH EYES SCH ×3 (08:18→20:25)
--- NOTE | 2019-06-19 11:08 | CONS ---
Consult Date/Type/Reason Admit Date/Time Jun 15, 2019 at 12:19 Initial Consult Date Requesting Provider: LIBIA JACOBSON Date/Time of Note DATE: 06/19/19 TIME: 11:06 Subjective NO acute events - CP free - no focal ectopy on tele - con't med rx now. ROS: No fever, no chills, no nausea, no vomiting, no diarrhea/constipation Objective Vitals Vital Signs Date Temp Pulse Resp B/P (MAP) Pulse Ox O2 O2 Flow FiO2 Time Delivery Rate 06/19/19 97.9 70 20 121/68 100 Nasal 07:20 (85) Cannula 06/15/19 2 10:51 Intake and Output 06/18/19 06/18/19 06/19/19 1515:00 23:00 07:00 IntakeIntake Total 480 ml 240 ml 440 ml BalanceBalance 480 ml 240 ml 440 ml Exam General: WN/WD/NAD, AOx 3 oxygen on now HEENT: Unicetric/atraumatic/EOMI (follow commands) NECK: JVD elevated, no thyromegaly Lymph: no lymphadenopathy HEART: regular with no S3, II/ systolic murmur at apex, PMI L LUNGS: Coarse sounds ABD: soft, NT, ND, +BS : Intact Neuro: s/p CVA SKIN: chronic changes EXT: trace edema Results/Medications Result Diagram: 06/19/1945006/19/19 0451 Results 24 hrs Laboratory Tests Test 06/18/19 11:47 06/18/19 17:43 06/18/19 20:27 06/19/19 00:07 Bedside Glucose 90 93 95 Troponin I < 0.012 Test 06/19/19 04:51 06/19/19 08:13 White Blood Count 10.5 Red Blood Count 4.82 Hemoglobin 12.6 Hematocrit 39.4 Mean Corpuscular 81.7 L Volume Mean Corpuscular 26.1 L Hemoglobin Mean Corpuscular 32.0 Hemoglobin Concent Red Cell 14.3 Distribution Width Platelet Count 447 H Mean Platelet Volume 9.3 Immature 0.300 Granulocytes % Neutrophils % 62.0 Lymphocytes % 27.9 Monocytes % 6.4 Eosinophils % 2.6 Basophils % 0.8 Nucleated Red Blood 0.0 Cells % Immature 0.030 Granulocytes # Neutrophils # 6.5 Lymphocytes # 2.9 Monocytes # 0.7 Eosinophils # 0.3 Basophils # 0.1 Nucleated Red Blood 0.0 Cells # Sodium Level 140 Potassium Level 3.7 Chloride Level 104 Carbon Dioxide Level 28 Anion Gap 8 Blood Urea Nitrogen 12 Creatinine 0.66 Est Glomerular > 60 Filtrat Rate mL/min Glucose Level 105 Calcium Level 9.4 Troponin I < 0.012 Bedside Glucose 125 Home Meds Reported Medications Dorzolamide Hcl* (Dorzolamide Hcl*) 10 Ml Drops, 1 DROP BOTH EYES TID, #1 EA 06/15/19 Lisinopril* (Lisinopril*) 10 Mg Tablet, 10 MG PO DAILY, #30 TAB 06/15/19 Metformin Hcl* (Metformin Hcl*) 1,000 Mg Tablet, 1000 MG PO WITH BREAKFAST DINNE, #60 TAB 06/15/19 Levothyroxine Sodium* (Levothyroxine Sodium*) 50 Mcg Tablet, 50 MCG PO BEFORE BREAKFAST, #30 TAB 06/15/19 Hydrocodone/Acetaminophen ([place] 5-325 Tablet) 1 Each Tablet, 1 EACH PO Q8H, TAB 06/15/19 Gabapentin* (Gabapentin*) 100 Mg Capsule, 100 MG PO BID, #90 CAP 06/15/19 Metoprolol Succinate* (Toprol XL*) 25 Mg Tab.sr.24h, 25 MG PO DAILY, #30 TAB 06/15/19 Discontinued Reported Medications Metoprolol Succinate* (Toprol XL*) 25 Mg Tab.sr.24h, 25 MG PO DAILY, #30 TAB 03/04/17 Medications Current Medications Dorzolamide HCl (Trusopt) 1 drop TID BOTH EYES Last administered on 06/19/19at 08:18; Admin Dose 1 DROP; Start 06/15/19 at 21:00 Levothyroxine Sodium (Synthroid) 50 mcg DAILY@06 PO Last administered on 06/19/19at 05:40; Admin Dose 50 MCG; Start 06/16/19 at 06:00 Metformin HCl (Glucophage) 1,000 mg WITH BREAKFAST DINNE PO Last administered on 06/19/19at 08:17; Admin Dose 1,000 MG; Start 06/15/19 at 18:00 Metoprolol Succinate (Toprol Xl) 25 mg DAILY PO Last administered on 06/18/19at 08:15; Admin Dose 25 MG; Start 06/16/19 at 09:00 Miscellaneous Information 1 ea NOTE XX ; Start 06/15/19 at 16:30 Glucose (Glutose) 15 gm Q15M PRN PO DECREASED GLUCOSE; Start 06/15/19 at 16:30 Glucose (Glutose) 22.5 gm Q15M PRN PO DECREASED GLUCOSE; Start 06/15/19 at 16:30 Dextrose (D50w Syringe) 25 ml Q15M PRN IV DECREASED GLUCOSE; Start 06/15/19 at 16:30 Dextrose (D50w Syringe) 50 ml Q15M PRN IV DECREASED GLUCOSE; Start 06/15/19 at 16:30 Glucagon (Glucagen) 1 mg Q15M PRN IM DECREASED GLUCOSE; Start 06/15/19 at 16:30 Glucose (Glutose) 15 gm Q15M PRN BUCCAL DECREASED GLUCOSE; Start 06/15/19 at 16:30 Aspirin (Halfprin) 81 mg DAILY PO Last administered on 06/19/19at 08:14; Admin Dose 81 MG; Start 06/16/19 at 09:00 Diagnostic Test (Pha) (Accu-Chek) 1 ea 02 XX ; Start 06/16/19 at 02:00 Insulin Aspart (Novolog Insulin Pen) NOVOLOG *MILD* ALGORITHM WITH MEALS BEDTIME SC ; Start 06/15/19 at 21:00 Atorvastatin Calcium (Lipitor) 80 mg HS PO Last administered on 06/18/19at 20:25; Admin Dose 80 MG; Start 06/16/19 at 21:00 Hydralazine HCl (Apresoline) 10 mg Q4H PRN IV SBP >170; Start 06/16/19 at 12:30 Acetaminophen (Tylenol Tab) 650 mg Q4H PRN PO MILD PAIN(1-3)OR ELEVATED TEMP Last administered on 06/19/19at 08:15; Admin Dose 650 MG; Start 06/17/19 at 04:00 Diphenhydramine HCl (Benadryl) 25 mg Q6H PRN PO ITCHING Last administered on 06/17/19at 18:07; Admin Dose 25 MG; Start 06/17/19 at 18:00 Nitroglycerin (Nitroglycerin (Sl Tab) 0.4 Mg) 1 tab Q5M PRN SL ANGINA; Start 06/18/19 at 19:30 Assessment/Plan Hospital Course (Demo Recall) 1. Chest pain, assess for acute coronary syndrome, somewhat vague description described as a cramping sensation with a cath no significant obstructive disease in 2017.no CP - con't med rx - con't to keep euvolemic. 2. Hypertension, mildly elevated - BP well maintained now - well maintained now. 3. Dyslipidemia - RX as needed. 4. CVA, acute with ongoing left upper extremity and lower extremity weakness.-seen by HEad CT as well, strength improving in RUE/RLE - now with PT - neurology follows. 5. Hypothyroidism - replace as needed 6. Diabetes mellitus - on meds, keep euglycemic GILBERTO VALLES MD Jun 19, 2019 11:08
--- NOTE | 2019-06-19 11:32 | PN ---
Date/Time of Note Date/Time of Note DATE: 06/19/19 TIME: 11:22 Assessment/Plan VTE Prophylaxis Risk score (from [facility] [place])>0 risk: 3 SCD applied (from [facility] [place]): Yes SCD contraindicated: other Pharmacological prophylaxis: other Pharm contraindication: other Lines/Catheters IV [facility]ter Type (from [facility] Saline Lock Urinary Cath still in place: No Assessment/Plan Assessment/Plan -CVA (cerebral vascular accident). Start aspirin. Will obtain swallow e valuation, PT OT. Obtain lipid panel. Dr. Bailey is asked to see patient in neurology consultation. -Chest pain, will obtain cardiac enzymes every 8 hours x3. 2D echo. Dr. Aggarwal is asked to see patient in cardiology consultation. -Cardiomyopathy -Diabetes mellitus type 2, continue metformin and NovoLog per mild algorithm sliding scale, will obtain hemoglobin A1c. -Hypertension, continue metoprolol. -Hypothyroidism, will obtain TSH, continue levothyroxine. Further recommendations based on clinical course. Plan of care discussed with Dr. Stevenson. Result Diagram: 06/19/19 0451 06/19/19 0451 Results 24hrs Laboratory Tests Test 06/18/19 11:47 06/18/19 17:43 06/18/19 20:27 06/19/19 00:07 Bedside Glucose 90 93 95 Troponin I < 0.012 Test 06/19/19 04:51 06/19/19 08:13 White Blood Count 10.5 Red Blood Count 4.82 Hemoglobin 12.6 Hematocrit 39.4 Mean Corpuscular 81.7 L Volume Mean Corpuscular 26.1 L Hemoglobin Mean Corpuscular 32.0 Hemoglobin Concent Red Cell 14.3 Distribution Width Platelet Count 447 H Mean Platelet Volume 9.3 Immature 0.300 Granulocytes % Neutrophils % 62.0 Lymphocytes % 27.9 Monocytes % 6.4 Eosinophils % 2.6 Basophils % 0.8 Nucleated Red Blood 0.0 Cells % Immature 0.030 Granulocytes # Neutrophils # 6.5 Lymphocytes # 2.9 Monocytes # 0.7 Eosinophils # 0.3 Basophils # 0.1 Nucleated Red Blood 0.0 Cells # Sodium Level 140 Potassium Level 3.7 Chloride Level 104 Carbon Dioxide Level 28 Anion Gap 8 Blood Urea Nitrogen 12 Creatinine 0.66 Est Glomerular > 60 Filtrat Rate mL/min Glucose Level 105 Calcium Level 9.4 Troponin I < 0.012 Bedside Glucose 125 Subjective 24 Hr Interval Summary Free Text/Dictation C/O chest pain last night; troponin x 3 negative denies chest pain c/o headache; took Tylenol; feels better dw staff ENT: no complaints Respiratory: no complaints Cardiovascular: no complaints Gastrointestinal: no complaints Genitourinary: no complaints Musculoskeletal: no complaints Skin: no complaints Neurologic: focal-weakness, headache Endocrine: no complaints Psychological: nl mood/affect Immunologic: no complaints Exam/Review of Systems Exam Vitals Vital Signs Date Temp Pulse Resp B/P (MAP) Pulse Ox O2 O2 Flow FiO2 Time Delivery Rate 06/19/19 97.9 70 20 121/68 100 Nasal 07:20 (85) Cannula 06/15/19 2 10:51 Intake and Output 06/18/19 06/18/19 06/19/19 1515:00 23:00 07:00 IntakeIntake Total 480 ml 240 ml 440 ml BalanceBalance 480 ml 240 ml 440 ml Constitutional: alert, well developed Results Results 24hrs Laboratory Tests Test 06/18/19 11:47 06/18/19 17:43 06/18/19 20:27 06/19/19 00:07 Bedside Glucose 90 93 95 Troponin I < 0.012 Test 06/19/19 04:51 06/19/19 08:13 White Blood Count 10.5 Red Blood Count 4.82 Hemoglobin 12.6 Hematocrit 39.4 Mean Corpuscular 81.7 L Volume Mean Corpuscular 26.1 L Hemoglobin Mean Corpuscular 32.0 Hemoglobin Concent Red Cell 14.3 Distribution Width Platelet Count 447 H Mean Platelet Volume 9.3 Immature 0.300 Granulocytes % Neutrophils % 62.0 Lymphocytes % 27.9 Monocytes % 6.4 Eosinophils % 2.6 Basophils % 0.8 Nucleated Red Blood 0.0 Cells % Immature 0.030 Granulocytes # Neutrophils # 6.5 Lymphocytes # 2.9 Monocytes # 0.7 Eosinophils # 0.3 Basophils # 0.1 Nucleated Red Blood 0.0 Cells # Sodium Level 140 Potassium Level 3.7 Chloride Level 104 Carbon Dioxide Level 28 Anion Gap 8 Blood Urea Nitrogen 12 Creatinine 0.66 Est Glomerular > 60 Filtrat Rate mL/min Glucose Level 105 Calcium Level 9.4 Troponin I < 0.012 Bedside Glucose 125 Medications Medication Current Medications Dorzolamide HCl (Trusopt) 1 drop TID BOTH EYES Last administered on 06/19/19at 08:18; Admin Dose 1 DROP; Start 06/15/19 at 21:00 Levothyroxine Sodium (Synthroid) 50 mcg DAILY@06 PO Last administered on 06/19/19at 05:40; Admin Dose 50 MCG; Start 06/16/19 at 06:00 Metformin HCl (Glucophage) 1,000 mg WITH BREAKFAST DINNE PO Last administered on 06/19/19at 08:17; Admin Dose 1,000 MG; Start 06/15/19 at 18:00 Metoprolol Succinate (Toprol Xl) 25 mg DAILY PO Last administered on 06/18/19at 08:15; Admin Dose 25 MG; Start 06/16/19 at 09:00 Miscellaneous Information 1 ea NOTE XX ; Start 06/15/19 at 16:30 Glucose (Glutose) 15 gm Q15M PRN PO DECREASED GLUCOSE; Start 06/15/19 at 16:30 Glucose (Glutose) 22.5 gm Q15M PRN PO DECREASED GLUCOSE; Start 06/15/19 at 16:30 Dextrose (D50w Syringe) 25 ml Q15M PRN IV DECREASED GLUCOSE; Start 06/15/19 at 16:30 Dextrose (D50w Syringe) 50 ml Q15M PRN IV DECREASED GLUCOSE; Start 06/15/19 at 16:30 Glucagon (Glucagen) 1 mg Q15M PRN IM DECREASED GLUCOSE; Start 06/15/19 at 16:30 Glucose (Glutose) 15 gm Q15M PRN BUCCAL DECREASED GLUCOSE; Start 06/15/19 at 16:30 Aspirin (Halfprin) 81 mg DAILY PO Last administered on 06/19/19at 08:14; Admin Dose 81 MG; Start 06/16/19 at 09:00 Diagnostic Test (Pha) (Accu-Chek) 1 ea 02 XX ; Start 06/16/19 at 02:00 Insulin Aspart (Novolog Insulin Pen) NOVOLOG *MILD* ALGORITHM WITH MEALS BEDTIME SC ; Start 06/15/19 at 21:00 Atorvastatin Calcium (Lipitor) 80 mg HS PO Last administered on 06/18/19at 20:25; Admin Dose 80 MG; Start 06/16/19 at 21:00 Hydralazine HCl (Apresoline) 10 mg Q4H PRN IV SBP >170; Start 06/16/19 at 12:30 Acetaminophen (Tylenol Tab) 650 mg Q4H PRN PO MILD PAIN(1-3)OR ELEVATED TEMP Last administered on 06/19/19at 08:15; Admin Dose 650 MG; Start 06/17/19 at 04:00 Diphenhydramine HCl (Benadryl) 25 mg Q6H PRN PO ITCHING Last administered on 06/17/19at 18:07; Admin Dose 25 MG; Start 06/17/19 at 18:00 Nitroglycerin (Nitroglycerin (Sl Tab) 0.4 Mg) 1 tab Q5M PRN SL ANGINA; Start 06/18/19 at 19:30 LULU PARRISH Jun 19, 2019 11:32
[2019-06-19 11:37] VITALS: BP 119/75; PULSE 69; RESP 20
[2019-06-19 11:42] VITALS: BP 103/52; PULSE 72; RESP 20
[2019-06-19 15:53] VITALS: BP 135/82; RESP 20
[2019-06-19 20:00] VITALS: BP 125/74; PULSE 86; RESP 18
[2019-06-19] MEDS: ATORVASTATIN 80 MG TAB PO SCH (20:26)
[2019-06-19] MEDS ORDERED: ONDANSETRON 4 MG INJ IV PRN (21:30)
[2019-06-20] VITALS: BP 133/69; PULSE 84; RESP 19
[2019-06-20] MEDS: ACCU-CHEK XX SCH (02:00)
[2019-06-20 04:00] VITALS: BP 131/77; PULSE 78; RESP 19
[2019-06-20] MEDS: LEVOTHYROXINE 50 MCG TAB PO SCH (05:31)
[2019-06-20] MEDS: INSULIN ASPART [NOVOLOG] 3 ML PEN SC SCH ×4 (08:00→20:10)
[2019-06-20 08:01] VITALS: BP 130/80; PULSE 78
[2019-06-20] MEDS: DORZOLAMIDE 2% 10 ML OPH BOTH EYES SCH ×3 (08:31→20:08)
[2019-06-20] MEDS: ASPIRIN (EC) 81 MG TAB PO SCH (08:31)
[2019-06-20] MEDS: ACETAMINOPHEN 325 MG TAB PO PRN (08:31)
[2019-06-20] MEDS: METOPROLOL (XL) 25 MG TAB PO SCH (08:32)
[2019-06-20] MEDS: metFORMIN 500 MG TAB PO SCH ×2 (08:42→17:47)
[2019-06-20] MEDS: MECLIZINE 12.5 MG TAB PO SCH ×3 (09:27→20:08)
--- NOTE | 2019-06-20 10:15 | CONS ---
Assessment/Plan Assessment/Plan Assessment/Plan (Recall) 58 F c/ multiple cerebrovascular risk factors, who presents for evaluation of left hemiparesis x 5 days. MRI brain confirmed R hemispheric, predominantly MCA, infarctions... MRA head was notable for R M2 stenosis; MRA neck is unrevealing. Echo is unrevealing LDL 158 A1C 6.5 RPR neg P: Repeat head CT for surveillance Add low dose meclizine tid for now Cont asa/lipitor daily for now PT/OT/ST as tolerated BP control and other medical management per primary Will follow clinically Consultation Date/Type/Reason Admit Date/Time Jun 15, 2019 at 12:19 Type of Consult Neurology Reason for Consultation stroke Requesting Provider: LIBIA JACOBSON Date/Time of Note DATE: 06/20/19 TIME: 10:14 24 HR Interval Summary Free Text/Dictation noted vertigo w/ nausea and vomiting Exam/Review of Systems Exam Vitals Vital Signs Date Temp Pulse Resp B/P (MAP) Pulse Ox O2 O2 Flow FiO2 Time Delivery Rate 06/20/19 98.0 78 130/80 94 08:01 (97) 06/20/19 19 04:00 06/19/19 Room Air 20:00 Intake and Output 06/19/19 06/19/19 06/20/19 1515:00 23:00 07:00 IntakeIntake Total 240 ml 580 ml 100 ml BalanceBalance 240 ml 580 ml 100 ml Results Result Diagram: 06/19/19 0451 06/19/19 0451 Results 24hrs Laboratory Tests Test 06/19/19 12:07 06/19/19 12:16 06/19/19 17:13 06/19/19 20:30 Troponin I < 0.012 Bedside Glucose 92 107 115 Test 06/20/19 07:45 Bedside Glucose 105 Medications Medication Current Medications Dorzolamide HCl (Trusopt) 1 drop TID BOTH EYES Last administered on 06/20/19at 08:31; Admin Dose 1 DROP; Start 06/15/19 at 21:00 Levothyroxine Sodium (Synthroid) 50 mcg DAILY@06 PO Last administered on 06/20/19at 05:31; Admin Dose 50 MCG; Start 06/16/19 at 06:00 Metformin HCl (Glucophage) 1,000 mg WITH BREAKFAST DINNE PO Last administered on 06/20/19at 08:42; Admin Dose 1,000 MG; Start 06/15/19 at 18:00 Metoprolol Succinate (Toprol Xl) 25 mg DAILY PO Last administered on 06/20/19at 08:32; Admin Dose 25 MG; Start 06/16/19 at 09:00 Miscellaneous Information 1 ea NOTE XX ; Start 06/15/19 at 16:30 Glucose (Glutose) 15 gm Q15M PRN PO DECREASED GLUCOSE; Start 06/15/19 at 16:30 Glucose (Glutose) 22.5 gm Q15M PRN PO DECREASED GLUCOSE; Start 06/15/19 at 16:30 Dextrose (D50w Syringe) 25 ml Q15M PRN IV DECREASED GLUCOSE; Start 06/15/19 at 16:30 Dextrose (D50w Syringe) 50 ml Q15M PRN IV DECREASED GLUCOSE; Start 06/15/19 at 16:30 Glucagon (Glucagen) 1 mg Q15M PRN IM DECREASED GLUCOSE; Start 06/15/19 at 16:30 Glucose (Glutose) 15 gm Q15M PRN BUCCAL DECREASED GLUCOSE; Start 06/15/19 at 16:30 Aspirin (Halfprin) 81 mg DAILY PO Last administered on 06/20/19 08:31; Admin Dose 81 MG; Start 06/16/19 at 09:00 Diagnostic Test (Pha) (Accu-Chek) 1 ea 02 XX ; Start 06/16/19 at 02:00 Insulin Aspart (Novolog Insulin Pen) NOVOLOG *MILD* ALGORITHM WITH MEALS BEDTIME SC ; Start 06/15/19 at 21:00 Atorvastatin Calcium (Lipitor) 80 mg HS PO Last administered on 06/19/19at 20:26; Admin Dose 80 MG; Start 06/16/19 at 21:00 Hydralazine HCl (Apresoline) 10 mg Q4H PRN IV SBP >170; Start 06/16/19 at 12:30 Acetaminophen (Tylenol Tab) 650 mg Q4H PRN PO MILD PAIN(1-3)OR ELEVATED TEMP Last administered on 06/20/19at 08:31; Admin Dose 650 MG; Start 06/17/19 at 04:00 Diphenhydramine HCl (Benadryl) 25 mg Q6H PRN PO ITCHING Last administered on 06/17/19at 18:07; Admin Dose 25 MG; Start 06/17/19 at 18:00 Nitroglycerin (Nitroglycerin (Sl Tab) 0.4 Mg) 1 tab Q5M PRN SL ANGINA; Start 06/18/19 at 19:30 Ondansetron HCl (Zofran Inj) 4 mg Q4H PRN IV NAUSEA AND/OR VOMITING; Start 06/19/19 at 21:30 Meclizine HCl (Antivert) 12.5 mg TID PO Last administered on 06/20/19at 09:27; Admin Dose 12.5 MG; Start 06/20/19 at 09:00 ALYCIA YUNG Jun 20, 2019 10:15
--- NOTE | 2019-06-20 11:06 | CONS ---
Assessment/Plan Assessment/Plan Hospital Course (Demo Recall) IMPRESSION: 1. Chest pain, assess for acute coronary syndrome, somewhat vague description described as a cramping sensation with a cath no significant obstructive disease in 2017.-neg trop x 3 2. Hypertension-reasonable 3. Dyslipidemia. 4. CVA, acute with ongoing left upper extremity and lower extremity weakness.- seen by HEad CT as well, strength improving in RUE/RLE 5. Hypothyroidism. 6. Diabetes mellitus. Recc: -Tele -Continue asa/statin -Contineu toprol xl at current dose for now -ongoing neuro eval with improving RUE/RLE strength Consultation Date/Type/Reason Admit Date/Time Jun 15, 2019 at 12:19 Initial Consult Date 06/15/19 Type of Consult Cardiology Reason for Consultation chest pain Requesting Provider: LIBIA JACOBSON Date/Time of Note DATE: 06/20/19 TIME: 11:04 Exam/Review of Systems Vital Signs Vitals Vital Signs Date Temp Pulse Resp B/P (MAP) Pulse Ox O2 O2 Flow FiO2 Time Delivery Rate 06/20/19 98.0 78 130/80 94 08:01 (97) 06/20/19 19 04:00 06/19/19 Room Air 20:00 Intake and Output 06/19/19 06/19/19 06/20/19 1515:00 23:00 07:00 IntakeIntake Total 240 ml 580 ml 100 ml BalanceBalance 240 ml 580 ml 100 ml Exam Exam Review of Systems: CONSTITUTIONAL: No fevers, chills. PULMONARY: No sob CARDIOVASCULAR: No chest pain/palpitations GASTROINTESTINAL: No nausea/vomiting. GENITOURINARY: No hematuria/dysuria. MUSCULOSKELETAL: No myagias/arthalgias. PSYCHIATRIC: The patient denies depression. NEUROLOGIC: No weakness Constitutional: alert, oriented Psych: no complaints Head: normocephalic ENMT: mucosa pink and moist Neck: supple, jvd (9 cm water) Respiratory: clear to auscultation Cardiovascular: regular rate and rhythm Gastrointestinal: soft, non-tender Musculoskeletal: muscle weakness (L sidede UE/LE) Extremities: edema (none) Labs Result Diagram: 06/19/19 0451 06/19/19 0451 Results 24hrs Laboratory Tests Test 06/19/19 12:07 06/19/19 12:16 06/19/19 17:13 06/19/19 20:30 Troponin I < 0.012 Bedside Glucose 92 107 115 Test 06/20/19 07:45 Bedside Glucose 105 Medications Medications Current Medications Dorzolamide HCl (Trusopt) 1 drop TID BOTH EYES Last administered on 06/20/19at 08:31; Admin Dose 1 DROP; Start 06/15/19 at 21:00 Levothyroxine Sodium (Synthroid) 50 mcg DAILY@06 PO Last administered on 06/20/19at 05:31; Admin Dose 50 MCG; Start 06/16/19 at 06:00 Metformin HCl (Glucophage) 1,000 mg WITH BREAKFAST DINNE PO Last administered on 06/20/19at 08:42; Admin Dose 1,000 MG; Start 06/15/19 at 18:00 Metoprolol Succinate (Toprol Xl) 25 mg DAILY PO Last administered on 06/20/19at 08:32; Admin Dose 25 MG; Start 06/16/19 at 09:00 Miscellaneous Information 1 ea NOTE XX ; Start 06/15/19 at 16:30 Glucose (Glutose) 15 gm Q15M PRN PO DECREASED GLUCOSE; Start 06/15/19 at 16:30 Glucose (Glutose) 22.5 gm Q15M PRN PO DECREASED GLUCOSE; Start 06/15/19 at 16:30 Dextrose (D50w Syringe) 25 ml Q15M PRN IV DECREASED GLUCOSE; Start 06/15/19 at 16:30 Dextrose (D50w Syringe) 50 ml Q15M PRN IV DECREASED GLUCOSE; Start 06/15/19 at 16:30 Glucagon (Glucagen) 1 mg Q15M PRN IM DECREASED GLUCOSE; Start 06/15/19 at 16:30 Glucose (Glutose) 15 gm Q15M PRN BUCCAL DECREASED GLUCOSE; Start 06/15/19 at 16:30 Aspirin (Halfprin) 81 mg DAILY PO Last administered on 06/20/19at 08:31; Admin D ose 81 MG; Start 06/16/19 at 09:00 Diagnostic Test (Pha) (Accu-Chek) 1 ea 02 XX ; Start 06/16/19 at 02:00 Insulin Aspart (Novolog Insulin Pen) NOVOLOG *MILD* ALGORITHM WITH MEALS BEDTIME SC ; Start 06/15/19 at 21:00 Atorvastatin Calcium (Lipitor) 80 mg HS PO Last administered on 06/19/19at 20:26; Admin Dose 80 MG; Start 06/16/19 at 21:00 Hydralazine HCl (Apresoline) 10 mg Q4H PRN IV SBP >170; Start 06/16/19 at 12:30 Acetaminophen (Tylenol Tab) 650 mg Q4H PRN PO MILD PAIN(1-3)OR ELEVATED TEMP Last administered on 06/20/19at 08:31; Admin Dose 650 MG; Start 06/17/19 at 04:00 Diphenhydramine HCl (Benadryl) 25 mg Q6H PRN PO ITCHING Last administered on 06/17/19at 18:07; Admin Dose 25 MG; Start 06/17/19 at 18:00 Nitroglycerin (Nitroglycerin (Sl Tab) 0.4 Mg) 1 tab Q5M PRN SL ANGINA; Start 06/18/19 at 19:30 Ondansetron HCl (Zofran Inj) 4 mg Q4H PRN IV NAUSEA AND/OR VOMITING; Start 06/19/19 at 21:30 Meclizine HCl (Antivert) 12.5 mg TID PO Last administered on 06/20/19at 09:27; Admin Dose 12.5 MG; Start 06/20/19 at 09:00 HILARIA WINSTON Jun 20, 2019 11:06
[2019-06-20 12:11] VITALS: BP 152/80; PULSE 74; RESP 19
[2019-06-20 15:06] VITALS: BP 129/75; PULSE 77; RESP 19
--- NOTE | 2019-06-20 17:02 | PN ---
Date/Time of Note Date/Time of Note DATE: 06/20/19 TIME: 16:59 Assessment/Plan VTE Prophylaxis Risk score (from Ns)>0 risk: 6 SCD applied (from Ns): Yes Pharmacological prophylaxis: other Lines/Catheters IV [facility] Type [facility]from [facility] [place] Urinary Cath still in place: No Assessment/Plan Hospital Course Patient's complaints of nausea and dizziness, started on meclizine, repeat CT of the brain with no evidence for hemorrhagic transformation of the evolving acute to subacute ischemic right posterior frontal, parietal and occipital lobe infarcts. Assessment/Plan -CVA (cerebral vascular accident). Continue aspirin and Lipitor. Continue PT OT. Dr. Bailey is following in neurology consultation. -Chest pain, cardiac enzymes are negative x3. 2D echo with preserved ejection fraction. Dr. Aggarwal is following in cardiology consultation. -Cardiomyopathy -Diabetes mellitus type 2 with hemoglobin A1c of 6.5, continue metformin and NovoLog per mild algorithm sliding scale. -Hypertension, continue metoprolol. -Hypothyroidism, continue levothyroxine. -Hyperlipidemia, continue Lipitor. Further recommendations based on clinical course. Plan of care discussed with Dr. Stevenson. Result Diagram: 06/19/19 0451 06/19/19 0451 Results 24hrs Laboratory Tests Test 06/19/19 17:13 06/19/19 20:30 06/20/19 07:45 06/20/19 12:00 Bedside Glucose 107 115 105 99 Exam/Review of Systems Exam Vitals Vital Signs Date Temp Pulse Resp B/P (MAP) Pulse Ox O2 O2 Flow FiO2 Time Delivery Rate 06/20/19 98.7 77 19 129/75 95 15:06 (93) 06/19/19 Room Air 20:00 Intake and Output 06/19/19 06/19/19 06/20/19 1515:00 23:00 07:00 IntakeIntake Total 240 ml 580 ml 100 ml BalanceBalance 240 ml 580 ml 100 ml Exam Constitutional: alert, oriented Respiratory: clear to auscultation Cardiovascular: regular rate and rhythm Gastrointestinal: soft, non-tender Musculoskeletal: nl extremities to inspection Extremities: normal pulses Neurological: other (Left-sided weakness) Results Results 24hrs Laboratory Tests Test 06/19/19 17:13 06/19/19 20:30 06/20/19 07:45 06/20/19 12:00 Bedside Glucose 107 115 105 99 Medications Medication Current Medications Dorzolamide HCl (Trusopt) 1 drop TID BOTH EYES Last administered on 06/20/19at 13:27; Admin Dose 1 DROP; Start 06/15/19 at 21:00 Levothyroxine Sodium (Synthroid) 50 mcg DAILY@06 PO Last administered on 06/20/19 05:31; Admin Dose 50 MCG; Start 06/16/19 at 06:00 Metformin HCl (Glucophage) 1,000 mg WITH BREAKFAST DINNE PO Last administered on 06/20/19at 08:42; Admin Dose 1,000 MG; Start 06/15/19 at 18:00 Metoprolol Succinate (Toprol Xl) 25 mg DAILY PO Last administered on 06/20/19at 08:32; Admin Dose 25 MG; Start 06/16/19 at 09:00 Miscellaneous Information 1 ea NOTE XX ; Start 06/15/19 at 16:30 Glucose (Glutose) 15 gm Q15M PRN PO DECREASED GLUCOSE; Start 06/15/19 at 16:30 Glucose (Glutose) 22.5 gm Q15M PRN PO DECREASED GLUCOSE; Start 06/15/19 at 16:30 Dextrose (D50w Syringe) 25 ml Q15M PRN IV DECREASED GLUCOSE; Start 06/15/19 at 16:30 Dextrose (D50w Syringe) 50 ml Q15M PRN IV DECREASED GLUCOSE; Start 06/15/19 at 16:30 Glucagon (Glucagen) 1 mg Q15M PRN IM DECREASED GLUCOSE; Start 06/15/19 at 16:30 Glucose (Glutose) 15 gm Q15M PRN BUCCAL DECREASED GLUCOSE; Start 06/15/19 at 16:30 Aspirin (Halfprin) 81 mg DAILY PO Last administered on 06/20/19at 08:31; Admin Dose 81 MG; Start 06/16/19 at 09:00 Diagnostic Test (Pha) (Accu-Chek) 1 ea 02 XX ; Start 06/16/19 at 02:00 Insulin Aspart (Novolog Insulin Pen) NOVOLOG *MILD* ALGORITHM WITH MEALS BEDTIME SC ; Start 06/15/19 at 21:00 Atorvastatin Calcium (Lipitor) 80 mg HS PO Last administered on 06/19/19at 20:26; Admin Dose 80 MG; Start 06/16/19 at 21:00 Hydralazine HCl (Apresoline) 10 mg Q4H PRN IV SBP >170; Start 06/16/19 at 12:30 Acetaminophen (Tylenol Tab) 650 mg Q4H PRN PO MILD PAIN(1-3)OR ELEVATED TEMP Last administered on 06/20/19at 08:31; Admin Dose 650 MG; Start 06/17/19 at 04:00 Diphenhydramine HCl (Benadryl) 25 mg Q6H PRN PO ITCHING Last administered on 06/17/19at 18:07; Admin Dose 25 MG; Start 06/17/19 at 18:00 Nitroglycerin (Nitroglycerin (Sl Tab) 0.4 Mg) 1 tab Q5M PRN SL ANGINA; Start 06/18/19 at 19:30 Ondansetron HCl (Zofran Inj) 4 mg Q4H PRN IV NAUSEA AND/OR VOMITING; Start 06/19/19 at 21:30 Meclizine HCl (Antivert) 12.5 mg TID PO Last administered on 06/20/19at 13:27; Admin Dose 12.5 MG; Start 06/20/19 at 09:00 LIBIA JACOBSON Jun 20, 2019 17:02
[2019-06-20 20:04] VITALS: BP 118/62; PULSE 83; RESP 18
[2019-06-20] MEDS: ATORVASTATIN 80 MG TAB PO SCH (20:08)
[2019-06-21 00:18] VITALS: BP 110/57; PULSE 77; RESP 18
[2019-06-21] MEDS: ACCU-CHEK XX SCH (02:00)
[2019-06-21 04:13] VITALS: BP 109/62; PULSE 75; RESP 18
[2019-06-21] MEDS: LEVOTHYROXINE 50 MCG TAB PO SCH (05:50)
[2019-06-21 07:22] VITALS: BP 115/55; PULSE 75; RESP 19
[2019-06-21] MEDS: INSULIN ASPART [NOVOLOG] 3 ML PEN SC SCH ×4 (07:45→20:24)
[2019-06-21] MEDS: MECLIZINE 12.5 MG TAB PO SCH ×3 (08:08→20:22)
[2019-06-21] MEDS: DORZOLAMIDE 2% 10 ML OPH BOTH EYES SCH ×3 (08:08→20:22)
[2019-06-21] MEDS: metFORMIN 500 MG TAB PO SCH ×2 (08:08→17:26)
[2019-06-21] MEDS: ASPIRIN (EC) 81 MG TAB PO SCH (08:08)
[2019-06-21] MEDS: METOPROLOL (XL) 25 MG TAB PO SCH (08:08)
--- NOTE | 2019-06-21 08:42 | CONS ---
Consult Date/Type/Reason Admit Date/Time Jun 15, 2019 at 12:19 Initial Consult Date Requesting Provider: LIBIA JACOBSON Date/Time of Note DATE: 06/21/19 TIME: 08:40 Subjective NO acute events - pt comfortable overall - ambulatory to bathroom - no CP now. ROS: No fever, no chills, no nausea, no vomiting, no diarrhea/constipation No recent weight changes No chest pain, no PND, no orthopnea - mild SOB + dizzyness No thirst, no heat or cold intolerance Objective Vitals Vital Signs Date Temp Pulse Resp B/P (MAP) Pulse Ox O2 O2 Flow FiO2 Time Delivery Rate 06/21/19 97.9 75 19 115/55 95 07:22 (75) 06/21/19 Room Air 04:13 Intake and Output 06/20/19 06/20/19 06/21/19 1515:00 23:00 07:00 IntakeIntake Total 600 ml 400 ml 150 ml OutputOutput Total 3 ml BalanceBalance 597 ml 400 ml 150 ml Exam General: WN/WD/NAD, AOx 3 HEENT: Unicetric/atraumatic/EOMI ( follow commands) NECK: JVD elevated, no thyromegaly Lymph: no lymphadenopathy HEART: regular with no S3, II/ systolic murmur at apex LUNGS: Coarse sounds ABD: soft, NT, ND, +BS : Intact Neuro: post CVA SKIN: chronic changes EXT: trace edema Results/Medications Result Diagram: 06/19/19 0451 06/19/19 0451 Results 24 hrs Laboratory Tests Test 06/20/19 12:00 06/20/19 17:21 06/20/19 20:10 06/21/19 07:45 Bedside Glucose 99 91 116 95 Home Meds Reported Medications Dorzolamide Hcl* (Dorzolamide Hcl*) 10 Ml Drops, 1 DROP BOTH EYES TID, #1 EA 06/15/19 Lisinopril* (Lisinopril*) 10 Mg Tablet, 10 MG PO DAILY, #30 TAB 06/15/19 Metformin Hcl* (Metformin Hcl*) 1,000 Mg Tablet, 1000 MG PO WITH BREAKFAST DINNE, #60 TAB 06/15/19 Levothyroxine Sodium* (Levothyroxine Sodium*) 50 Mcg Tablet, 50 MCG PO BEFORE BREAKFAST, #30 TAB 06/15/19 Hydrocodone/Acetaminophen ([place] 5-325 Tablet) 1 Each Tablet, 1 EACH PO Q8H, TAB 06/15/19 Gabapentin* (Gabapentin*) 100 Mg Capsule, 100 MG PO BID, #90 CAP 06/15/19 Metoprolol Succinate* (Toprol XL*) 25 Mg Tab.sr.24h, 25 MG PO DAILY, #30 TAB 06/15/19 Discontinued Reported Medications Metoprolol Succinate* (Toprol XL*) 25 Mg Tab.sr.24h, 25 MG PO DAILY, #30 TAB 03/04/17 Medications Current Medications Dorzolamide HCl (Trusopt) 1 drop TID BOTH EYES Last administered on 06/21/19at 08:08; Admin Dose 1 DROP; Start 06/15/19 at 21:00 Levothyroxine Sodium (Synthroid) 50 mcg DAILY@06 PO Last administered on 06/21/19at 05:50; Admin Dose 50 MCG; Start 06/16/19 at 06:00 Metformin HCl (Glucophage) 1,000 mg WITH BREAKFAST DINNE PO Last administered on 06/21/19at 08:08; Admin Dose 1,000 MG; Start 06/15/19 at 18:00 Metoprolol Succinate (Toprol Xl) 25 mg DAILY PO Last administered on 06/21/19at 08:08; Admin Dose 25 MG; Start 06/16/19 at 09:00 Miscellaneous Information 1 ea NOTE XX ; Start 06/15/19 at 16:30 Glucose (Glutose) 15 gm Q15M PRN PO DECREASED GLUCOSE; Start 06/15/19 at 16:30 Glucose (Glutose) 22.5 gm Q15M PRN PO DECREASED GLUCOSE; Start 06/15/19 at 16:30 Dextrose (D50w Syringe) 25 ml Q15M PRN IV DECREASED GLUCOSE; Start 06/15/19 at 16:30 Dextrose (D50w Syringe) 50 ml Q15M PRN IV DECREASED GLUCOSE; Start 06/15/19 at 16:30 Glucagon (Glucagen) 1 mg Q15M PRN IM DECREASED GLUCOSE; Start 06/15/19 at 16:30 Glucose (Glutose) 15 gm Q15M PRN BUCCAL DECREASED GLUCOSE; Start 06/15/19 at 16:30 Aspirin (Halfprin) 81 mg DAILY PO Last administered on 06/21/19at 08:08; Admin Dose 81 MG; Start 06/16/19 at 09:00 Diagnostic Test (Pha) (Accu-Chek) 1 ea 02 XX ; Start 06/16/19 at 02:00 Insulin Aspart (Novolog Insulin Pen) NOVOLOG *MILD* ALGORITHM WITH MEALS BEDTIME SC ; Start 06/15/19 at 21:00 Atorvastatin Calcium (Lipitor) 80 mg HS PO Last administered on 06/20/19at 20:08; Admin Dose 80 MG; Start 06/16/19 at 21:00 Hydralazine HCl (Apresoline) 10 mg Q4H PRN IV SBP >170; Start 06/16/19 at 12:30 Acetaminophen (Tylenol Tab) 650 mg Q4H PRN PO MILD PAIN(1-3)OR ELEVATED TEMP Last administered on 06/20/19at 08:31; Admin Dose 650 MG; Start 06/17/19 at 04:00 Diphenhydramine HCl (Benadryl) 25 mg Q6H PRN PO ITCHING Last administered on 06/17/19at 18:07; Admin Dose 25 MG; Start 06/17/19 at 18:00 Nitroglycerin (Nitroglycerin (Sl Tab) 0.4 Mg) 1 tab Q5M PRN SL ANGINA; Start 06/18/19 at 19:30 Ondansetron HCl (Zofran Inj) 4 mg Q4H PRN IV NAUSEA AND/OR VOMITING; Start 06/19/19 at 21:30 Meclizine HCl (Antivert) 12.5 mg TID PO Last administered on 06/21/19 08:08; Admin Dose 12.5 MG; Start 06/20/19 at 09:00 Assessment/Plan Hospital Course (Demo Recall) 1. Chest pain, assess for acute coronary syndrome, somewhat vague description described as a cramping sensation with a cath no significant obstructive disease in 2017.no CP - con't med rx - con't to keep euvolemic. No intervention planned. 2. Hypertension, mildly elevated - BP well maintained now - well maintained now. Well maintained 3. Dyslipidemia - RX as needed. 4. CVA, acute with ongoing left upper extremity and lower extremity weakness.- seen by HEad CT as well, strength improving in RUE/RLE - now with PT - neurology follows. - better clinically. 5. Hypothyroidism - replace as needed - treated. 6. Diabetes mellitus - on meds, keep euglycemic GILBERTO VALLES MD Jun 21, 2019 08:42
[2019-06-21 11:17] VITALS: BP 120/64; PULSE 72; RESP 17
[2019-06-21 15:25] VITALS: BP 142/72; PULSE 72; RESP 19
--- NOTE | 2019-06-21 16:08 | CONS ---
Assessment/Plan Assessment/Plan Assessment/Plan (Recall) 58 F c/ multiple cerebrovascular risk factors, who presents for evaluation of left hemiparesis x 5 days. MRI brain confirmed R hemispheric, predominantly MCA, infarctions... MRA head was notable for R M2 stenosis; MRA neck is unrevealing. Head CT 06/20 is w/o evidence of hemorrhage or other interval pathology.. Echo is unrevealing LDL 158 A1C 6.5 RPR neg Now w/ vertigo and nausea/vomiting, relieved by meclizine. P: Continue low dose meclizine tid for now Cont asa/lipitor daily for now PT/OT/ST as tolerated BP control and other medical management per primary Will follow clinically Consultation Date/Type/Reason Admit Date/Time Jun 15, 2019 at 12:19 Type of Consult Neurology Reason for Consultation stroke Requesting Provider: LIBIA JACOBSON Date/Time of Note DATE: 06/21/19 TIME: 16:07 24 HR Interval Summary Free Text/Dictation Continues acute care Vertigo relieved w/ meclizine Exam/Review of Systems Exam Vitals Vital Signs Date Temp Pulse Resp B/P (MAP) Pulse Ox O2 O2 Flow FiO2 Time Delivery Rate 06/21/19 98.2 72 19 142/72 95 15:25 (95) 06/21/19 Room Air 04:13 Intake and Output 06/20/19 06/20/19 06/21/19 1515:00 23:00 07:00 IntakeIntake Total 600 ml 400 ml 150 ml OutputOutput Total 3 ml BalanceBalance 597 ml 400 ml 150 ml Results Result Diagram: 06/19/19 0451 06/19/19 0451 Results 24hrs Laboratory Tests Test 06/20/19 17:21 06/20/19 20:10 06/21/19 07:45 06/21/19 11:54 Bedside Glucose 91 116 95 99 Medications Medication Current Medications Dorzolamide HCl (Trusopt) 1 drop TID BOTH EYES Last administered on 06/21/19at 12:41; Admin Dose 1 DROP; Start 06/15/19 at 21:00 Levothyroxine Sodium (Synthroid) 50 mcg DAILY@06 PO Last administered on 06/21/19at 05:50; Admin Dose 50 MCG; Start 06/16/19 at 06:00 Metformin HCl (Glucophage) 1,000 mg WITH BREAKFAST DINNE PO Last administered on 06/21/19at 08:08; Admin Dose 1,000 MG; Start 06/15/19 at 18:00 Metoprolol Succinate (Toprol Xl) 25 mg DAILY PO Last administered on 06/21/19at 08:08; Admin Dose 25 MG; Start 06/16/19 at 09:00 Miscellaneous Information 1 ea NOTE XX ; Start 06/15/19 at 16:30 Glucose (Glutose) 15 gm Q15M PRN PO DECREASED GLUCOSE; Start 06/15/19 at 16:30 Glucose (Glutose) 22.5 gm Q15M PRN PO DECREASED GLUCOSE; Start 06/15/19 at 16:30 Dextrose (D50w Syringe) 25 ml Q15M PRN IV DECREASED GLUCOSE; Start 06/15/19 at 16:30 Dextrose (D50w Syringe) 50 ml Q15M PRN IV DECREASED GLUCOSE; Start 06/15/19 at 16:30 Glucagon (Glucagen) 1 mg Q15M PRN IM DECREASED GLUCOSE; Start 06/15/19 at 16:30 Glucose (Glutose) 15 gm Q15M PRN BUCCAL DECREASED GLUCOSE; Start 06/15/19 at 16:30 Aspirin (Halfprin) 81 mg DAILY PO Last administered on 06/21/19at 08:08; Admin Dose 81 MG; Start 06/16/19 at 09:00 Diagnostic Test (Pha) (Accu-Chek) 1 ea 02 XX ; Start 06/16/19 at 02:00 Insulin Aspart (Novolog Insulin Pen) NOVOLOG *MILD* ALGORITHM WITH MEALS BEDTIME SC ; Start 06/15/19 at 21:00 Atorvastatin Calcium (Lipitor) 80 mg HS PO Last administered on 06/20/19at 20:08; Admin Dose 80 MG; Start 06/16/19 at 21:00 Hydralazine HCl (Apresoline) 10 mg Q4H PRN IV SBP >170; Start 06/16/19 at 12:30 Acetaminophen (Tylenol Tab) 650 mg Q4H PRN PO MILD PAIN(1-3)OR ELEVATED TEMP Last administered on 06/20/19at 08:31; Admin Dose 650 MG; Start 06/17/19 at 04:00 Diphenhydramine HCl (Benadryl) 25 mg Q6H PRN PO ITCHING Last administered on 06/17/19 18:07; Admin Dose 25 MG; Start 06/17/19 at 18:00 Nitroglycerin (Nitroglycerin (Sl Tab) 0.4 Mg) 1 tab Q5M PRN SL ANGINA; Start 06/18/19 at 19:30 Ondansetron HCl (Zofran Inj) 4 mg Q4H PRN IV NAUSEA AND/OR VOMITING; Start 06/19/19 at 21:30 Meclizine HCl (Antivert) 12.5 mg TID PO Last administered on 06/21/19at 12:41; Admin Dose 12.5 MG; Start 06/20/19 at 09:00 ALYCIA YUNG Jun 21, 2019 16:08
[2019-06-21 19:53] VITALS: BP 123/70; PULSE 80; RESP 18
[2019-06-21] MEDS: ATORVASTATIN 80 MG TAB PO SCH (20:22)
--- NOTE | 2019-06-21 23:19 | DS ---
Date/Time of Note Date/Time of Note DATE: 06/21/19 TIME: 23:16 Discharge Summary Admission/Discharge Info Admit Date/Time Jun 15, 2019 at 12:19 Discharge Date/Time Patient Condition: Stable Hx of Present Illness The patient is a 58-year-old female with history of hypertension, diabetes with diabetic neuropathy, hypothyroidism, nonobstructive coronary arter y disease per left cardiac catheterization by Dr. Aggarwal in February 2017. Patient presented to the emergency room due to left-sided dense weakness and numbness in the face and upper and lower extremity onset 4 days ago on Thursday. Patient did not seek any care because she thought it will go away. Patient is unable to move her left upper and lower extremity. Patient denies any fever denies any shortness of breath denies nausea vomiting diarrhea constipation, denies any swallowing problems or speech problems. Patient denies any trauma. Patient complains of left-sided chest pain. CT of her brain revealed evolving acute to subacute nonhemorrhagic right parietal occipital lobe infarct. Unfortunately patient is outside of the window for any thrombolytics. Patient is admitted for further evaluation and management to telemetry floor. Hospital Course Pt d/indy to ARU -Dizziness,improved, continue meclizine.repeat CT of the brain with no evidence for hemorrhagic transformation of the evolving acute to subacute ischemic right posterior frontal, parietal and occipital lobe infarcts. -CVA (cerebral vascular accident). Continue aspirin and Lipitor. Continue PT OT. Dr. Bailey is following in neurology consultation. -Chest pain, cardiac enzymes are negative x3. 2D echo with preserved ejection fraction. Dr. Aggarwal is following in cardiology consultation. -Cardiomyopathy -Diabetes mellitus type 2 with hemoglobin A1c of 6.5, continue metformin and NovoLog per mild algorithm sliding scale. -Hypertension, continue metoprolol. -Hypothyroidism, continue levothyroxine. -Hyperlipidemia, continue Lipitor. Plan of care discussed with Dr. Stevenson. Home Meds Reported Medications Dorzolamide Hcl* (Dorzolamide Hcl*) 10 Ml Drops, 1 DROP BOTH EYES TID, #1 EA 06/15/19 Lisinopril* (Lisinopril*) 10 Mg Tablet, 10 MG PO DAILY, #30 TAB 06/15/19 Metformin Hcl* (Metformin Hcl*) 1,000 Mg Tablet, 1000 MG PO WITH BREAKFAST DINNE, #60 TAB 06/15/19 Levothyroxine Sodium* (Levothyroxine Sodium*) 50 Mcg Tablet, 50 MCG PO BEFORE BREAKFAST, #30 TAB 06/15/19 Hydrocodone/Acetaminophen ([place] 5-325 Tablet) 1 Each Tablet, 1 EACH PO Q8H, TAB 06/15/19 Gabapentin* (Gabapentin*) 100 Mg Capsule, 100 MG PO BID, #90 CAP 06/15/19 Metoprolol Succinate* (Toprol XL*) 25 Mg Tab.sr.24h, 25 MG PO DAILY, #30 TAB 06/15/19 Discontinued Reported Medications Metoprolol Succinate* (Toprol XL*) 25 Mg Tab.sr.24h, 25 MG PO DAILY, #30 TAB 03/04/17 Primary Care Provider Yun Brooks DO Time spent on discharge: > 30 minutes Pending Labs Laboratory Tests Test 06/21/19 07:45 06/21/19 11:54 06/21/19 17:25 06/21/19 20:23 Bedside 95 99 110 114 Glucose mg/dL (70-220) mg/dL (70-220) mg/dL (70-220) mg/dL (70-220) LIBIA JACOBSON Jun 21, 2019 23:19
[2019-06-22] VITALS: BP_SYST 116; BP_SYST 122; BP_SYST 149; BP_DIAS 56; BP_DIAS 68; BP_DIAS 96; PULSE 82; PULSE 99; RESP 18
[2019-06-22] MEDS: ACCU-CHEK XX SCH (01:33)
[2019-06-22 04:22] VITALS: BP 124/78; PULSE 87; RESP 18
[2019-06-22] MEDS: LEVOTHYROXINE 50 MCG TAB PO SCH (05:55)
[2019-06-22 07:24] VITALS: BP 149/77; PULSE 74; RESP 19
[2019-06-22] MEDS: INSULIN ASPART [NOVOLOG] 3 ML PEN SC SCH ×2 (08:00→12:00)
[2019-06-22] MEDS: MECLIZINE 12.5 MG TAB PO SCH (08:44)
[2019-06-22] MEDS: ASPIRIN (EC) 81 MG TAB PO SCH (08:45)
[2019-06-22] MEDS: METOPROLOL (XL) 25 MG TAB PO SCH (08:45)
[2019-06-22] MEDS: DORZOLAMIDE 2% 10 ML OPH BOTH EYES SCH ×2 (08:46→13:15)
[2019-06-22] MEDS: metFORMIN 500 MG TAB PO SCH (08:56)
--- NOTE | 2019-06-22 09:35 | CONS ---
Assessment/Plan Assessment/Plan Assessment/Plan (Recall) 58 F c/ multiple cerebrovascular risk factors, who presents for evaluation of left hemiparesis x 5 days. MRI brain confirmed R hemispheric, predominantly MCA, infarctions... MRA head was notable for R M2 stenosis; MRA neck is unrevealing. Head CT 06/20 is w/o evidence of hemorrhage or other interval pathology.. Echo is unrevealing LDL 158 A1C 6.5 RPR neg c/o vertigo and nausea/vomiting, relieved by meclizine. P: Cont asa/lipitor daily for now BP control and other medical management per primary Agree w/ Tx to acute rehab.. Consultation Date/Type/Reason Admit Date/Time Jun 15, 2019 at 12:19 Type of Consult Neurology Reason for Consultation stroke Requesting Provider: LIBIA JACOBSON Date/Time of Note DATE: 06/22/19 TIME: 09:34 24 HR Interval Summary Free Text/Dictation Awaits Tx to acute rehab Exam/Review of Systems Exam Vitals Vital Signs Date Temp Pulse Resp B/P (MAP) Pulse Ox O2 O2 Flow FiO2 Time Delivery Rate 06/22/19 97.9 74 19 149/77 95 07:24 (101) 06/22/19 Room Air 04:22 Intake and Output 06/21/19 06/21/19 06/22/19 1515:00 23:00 07:00 IntakeIntake Total 180 ml 450 ml OutputOutput Total 3 ml BalanceBalance 180 ml 447 ml Results Result Diagram: 06/19/19 0451 06/19/19 0451 Results 24hrs Laboratory Tests Test 06/21/19 11:54 06/21/19 17:25 06/21/19 20:23 06/22/19 07:27 Bedside Glucose 99 110 114 88 Medications Medication Current Medications Dorzolamide HCl (Trusopt) 1 drop TID BOTH EYES Last administered on 06/22/19at 08:46; Admin Dose 1 DROP; Start 06/15/19 at 21:00 Levothyroxine Sodium (Synthroid) 50 mcg DAILY@06 PO Last administered on 06/22/19at 05:55; Admin Dose 50 MCG; Start 06/16/19 at 06:00 Metformin HCl (Glucophage) 1,000 mg WITH BREAKFAST DINNE PO Last administered on 06/22/19at 08:56; Admin Dose 1,000 MG; Start 06/15/19 at 18:00 Metoprolol Succinate (Toprol Xl) 25 mg DAILY PO Last administered on 06/22/19at 08:45; Admin Dose 25 MG; Start 06/16/19 at 09:00 Miscellaneous Information 1 ea NOTE XX ; Start 06/15/19 at 16:30 Glucose (Glutose) 15 gm Q15M PRN PO DECREASED GLUCOSE; Start 06/15/19 at 16:30 Glucose (Glutose) 22.5 gm Q15M PRN PO DECREASED GLUCOSE; Start 06/15/19 at 16:30 Dextrose (D50w Syringe) 25 ml Q15M PRN IV DECREASED GLUCOSE; Start 06/15/19 at 16:30 Dextrose (D50w Syringe) 50 ml Q15M PRN IV DECREASED GLUCOSE; Start 06/15/19 at 16:30 Glucagon (Glucagen) 1 mg Q15M PRN IM DECREASED GLUCOSE; Start 06/15/19 at 16:30 Glucose (Glutose) 15 gm Q15M PRN BUCCAL DECREASED GLUCOSE; Start 06/15/19 at 16:30 Aspirin (Halfprin) 81 mg DAILY PO Last administered on 06/22/19at 08:45; Admin Dose 81 MG; Start 06/16/19 at 09:00 Diagnostic Test (Pha) (Accu-Chek) 1 ea 02 XX ; Start 06/16/19 at 02:00 Insulin Aspart (Novolog Insulin Pen) NOVOLOG *MILD* ALGORITHM WITH MEALS BEDTIME SC ; Start 06/15/19 at 21:00 Atorvastatin Calcium (Lipitor) 80 mg HS PO Last administered on 06/21/19at 20:22; Admin Dose 80 MG; Start 06/16/19 at 21:00 Hydralazine HCl (Apresoline) 10 mg Q4H PRN IV SBP >170; Start 06/16/19 at 12:30 Acetaminophen (Tylenol Tab) 650 mg Q4H PRN PO MILD PAIN(1-3)OR ELEVATED TEMP Last administered on 06/20/19at 08:31; Admin Dose 650 MG; Start 06/17/19 at 04:00 Diphenhydramine HCl (Benadryl) 25 mg Q6H PRN PO ITCHING Last administered on 06/17/19at 18:07; Admin Dose 25 MG; Start 06/17/19 at 18:00 Nitroglycerin (Nitroglycerin (Sl Tab) 0.4 Mg) 1 tab Q5M PRN SL ANGINA; Start 06/18/19 at 19:30 Ondansetron HCl (Zofran Inj) 4 mg Q4H PRN IV NAUSEA AND/OR VOMITING; Start 06/19/19 at 21:30 Meclizine HCl (Antivert) 12.5 mg TID PO Last administered on 06/22/19at 08:44; Admin Dose 12.5 MG; Start 06/20/19 at 09:00 ALYCIA YUNG Jun 22, 2019 09:35
[2019-06-22] MEDS ORDERED: MECLIZINE 12.5 MG TAB PO PRN (10:00)
[2019-06-22 11:06] VITALS: BP 119/64; PULSE 76; RESP 20
--- NOTE | 2019-06-22 12:26 | CONS ---
Assessment/Plan Assessment/Plan Hospital Course (Demo Recall) IMPRESSION: 1. Chest pain, assess for acute coronary syndrome, somewhat vague description described as a cramping sensation with a cath no significant obstructive disease in 2017.-neg trop x 3 2. Hypertension-reasonable 3. Dyslipidemia. 4. CVA, acute with ongoing left upper extremity and lower extremity weakness.- seen by HEad CT as well, strength improving in RUE/RLE 5. Hypothyroidism. 6. Diabetes mellitus. Recc: -Tele -Continue asa/statin -Contineu toprol xl at current dose for now and follow somewhat labile BP -ongoing neuro eval with improving RUE/RLE strength Consultation Date/Type/Reason Admit Date/Time Jun 15, 2019 at 12:19 Initial Consult Date 06/15/19 Type of Consult Cardiology Reason for Consultation Chest pain Requesting Provider: LIBIA JACOBSON Date/Time of Note DATE: 06/22/19 TIME: 12:24 Exam/Review of Systems Vital Signs Vitals Vital Signs Date Temp Pulse Resp B/P (MAP) Pulse Ox O2 O2 Flow FiO2 Time Delivery Rate 06/22/19 98.0 76 20 119/64 100 11:06 (82) 06/22/19 Room Air 04:22 Intake and Output 06/21/19 06/21/19 06/22/19 1515:00 23:00 07:00 IntakeIntake Total 180 ml 450 ml OutputOutput Total 3 ml BalanceBalance 180 ml 447 ml Exam Exam Review of Systems: CONSTITUTIONAL: No fevers, chills. PULMONARY: No sob CARDIOVASCULAR: No chest pain/palpitations GASTROINTESTINAL: No nausea/vomiting. GENITOURINARY: No hematuria/dysuria. MUSCULOSKELETAL: No myagias/arthalgias. PSYCHIATRIC: The patient denies depression. NEUROLOGIC: focal weakness Constitutional: alert, oriented Psych: no complaints Head: normocephalic ENMT: mucosa pink and moist Neck: supple, jvd (9 cm water) Respiratory: clear to auscultation Cardiovascular: regular rate and rhythm Gastrointestinal: soft, non-tender Musculoskeletal: muscle weakness (LUE/LLE) Extremities: edema (none) Neurological: focal weakness Labs Result Diagram: 06/19/19 0451 06/19/19 0451 Results 24hrs Laboratory Tests Test 06/21/19 17:25 06/21/19 20:23 06/22/19 07:27 06/22/19 11:50 Bedside Glucose 110 114 88 66 L Medications Medications Current Medications Dorzolamide HCl (Trusopt) 1 drop TID BOTH EYES Last administered on 06/22/19at 08:46; Admin Dose 1 DROP; Start 06/15/19 at 21:00 Levothyroxine Sodium (Synthroid) 50 mcg DAILY@06 PO Last administered on 06/22/19at 05:55; Admin Dose 50 MCG; Start 06/16/19 at 06:00 Metformin HCl (Glucophage) 1,000 mg WITH BREAKFAST DINNE PO Last administered on 06/22/19at 08:56; Admin Dose 1,000 MG; Start 06/15/19 at 18:00 Metoprolol Succinate (Toprol Xl) 25 mg DAILY PO Last administered on 06/22/19at 08:45; Admin Dose 25 MG; Start 06/16/19 at 09:00 Miscellaneous Information 1 ea NOTE XX ; Start 06/15/19 at 16:30 Glucose (Glutose) 15 gm Q15M PRN PO DECREASED GLUCOSE; Start 06/15/19 at 16:30 Glucose (Glutose) 22.5 gm Q15M PRN PO DECREASED GLUCOSE; Start 06/15/19 at 16:30 Dextrose (D50w Syringe) 25 ml Q15M PRN IV DECREASED GLUCOSE; Start 06/15/19 at 16:30 Dextrose (D50w Syringe) 50 ml Q15M PRN IV DECREASED GLUCOSE; Start 06/15/19 at 16:30 Glucagon (Glucagen) 1 mg Q15M PRN IM DECREASED GLUCOSE; Start 06/15/19 at 16:30 Glucose (Glutose) 15 gm Q15M PRN BUCCAL DECREASED GLUCOSE; Start 06/15/19 at 16:30 Aspirin (Halfprin) 81 mg DAILY PO Last administered on 06/22/19at 08:45; Admin Dose 81 MG; Start 06/16/19 at 09:00 Diagnostic Test (Pha) (Accu-Chek) 1 ea 02 XX ; Start 06/16/19 at 02:00 Insulin Aspart (Novolog Insulin Pen) NOVOLOG *MILD* ALGORITHM WITH MEALS BEDTIME SC ; Start 06/15/19 at 21:00 Atorvastatin Calcium (Lipitor) 80 mg HS PO Last administered on 06/21/19at 20:22; Admin Dose 80 MG; Start 06/16/19 at 21:00 Hydralazine HCl (Apresoline) 10 mg Q4H PRN IV SBP >170; Start 06/16/19 at 12:30 Acetaminophen (Tylenol Tab) 650 mg Q4H PRN PO MILD PAIN(1-3)OR ELEVATED TEMP Last administered on 06/20/19at 08:31; Admin Dose 650 MG; Start 06/17/19 at 04:00 Diphenhydramine HCl (Benadryl) 25 mg Q6H PRN PO ITCHING Last administered on 06/17/19at 18:07; Admin Dose 25 MG; Start 06/17/19 at 18:00 Nitroglycerin (Nitroglycerin (Sl Tab) 0.4 Mg) 1 tab Q5M PRN SL ANGINA; Start 06/18/19 at 19:30 Ondansetron HCl (Zofran Inj) 4 mg Q4H PRN IV NAUSEA AND/OR VOMITING; Start 06/19/19 at 21:30 Meclizine HCl (Antivert) 12.5 mg TID PRN PO vertigo; Start 06/22/19 at 10:00 HILARIA WINSTON Jun 22, 2019 12:26
[2019-06-22 15:38] VITALS: BP 137/84; PULSE 83; RESP 19
== END 2019-06-22 17:56 | DRG 65 ==
LOC: E/R 10:22 → 6WM 12:19
PROVIDERS: ADMIT Internal Medicine; ATTEND Internal Medicine
DX: I63.9 Cerebral infarction, unspecified (principal); G81.94 Hemiplegia, unspecified affecting left nondominant side; I42.9 Cardiomyopathy, unspecified; I10 Essential (primary) hypertension; E11.40 Type 2 diabetes mellitus with diabetic neuropathy, unspecified; E03.9 Hypothyroidism, unspecified; I25.10 Atherosclerotic heart disease of native coronary artery without angina pectoris; R07.9 Chest pain, unspecified; E78.5 Hyperlipidemia, unspecified; E87.6 Hypokalemia
CPT/HCPCS: 36415; 70450; 70544; 70548; 70551; 71045; 72125; 80048; 80053; 80061; 82550; 82553; 82962; 83036; 83735; 84436; 84479; 84484; 85025; 85610; 85651; 85730; 86592; 92526; 92610; 93005; 93306; 97110; 97116; 97163; 97165; 97530; 97535; J1815; J7030

== ENCOUNTER 2019-06-22 16:49 | Inpatient (IN) | payer OTHER ==
[~2019-06-22] VITALS: Ht 154.9 cm; Wt 89.7 kg
[2019-06-22 14:00] VITALS: BP 101/42; PULSE 74; RESP 18
[~2019-06-22 16:49] MED LIST changes: +DORZ10DR5 BOTH EYES; +GABA100C14 PO; +HYDR-4011 PO; +LEVO50TA7 PO; +LISI10TA2 PO; +METF100010 PO
[2019-06-22 18:30] VITALS: BP 128/65; PULSE 71; RESP 17
[2019-06-22] MEDS ORDERED: MAGNESIUM HYDROXIDE 30ML CUP PO PRN (19:00)
[2019-06-22] MEDS ORDERED: BISACODYL 10 MG SUPP PR PRN (19:00)
[2019-06-22] MEDS ORDERED: ACETAMINOPHEN 325 MG TAB PO PRN (19:00)
[2019-06-22] MEDS ORDERED: PENDING SANTYL ORDER FOR WOUND CARE XX PRN (19:00)
[2019-06-22] MEDS ORDERED: LACTULOSE 30ML CUP PO PRN (19:00)
--- NOTE | 2019-06-22 19:21 | HP ---
Date/Time of Note Date/Time of Note DATE: 06/22/19 TIME: 19:15 Assessment/Plan VTE Prophylaxis SCD applied (from Nsg): Yes Pharmacological prophylaxis: other Assessment/Plan Hospital Course Pt denies N/V, denies SOB, denies CP. Assessment/Plan -Dizziness,improved, continue meclizine.repeat CT of the brain with no evidence for hemorrhagic transformation of the evolving acute to subacute ischemic right posterior frontal, parietal and occipital lobe infarcts. -Acute stroke with residual left-sided weakness. Continue aspirin and Lipitor. Continue PT OT. Dr. Bailey is following in neurology consultation. -Dizziness continue meclizine as needed. Repeat CT of the brain with no evidence for hemorrhagic transformation of the evolving acute to subacute ischemic right posterior frontal, parietal and occipital lobe infarcts. -Cardiomyopathy. 2D echo with preserved ejection fraction. Dr. Aggarwal is following in cardiology consultation. -Diabetes mellitus type 2 with hemoglobin A1c of 6.5, continue metformin and NovoLog per mild algorithm sliding scale. -Hypertension, continue metoprolol. -Hypothyroidism, continue levothyroxine. -Hyperlipidemia, continue Lipitor. Further recommendations based on clinical course. Plan of care discussed with Dr. Stevenson. HPI/ROS Admit Date/Time Admit Date/Time Jun 22, 2019 at 18:34 Hx of Present Illness The patient is a 58-year-old female with nonobstructive coronary artery disease per cardiac cath 2 years ago, hypertension, hyperlipidemia, hypothyroidism, diabetes with neuropathy suffered acute stroke with residual left sided weakness. Unfortunately patient was outside of the window for any thrombolytics. Patient is admitted to [facility] and was evaluated by followed by Dr. Bailey in neurology consultation and Dr. Aggarwal in cardiology consultation. Patient was evaluated by speech therapy and currently tolerates regular diet well. Patient continues to have left-sided weakness and underwent PT and OT evaluation with recommendation for skilled PT and OT. Patient had occasional dizziness however denies it today denies any chest pain denies shortness of breath denies any fever chills. Patient was transferred to acute rehab for further management. ROS 12 point review of system is negative except for what mentioned in HPI PMH/Family/Social Past Medical History Medical History: diabetes, high cholesterol, hypertension, hypothyroid Medications Current Medications Docusate Sodium (Colace) 100 mg BID PO ; Start 06/22/19 at 21:00 Senna (Senokot) 1 tab HS PO ; Start 06/22/19 at 21:00 Magnesium Hydroxide (Milk Of Mag) 30 ml BID PRN PO CONSTIPATION; Start 06/22/19 at 19:00 Lactulose (Enulose) 20 gm DAILY PRN PO CONSTIPATION; Start 06/22/19 at 19:00 Bisacodyl (Dulcolax Supp) 10 mg DAILY PRN [place] CONSTIPATION; Start 06/22/19 at 19:00 Acetaminophen (Tylenol Tab) 650 mg Q4H PRN PO PAIN; Start 06/22/19 at 19:00 Miscellaneous Information (Pending Santyl Order For Wound Care) This patient lott... PRN PRN XX WOUND CARE; Start 06/22/19 at 19:00; Status UNV Coded Allergies: No Known Allergies (Verified Allergy, Unknown, 06/15/19) Past Surgical History Past Surgical Hx: other (Status post , status post cataract surgery) Family History Significant Family History: diabetes Social History Alcohol Use: none Smoking Status: Never smoker Drug Use: none Exam/Review of Systems Exam Constitutional: alert, oriented Head: normocephalic Neck: supple Respiratory: clear to auscultation Cardiovascular: nl pulses Gastrointestinal: soft, non-tender Musculoskeletal: other (Left-sided weakness) Extremities: normal pulses Neurological: nl mental status LIBIA JACOBSON Jun 22, 2019 19:21
[2019-06-22 20:00] VITALS: Ht 154.9 cm; Wt 89.7 kg
[2019-06-22] MEDS ORDERED: DIPHENHYDRAMINE 25 MG CAP PO PRN (20:00)
[2019-06-22] MEDS ORDERED: NITROGLYCERIN (SL) 0.4 MG TAB SL PRN (20:00)
[2019-06-22] MEDS ORDERED: ONDANSETRON 4 MG INJ IV PRN (20:00)
[2019-06-22] MEDS ORDERED: GLUCOSE GEL 15 GRAM TUBE BUCCAL PRN (20:30)
[2019-06-22] MEDS ORDERED: DEXTROSE 50% 50 ML SYRINGE IV PRN ×2 (20:30)
[2019-06-22] MEDS ORDERED: GLUCAGON 1 MG INJ IM PRN (20:30)
[2019-06-22] MEDS ORDERED: GLUCOSE GEL 15 GRAM TUBE PO PRN ×2 (20:30)
[2019-06-22] MEDS: DOCUSATE SODIUM 100 MG CAP PO SCH ×2 (20:34→21:00)
[2019-06-22] MEDS: ATORVASTATIN 80 MG TAB PO SCH (20:34)
[2019-06-22 20:43] VITALS: BP 121/80; PULSE 74; RESP 20
[2019-06-22] MEDS: INSULIN ASPART [NOVOLOG] 3 ML PEN SC SCH (21:00)
[2019-06-22] MEDS: ACCU-CHEK XX SCH (21:00)
[2019-06-22] MEDS: SENNA TAB PO SCH (21:00)
[2019-06-22] MEDS: MECLIZINE 12.5 MG TAB PO SCH (21:20)
[2019-06-22] MEDS: DORZOLAMIDE 2% 10 ML OPH BOTH EYES SCH (21:20)
[2019-06-23 02:09] VITALS: BP 115/67; PULSE 70; RESP 19
[2019-06-23] MEDS: LEVOTHYROXINE 50 MCG TAB PO SCH (05:40)
[2019-06-23] MEDS: ACCU-CHEK XX SCH ×4 (07:05→21:00)
[2019-06-23] MEDS: INSULIN ASPART [NOVOLOG] 3 ML PEN SC SCH ×4 (07:35→21:00)
[2019-06-23 07:50] VITALS: BP 119/71; PULSE 60; RESP 16
[2019-06-23] MEDS: metFORMIN 500 MG TAB PO SCH ×2 (08:12→17:20)
[2019-06-23] MEDS: MECLIZINE 12.5 MG TAB PO SCH ×3 (08:40→20:48)
[2019-06-23] MEDS: DORZOLAMIDE 2% 10 ML OPH BOTH EYES SCH ×3 (08:41→20:48)
[2019-06-23] MEDS: METOPROLOL (XL) 25 MG TAB PO SCH (08:41)
[2019-06-23] MEDS: DOCUSATE SODIUM 100 MG CAP PO SCH ×2 (08:41→21:00)
[2019-06-23] MEDS: ASPIRIN (EC) 81 MG TAB PO SCH (08:41)
[2019-06-23] MEDS: ACETAMINOPHEN 325 MG TAB PO PRN ×2 (08:41→19:42)
[2019-06-23 14:00] VITALS: BP 128/62; PULSE 64; RESP 18
--- NOTE | 2019-06-23 16:57 | CONS ---
DATE OF ADMISSION: 06/22/2019 DATE OF CONSULTATION: 06/23/2019 REHABILITATION POST-ADMISSION PHYSICIAN EVALUATION REHABILITATION IMPAIRMENT CATEGORY: Right parietal infarct cerebrovascular accident with left-sided weakness. ACTIVE COMORBIDITIES: 1. Hypertension. 2. Diabetes mellitus. 3. Hypothyroidism. 4. Cardiomyopathy. 5. Hyperlipidemia. 6. Dysphagia 7. I mpairments in self-care and mobility HISTORY OF PRESENT ILLNESS: The patient is a pleasant 58-year-old female with a history of hypertension, diabetes mellitus type 2, hypothyroidism and cardiomyopathy and hyperlipidemia who noted left-sided weakness for 4 days prior to admission. The patient was outside the window for tPA. A CT of the brain did reveal an acute to subacute nonhemorrhagic right parietal occipital lobe infarct. The patient was noted to have some dysphagia in addition to significant impairments in self-care and mobility as compared to baseline, and has been cleared to transfer to the rehabilitation unit for comprehensive interdisciplinary rehab care. FUNCTIONAL HISTORY: Prior to recent events, she was independent in self-care tasks. Currently, the patient requires minimal to moderate assist for self-care and mobility tasks. I have reviewed the preadmission screen and patient's current functional status is consistent with the preadmission screen. FAMILY AND SOCIAL HISTORY: The patient lives at home with her family in a third floor apartment with multiple stair steps and no elevator. She hopes to return there upon discharge. PAST MEDICAL HISTORY: 1. Hypertension. 2. Diabetes mellitus. 3. Diabetic neuropathy. 4. Hypothyroidism. 5. Coronary artery disease with history of cardiac catheterization. 6. History of . 7. History of cataract surgery. CURRENT MEDICATIONS: 1. Aspirin 81 mg p.o. daily. 2. Lipitor 80 mg p.o. at bedtime. 3. Benadryl p.r.n. 4. Trusopt 1 drop t.i.d. 5. Insulin sliding scale. 6. Hydralazine 25 mg p.o. q.6 p.r.n. 7. Synthroid 50 mcg p.o. daily. 8. Antivert 12.5 mg p.o. t.i.d. 9. Glucophage 1000 mg p.o. q.a.m. and with dinner. 10. Toprol-XL 25 mg p.o. daily. 11. Nitroglycerin p.r.n. ALLERGIES: THE PATIENT WITH NO KNOWN DRUG ALLERGIES. PHYSICAL EXAMINATION: VITAL SIGNS: She is currently afebrile with stable vital signs. HEENT: Extraocular motions are intact. Oropharynx clear. NECK: Supple. LUNGS: Clear anteriorly. CARDIAC: S1, S2. ABDOMEN: Soft, nontender, positive bowel sounds. NEUROLOGIC: She is awake and alert. She is oriented to person, place and time. She can follow simple 1-step commands. She demonstrates good strength in the right upper and lower extremity. She has antigravity strength in the left upper and lower extremity. She has impaired dynamic balance. PLAN: The patient has been admitted for comprehensive interdisciplinary acute rehab and is anticipated to tolerate 3 hours of daily therapy in divided doses for at least 5/7 days a week. The treatment plan will include: 1. Physical therapy to focus on bed mobility, transfers, and household ambulation with the goal of having the patient reach a standby assist level. 2. Occupational therapy to focus on hygiene, grooming, dressing, bathing, and toileting activities with goal of having patient reach a standby assist level. 3. Rehabilitation speech therapy for full cognitive assessment and retraining in addition to dysphagia management with the goal of having the patient meet nutritional needs by mouth and return to baseline cognition. 4. Rehabilitation nursing for carryover of therapeutic interventions, the goal of continent of bowel and bladder, and the goal of patient education with regards to the aforementioned issues. ESTIMATED LENGTH OF STAY: 7 days. DISPOSITION GOAL: Home with family. REHABILITATION BARRIER: Weakness. INTERVENTION FOR BARRIER: Interdisciplinary approach. I acknowledge that I performed a full physical examination on this patient within 24 hours of admission to the rehabilitation unit. I believe the patient is a good candidate for comprehensive interdisciplinary rehab care and is anticipated to make reasonable goals in a reasonable period of time as outlined above. Dictated By: SHE TEAGUE/JSOE Conf#: [id number] DID#: [id number] MTDD
--- NOTE | 2019-06-23 18:14 | PN ---
Date/Time of Note Date/Time of Note DATE: 06/23/19 TIME: 18:11 Assessment/Plan VTE Prophylaxis Risk score (from Ns)>0 risk: 2 SCD applied (from Ns): Yes Pharmacological prophylaxis: NA/contraindicated Pharm contraindication: other Lines/Catheters IV [facility] [place] Urinary Cath still in place: No Assessment/Plan Hospital Course Patient is sitting in bed eating dinner, denies any dizziness, denies chest pain denies shortness of breath. Blood sugar is adequately controlled, patient participates in physical therapy. Assessment/Plan -Dizziness, improved, continue meclizine. Repeat CT of the brain with no evidence for hemorrhagic transformation of the evolving acute to subacute ischemic right posterior frontal, parietal and occipital lobe infarcts. -Acute stroke with residual left-sided weakness. Continue aspirin and Lipitor. Continue PT OT. Dr. Bailey is following in neurology consultation. -Dizziness continue meclizine as needed. Repeat CT of the brain with no evidence for hemorrhagic transformation of the evolving acute to subacute ischemic right posterior frontal, parietal and occipital lobe infarcts. -Cardiomyopathy. 2D echo with preserved ejection fraction. Dr. Aggarwal is following in cardiology consultation. -Diabetes mellitus type 2 with hemoglobin A1c of 6.5, continue metformin and NovoLog per mild algorithm sliding scale. -Hypertension, continue metoprolol. -Hypothyroidism, continue levothyroxine. -Hyperlipidemia, continue Lipitor. Further recommendations based on clinical course. Plan of care discussed with Dr. Stevenson. Result Diagram: 06/23/19 0555 06/23/19 0555 Results 24hrs Laboratory Tests Test 06/22/19 20:39 06/23/19 05:00 06/23/19 05:55 06/23/19 08:09 Bedside Glucose 129 95 Urine Color YELLOW Urine Clarity CLEAR Urine pH 6.0 Urine Specific 1.014 [place] Urine Ketones NEGATIVE Urine Nitrite NEGATIVE Urine Bilirubin NEGATIVE Urine Urobilinogen NEGATIVE Urine Leukocyte NEGATIVE Esterase Urine Hemoglobin NEGATIVE Urine Glucose NEGATIVE Urine Total Protein NEGATIVE White Blood Count 9.2 Red Blood Count 4.68 Hemoglobin 12.3 Hematocrit 38.1 Mean Corpuscular 81.4 L Volume Mean Corpuscular 26.3 L Hemoglobin Mean Corpuscular 32.3 Hemoglobin Concent Red Cell 14.3 Distribution Width Platelet Count 415 Mean Platelet Volume 9.1 Immature 0.100 Granulocytes % Neutrophils % 59.4 Lymphocytes % 30.7 Monocytes % 6.6 Eosinophils % 2.4 Basophils % 0.8 Nucleated Red Blood 0.0 Cells % Immature 0.010 Granulocytes # Neutrophils # 5.5 Lymphocytes # 2.8 Monocytes # 0.6 Eosinophils # 0.2 Basophils # 0.1 Nucleated Red Blood 0.0 Cells # Sodium Level 140 Potassium Level 3.6 Chloride Level 105 Carbon Dioxide Level 26 Anion Gap 9 Blood Urea Nitrogen 10 Creatinine 0.59 Est Glomerular > 60 Filtrat Rate mL/min Glucose Level 101 Calcium Level 9.2 Total Bilirubin 0.7 Direct Bilirubin 0.00 Indirect Bilirubin 0.7 Aspartate Amino 25 Transf (AST/SGOT) Alanine 24 Aminotransferase (AL T/SGPT) Alkaline Phosphatase 99 Total Protein 7.5 Albumin 3.8 Globulin 3.70 H Albumin/Globulin 1.02 Ratio Test 06/23/19 11:59 06/23/19 17:17 Bedside Glucose 91 90 Exam/Review of Systems Exam Vitals Vital Signs Date Temp Pulse Resp B/P (MAP) Pulse Ox O2 O2 Flow FiO2 Time Delivery Rate 06/23/19 98.8 64 18 128/62 96 14:00 (84) 06/22/19 Room Air 14:00 Intake and Output 06/22/19 06/22/19 06/23/19 1515:00 23:00 07:00 IntakeIntake Total 300 ml 550 ml OutputOutput Total 900 ml BalanceBalance 300 ml -350 ml Exam Constitutional: alert, oriented Head: normocephalic Neck: supple Respiratory: clear to auscultation Cardiovascular: nl pulses Gastrointestinal: soft, non-tender Musculoskeletal: other (Left-sided weakness) Extremities: normal pulses Neurological: nl mental status Results Results 24hrs Laboratory Tests Test 06/22/19 20:39 06/23/19 05:00 06/23/19 05:55 06/23/19 08:09 Bedside Glucose 129 95 Urine Color YELLOW Urine Clarity CLEAR Urine pH 6.0 Urine Specific 1.014 [place] Urine Ketones NEGATIVE Urine Nitrite NEGATIVE Urine Bilirubin NEGATIVE Urine Urobilinogen NEGATIVE Urine Leukocyte NEGATIVE Esterase Urine Hemoglobin NEGATIVE Urine Glucose NEGATIVE Urine Total Protein NEGATIVE White Blood Count 9.2 Red Blood Count 4.68 Hemoglobin 12.3 Hematocrit 38.1 Mean Corpuscular 81.4 L Volume Mean Corpuscular 26.3 L Hemoglobin Mean Corpuscular 32.3 Hemoglobin Concent Red Cell 14.3 Distribution Width Platelet Count 415 Mean Platelet Volume 9.1 Immature 0.100 Granulocytes % Neutrophils % 59.4 Lymphocytes % 30.7 Monocytes % 6.6 Eosinophils % 2.4 Basophils % 0.8 Nucleated Red Blood 0.0 Cells % Immature 0.010 Granulocytes # Neutrophils # 5.5 Lymphocytes # 2.8 Monocytes # 0.6 Eosinophils # 0.2 Basophils # 0.1 Nucleated Red Blood 0.0 Cells # Sodium Level 140 Potassium Level 3.6 Chloride Level 105 Carbon Dioxide Level 26 Anion Gap 9 Blood Urea Nitrogen 10 Creatinine 0.59 Est Glomerular > 60 Filtrat Rate mL/min Glucose Level 101 Calcium Level 9.2 Total Bilirubin 0.7 Direct Bilirubin 0.00 Indirect Bilirubin 0.7 Aspartate Amino 25 Transf (AST/SGOT) Alanine 24 Aminotransferase (AL T/SGPT) Alkaline Phosphatase 99 Total Protein 7.5 Albumin 3.8 Globulin 3.70 H Albumin/Globulin 1.02 Ratio Test 06/23/19 11:59 06/23/19 17:17 Bedside Glucose 91 90 Medications Medication Current Medications Docusate Sodium (Colace) 100 mg BID PO Last administered on 06/23/19at 08:41; Admin Dose 100 MG; Start 06/22/19 at 21:00 Senna (Senokot) 1 tab HS PO ; Start 06/22/19 at 21:00 Magnesium Hydroxide (Milk Of Mag) 30 ml BID PRN PO CONSTIPATION; Start 06/22/19 at 19:00 Lactulose (Enulose) 20 gm DAILY PRN PO CONSTIPATION; Start 06/22/19 at 19:00 Bisacodyl (Dulcolax Supp) 10 mg DAILY PRN [place] CONSTIPATION; Start 06/22/19 at 19:00 [facility] This patient lott... PRN PRN XX WOUND CARE; Start 06/22/19 at 19:00 Acetaminophen (Tylenol Tab) 650 mg Q4H PRN PO MILD PAIN(1-3)OR ELEVATED TEMP Last administered on 06/23/19at 08:41; Admin Dose 650 MG; Start 06/22/19 at 20:00 Atorvastatin Calcium (Lipitor) 80 mg HS PO Last administered on 06/22/19at 20:34; Admin Dose 80 MG; Start 06/22/19 at 21:00 Dorzolamide HCl (Trusopt) 1 drop TID BOTH EYES Last administered on 06/23/19at 12:05; Admin Dose 1 DROP; Start 06/22/19 at 21:00 Insulin Aspart (Novolog Insulin Pen) NOVOLOG *MILD* ALGORITHM WITH MEALS BEDTIME SC ; Start 06/22/19 at 21:00 Meclizine HCl (Antivert) 12.5 mg TID PO Last administered on 06/23/19at 12:05; Admin Dose 12.5 MG; Start 06/22/19 at 21:00 Metoprolol Succinate (Toprol Xl) 25 mg DAILY PO Last administered on 06/23/19at 08:41; Admin Dose 25 MG; Start 06/23/19 at 09:00 Ondansetron HCl (Zofran Inj) 4 mg Q4H PRN IV NAUSEA AND/OR VOMITING; Start 06/22/19 at 20:00 Nitroglycerin (Nitroglycerin (Sl Tab) 0.4 Mg) 1 tab Q5M PRN SL ANGINA; Start 06/22/19 at 20:00 Hydralazine HCl (Apresoline) 25 mg Q6 PRN PO ELEVATED BLOOD PRESSURE; Start 06/22/19 at 20:00 Miscellaneous Information 1 ea NOTE XX ; Start 06/22/19 at 20:30 Glucose (Glutose) 15 gm Q15M PRN PO DECREASED GLUCOSE; Start 06/22/19 at 20:30 Glucose (Glutose) 22.5 gm Q15M PRN PO DECREASED GLUCOSE; Start 06/22/19 at 20:30 Dextrose (D50w Syringe) 25 ml Q15M PRN IV DECREASED GLUCOSE; Start 06/22/19 at 20:30 Dextrose (D50w Syringe) 50 ml Q15M PRN IV DECREASED GLUCOSE; Start 06/22/19 at 20:30 Glucagon (Glucagen) 1 mg Q15M PRN IM DECREASED GLUCOSE; Start 06/22/19 at 20:30 Glucose (Glutose) 15 gm Q15M PRN BUCCAL DECREASED GLUCOSE; Start 06/22/19 at 20:30 Aspirin (Halfprin) 81 mg DAILY PO Last administered on 06/23/19at 08:41; Admin Dose 81 MG; Start 06/23/19 at 09:00 Diphenhydramine HCl (Benadryl) 25 mg Q6H PRN PO ITCHING; Start 06/22/19 at 20:00 Levothyroxine Sodium (Synthroid) 50 mcg DAILY@06 PO Last administered on 06/23/19at 05:40; Admin Dose 50 MCG; Start 06/23/19 at 06:00 Metformin HCl (Glucophage) 1,000 mg WITH BREAKFAST DINNE PO Last administered on 06/23/19at 17:20; Admin Dose 1,000 MG; Start 06/23/19 at 07:35 Diagnostic Test (Pha) (Accu-Chek) 1 ea AC MEALS AND BEDTIME XX Last administered on 06/22/19at 21:00; Admin Dose 1 EA; Start 06/22/19 at 21:00 LIBIA JACOBSON Jun 23, 2019 18:14
--- NOTE | 2019-06-23 19:47 | CONS ---
Assessment/Plan Assessment/Plan Hospital Course (Demo Recall) IMPRESSION: 1. Chest pain, assess for acute coronary syndrome, somewhat vague description described as a cramping sensation with a cath no significant obstructive disease in 2017.-neg trop x 3 2. Hypertension-reasonable 3. Dyslipidemia. 4. CVA, acute with ongoing left upper extremity and lower extremity weakness.- seen by HEad CT as well, strength improving in RUE/RLE 5. Hypothyroidism. 6. Diabetes mellitus. Recc: -Now transferred to rehab -Continue asa/statin -Contineu toprol xl at current dose for now and follow somewhat labile BP -PT/OT Consultation Date/Type/Reason Admit Date/Time Jun 22, 2019 at 18:34 Initial Consult Date 06/23/19 Type of Consult Cardiology Reason for Consultation HTN Requesting Provider: SHAYY SERRA MD Date/Time of Note DATE: 06/23/19 TIME: 19:44 Exam/Review of Systems Vital Signs Vitals Vital Signs Date Temp Pulse Resp B/P (MAP) Pulse Ox O2 O2 Flow FiO2 Time Delivery Rate 06/23/19 98.8 64 18 128/62 96 14:00 (84) 06/22/19 Room Air 14:00 Intake and Output 06/22/19 06/22/19 06/23/19 1515:00 23:00 07:00 IntakeIntake Total 300 ml 550 ml OutputOutput Total 900 ml BalanceBalance 300 ml -350 ml Exam Exam Review of Systems: CONSTITUTIONAL: No fevers, chills. PULMONARY: No sob CARDIOVASCULAR: No chest pain/palpitations GASTROINTESTINAL: No nausea/vomiting. GENITOURINARY: No hematuria/dysuria. MUSCULOSKELETAL: No myagias/arthalgias. PSYCHIATRIC: The patient denies depression. NEUROLOGIC: LUE/LLE weakness Constitutional: alert, oriented Psych: no complaints Head: normocephalic ENMT: mucosa pink and moist Neck: supple, jvd (9 cm water) Respiratory: clear to auscultation Cardiovascular: regular rate and rhythm Gastrointestinal: soft, non-tender Musculoskeletal: muscle weakness (L sided) Extremities: edema (none) Neurological: focal weakness (LUE/LLE) Labs Result Diagram: 06/23/19 0555 06/23/19 0555 Results 24hrs Laboratory Tests Test 06/22/19 20:39 06/23/19 05:00 06/23/19 05:55 06/23/19 08:09 Bedside Glucose 129 95 Urine Color YELLOW Urine Clarity CLEAR Urine pH 6.0 Urine Specific 1.014 [place] Urine Ketones NEGATIVE Urine Nitrite NEGATIVE Urine Bilirubin NEGATIVE Urine Urobilinogen NEGATIVE Urine Leukocyte NEGATIVE Esterase Urine Hemoglobin NEGATIVE Urine Glucose NEGATIVE Urine Total Protein NEGATIVE White Blood Count 9.2 Red Blood Count 4.68 Hemoglobin 12.3 Hematocrit 38.1 Mean Corpuscular 81.4 L Volume Mean Corpuscular 26.3 L Hemoglobin Mean Corpuscular 32.3 Hemoglobin Concent Red Cell 14.3 Distribution Width Platelet Count 415 Mean Platelet Volume 9.1 Immature 0.100 Granulocytes % Neutrophils % 59.4 Lymphocytes % 30.7 Monocytes % 6.6 Eosinophils % 2.4 Basophils % 0.8 Nucleated Red Blood 0.0 Cells % Immature 0.010 Granulocytes # Neutrophils # 5.5 Lymphocytes # 2.8 Monocytes # 0.6 Eosinophils # 0.2 Basophils # 0.1 Nucleated Red Blood 0.0 Cells # Sodium Level 140 Potassium Level 3.6 Chloride Level 105 Carbon Dioxide Level 26 Anion Gap 9 Blood Urea Nitrogen 10 Creatinine 0.59 Est Glomerular > 60 Filtrat Rate mL/min Glucose Level 101 Calcium Level 9.2 Total Bilirubin 0.7 Direct Bilirubin 0.00 Indirect Bilirubin 0.7 Aspartate Amino 25 Transf (AST/SGOT) Alanine 24 Aminotransferase (AL T/SGPT) Alkaline Phosphatase 99 Total Protein 7.5 Albumin 3.8 Globulin 3.70 H Albumin/Globulin 1.02 Ratio Test 06/23/19 11:59 06/23/19 17:17 Bedside Glucose 91 90 Medications Medications Current Medications Docusate Sodium (Colace) 100 mg BID PO Last administered on 06/23/19at 08:41; Admin Dose 100 MG; Start 06/22/19 at 21:00 Senna (Senokot) 1 tab HS PO ; Start 06/22/19 at 21:00 Magnesium Hydroxide (Milk Of Mag) 30 ml BID PRN PO CONSTIPATION; Start 06/22/19 at 19:00 Lactulose (Enulose) 20 gm DAILY PRN PO CONSTIPATION; Start 06/22/19 at 19:00 Bisacodyl (Dulcolax Supp) 10 mg DAILY PRN [place] CONSTIPATION; Start 06/22/19 at 19:00 Miscellaneous Information (Pending [facility] Order For Wound Care) This patient lott... PRN PRN XX WOUND CARE; Start 06/22/19 at 19:00 Acetaminophen (Tylenol Tab) 650 mg Q4H PRN PO MILD PAIN(1-3)OR ELEVATED TEMP Last administered on 06/23/19at 19:42; Admin Dose 650 MG; Start 06/22/19 at 20:00 Atorvastatin Calcium (Lipitor) 80 mg HS PO Last administered on 06/22/19at 20:34; Admin Dose 80 MG; Start 06/22/19 at 21:00 Dorzolamide HCl (Trusopt) 1 drop TID BOTH EYES Last administered on 06/23/19at 12:05; Admin Dose 1 DROP; Start 06/22/19 at 21:00 Insulin Aspart (Novolog Insulin Pen) NOVOLOG *MILD* ALGORITHM WITH MEALS BEDTIM E SC ; Start 06/22/19 at 21:00 Meclizine HCl (Antivert) 12.5 mg TID PO Last administered on 06/23/19at 12:05; Admin Dose 12.5 MG; Start 06/22/19 at 21:00 Metoprolol Succinate (Toprol Xl) 25 mg DAILY PO Last administered on 06/23/19at 08:41; Admin Dose 25 MG; Start 06/23/19 at 09:00 Ondansetron HCl (Zofran Inj) 4 mg Q4H PRN IV NAUSEA AND/OR VOMITING; Start 06/22/19 at 20:00 Nitroglycerin (Nitroglycerin (Sl Tab) 0.4 Mg) 1 tab Q5M PRN SL ANGINA; Start 06/22/19 at 20:00 Hydralazine HCl (Apresoline) 25 mg Q6 PRN PO ELEVATED BLOOD PRESSURE; Start 06/22/19 at 20:00 Miscellaneous Information 1 ea NOTE XX ; Start 06/22/19 at 20:30 Glucose (Glutose) 15 gm Q15M PRN PO DECREASED GLUCOSE; Start 06/22/19 at 20:30 Glucose (Glutose) 22.5 gm Q15M PRN PO DECREASED GLUCOSE; Start 06/22/19 at 20:30 Dextrose (D50w Syringe) 25 ml Q15M PRN IV DECREASED GLUCOSE; Start 06/22/19 at 20:30 Dextrose (D50w Syringe) 50 ml Q15M PRN IV DECREASED GLUCOSE; Start 06/22/19 at 20:30 Glucagon (Glucagen) 1 mg Q15M PRN IM DECREASED GLUCOSE; Start 06/22/19 at 20:30 Glucose (Glutose) 15 gm Q15M PRN BUCCAL DECREASED GLUCOSE; Start 06/22/19 at 20:30 Aspirin (Halfprin) 81 mg DAILY PO Last administered on 06/23/19at 08:41; Admin Dose 81 MG; Start 06/23/19 at 09:00 Diphenhydramine HCl (Benadryl) 25 mg Q6H PRN PO ITCHING; Start 06/22/19 at 20:00 Levothyroxine Sodium (Synthroid) 50 mcg DAILY@06 PO Last administered on 06/23/19at 05:40; Admin Dose 50 MCG; Start 06/23/19 at 06:00 Metformin HCl (Glucophage) 1,000 mg WITH BREAKFAST DINNE PO Last administered on 06/23/19at 17:20; Admin Dose 1,000 MG; Start 06/23/19 at 07:35 Diagnostic Test (Pha) (Accu-Chek) 1 ea AC MEALS AND BEDTIME XX Last administered on 06/22/19at 21:00; Admin Dose 1 EA; Start 06/22/19 at 21:00 HILARIA WINSTON Jun 23, 2019 19:47
[2019-06-23 20:08] VITALS: BP 134/77; PULSE 62; RESP 18
[2019-06-23] MEDS: ATORVASTATIN 80 MG TAB PO SCH (20:48)
[2019-06-23] MEDS: SENNA TAB PO SCH (21:00)
[2019-06-24 02:00] VITALS: BP 125/68; PULSE 65; RESP 18
[2019-06-24] MEDS: LEVOTHYROXINE 50 MCG TAB PO SCH (06:25)
[2019-06-24 07:00] VITALS: BP 121/70; PULSE 64; RESP 18
[2019-06-24] MEDS: ACCU-CHEK XX SCH ×4 (07:05→20:52)
[2019-06-24] MEDS: INSULIN ASPART [NOVOLOG] 3 ML PEN SC SCH ×4 (07:35→20:51)
[2019-06-24] MEDS: metFORMIN 500 MG TAB PO SCH ×2 (08:00→17:26)
--- NOTE | 2019-06-24 08:37 | PN ---
Date/Time of Note Date/Time of Note DATE: 06/24/19 TIME: 08:33 Subjective AWAKE ALERT , NO PAIN , - SOB Objective Vital Signs Date Temp Pulse Resp B/P (MAP) Pulse Ox O2 O2 Flow FiO2 Time Delivery Rate 06/24/19 97.8 65 18 125/68 96 Room Air 02:00 (87) Intake and Output 06/23/19 06/23/19 06/24/19 1515:00 23:00 07:00 IntakeIntake Total 1000 ml 600 ml BalanceBalance 1000 ml 600 ml Exam CTA COR RRR MILD /MOD L LANA CLOF SOURAV XT AND GAIT Results/Medications Result Diagram: 06/23/19 0555 06/23/19 0555 Results 24 hrs Laboratory Tests Test 06/23/19 11:59 06/23/19 17:17 06/23/19 20:47 06/24/19 07:54 Bedside Glucose 91 90 99 91 Medications Current Medications Docusate Sodium (Colace) 100 mg BID PO Last administered on 06/23/19at 08:41; Admin Dose 100 MG; Start 06/22/19 at 21:00 Senna (Senokot) 1 tab HS PO ; Start 06/22/19 at 21:00 Magnesium Hydroxide (Milk Of Mag) 30 ml BID PRN PO CONSTIPATION; Start 06/22/19 at 19:00 Lactulose (Enulose) 20 gm DAILY PRN PO CONSTIPATION; Start 06/22/19 at 19:00 Bisacodyl (Dulcolax Supp) 10 mg DAILY PRN [place] CONSTIPATION; Start 06/22/19 at 19:00 Miscellaneous Information (Pending [facility] Order For Wound Care) This patient lott... PRN PRN XX WOUND CARE; Start 06/22/19 at 19:00 Acetaminophen (Tylenol Tab) 650 mg Q4H PRN PO MILD PAIN(1-3)OR ELEVATED TEMP Last administered on 06/23/19at 19:42; Admin Dose 650 MG; Start 06/22/19 at 20:00 Atorvastatin Calcium (Lipitor) 80 mg HS PO Last administered on 06/23/19 20:48; Admin Dose 80 MG; Start 06/22/19 at 21:00 Dorzolamide HCl (Trusopt) 1 drop TID BOTH EYES Last administered on 06/23/19 20:48; Admin Dose 1 DROP; Start 06/22/19 at 21:00 Insulin Aspart (Novolog Insulin Pen) NOVOLOG *MILD* ALGORITHM WITH MEALS BEDTIME SC ; Start 06/22/19 at 21:00 Meclizine HCl (Antivert) 12.5 mg TID PO Last administered on 06/23/19at 20:48; Admin Dose 12.5 MG; Start 06/22/19 at 21:00 Metoprolol Succinate (Toprol Xl) 25 mg DAILY PO Last administered on 06/23/19at 08:41; Admin Dose 25 MG; Start 06/23/19 at 09:00 Ondansetron HCl (Zofran Inj) 4 mg Q4H PRN IV NAUSEA AND/OR VOMITING; Start 06/22/19 at 20:00 Nitroglycerin (Nitroglycerin (Sl Tab) 0.4 Mg) 1 tab Q5M PRN SL ANGINA; Start 06/22/19 at 20:00 Hydralazine HCl (Apresoline) 25 mg Q6 PRN PO ELEVATED BLOOD PRESSURE; Start 06/22/19 at 20:00 Miscellaneous Information 1 ea NOTE XX ; Start 06/22/19 at 20:30 Glucose (Glutose) 15 gm Q15M PRN PO DECREASED GLUCOSE; Start 06/22/19 at 20:30 Glucose (Glutose) 22.5 gm Q15M PRN PO DECREASED GLUCOSE; Start 06/22/19 at 20:30 Dextrose (D50w Syringe) 25 ml Q15M PRN IV DECREASED GLUCOSE; Start 06/22/19 at 20:30 Dextrose (D50w Syringe) 50 ml Q15M PRN IV DECREASED GLUCOSE; Start 06/22/19 at 20:30 Glucagon (Glucagen) 1 mg Q15M PRN IM DECREASED GLUCOSE; Start 06/22/19 at 20:30 Glucose (Glutose) 15 gm Q15M PRN BUCCAL DECREASED GLUCOSE; Start 06/22/19 at 20:30 Aspirin (Halfprin) 81 mg DAILY PO Last administered on 06/23/19at 08:41; Admin Dose 81 MG; Start 06/23/19 at 09:00 Diphenhydramine HCl (Benadryl) 25 mg Q6H PRN PO ITCHING; Start 06/22/19 at 20:00 Levothyroxine Sodium (Synthroid) 50 mcg DAILY@06 PO Last administered on 06/24/19at 06:25; Admin Dose 50 MCG; Start 06/23/19 at 06:00 Metformin HCl (Glucophage) 1,000 mg WITH BREAKFAST DINNE PO Last administered on 06/24/19at 08:00; Admin Dose 1,000 MG; Start 06/23/19 at 07:35 Diagnostic Test (Pha) (Accu-Chek) 1 ea AC MEALS AND BEDTIME XX Last administered on 06/22/19at 21:00; Admin Dose 1 EA; Start 06/22/19 at 21:00 Assessment/Plan Additional Assessment/Plan 1. R CVA CONT THERAPEUTIC INTERVENTIONS DISCUSSED WITH PT. ASA DAILY 2. Diabetes mellitus.MAINTAIN BS <150 3. Hypothyroidism. 4. Cardiomyopathy. 5. Hyperlipidemia. 6. Dysphagia 7. I mpairments in self-care and mobilit 8. HTN DENIS RUCKER MD Jun 24, 2019 08:37
[2019-06-24] MEDS ORDERED: POTASSIUM CHLORIDE (SR) 20 MEQ TAB PO STA (08:57)
[2019-06-24] MEDS: MECLIZINE 12.5 MG TAB PO SCH ×3 (09:29→20:51)
[2019-06-24] MEDS: LIDOCAINE 5% PATCH TD SCH (09:29)
[2019-06-24] MEDS: DORZOLAMIDE 2% 10 ML OPH BOTH EYES SCH ×3 (09:29→20:51)
[2019-06-24] MEDS: DOCUSATE SODIUM 100 MG CAP PO SCH ×2 (09:31→20:51)
[2019-06-24] MEDS: ASPIRIN (EC) 81 MG TAB PO SCH (09:31)
[2019-06-24] MEDS: METOPROLOL (XL) 25 MG TAB PO SCH (09:31)
[2019-06-24] MEDS: ACETAMINOPHEN 325 MG TAB PO PRN (09:31)
[2019-06-24 14:00] VITALS: BP 125/67; PULSE 82; RESP 18
--- NOTE | 2019-06-24 14:07 | CONS ---
Assessment/Plan Assessment/Plan Hospital Course (Demo Recall) IMPRESSION: 1. Chest pain, assess for acute coronary syndrome, somewhat vague description described as a cramping sensation with a cath no significant obstructive disease in 2017.-neg trop x 3 2. Hypertension-reasonable control 3. Dyslipidemia. 4. CVA, acute with ongoing left upper extremity and lower extremity weakness.- seen by HEad CT as well, strength improving in RUE/RLE 5. Hypothyroidism. 6. Diabetes mellitus. Recc: -Now transferred to rehab -Continue asa/statin -Contineu toprol xl at current dose for now and follow BP closely -PT/OT Consultation Date/Type/Reason Admit Date/Time Jun 22, 2019 at 18:34 Initial Consult Date 06/23/19 Type of Consult Cardiology Reason for Consultation chest pain Requesting Provider: SHAYY SERRA MD Date/Time of Note DATE: 06/24/19 TIME: 14:06 Exam/Review of Systems Vital Signs Vitals Vital Signs Date Temp Pulse Resp B/P (MAP) Pulse Ox O2 O2 Flow FiO2 Time Delivery Rate 06/24/19 97.7 64 18 121/70 99 Room Air 07:00 (87) Intake and Output 06/23/19 06/23/19 06/24/19 1515:00 23:00 07:00 IntakeIntake Total 1000 ml 600 ml BalanceBalance 1000 ml 600 ml Exam Exam Review of Systems: CONSTITUTIONAL: No fevers, chills. PULMONARY: No sob CARDIOVASCULAR: No chest pain/palpitations GASTROINTESTINAL: No nausea/vomiting. GENITOURINARY: No hematuria/dysuria. MUSCULOSKELETAL: No myagias/arthalgias. PSYCHIATRIC: The patient denies depression. NEUROLOGIC: No weakness Constitutional: alert Psych: no complaints Head: normocephalic ENMT: mucosa pink and moist Neck: supple, jvd (9 cm water) Respiratory: clear to auscultation Cardiovascular: regular rate and rhythm Gastrointestinal: soft, non-tender Musculoskeletal: muscle weakness (focal) Neurological: focal weakness (LUE/LLE) Labs Result Diagram: 06/23/19 0555 06/23/19 0555 Results 24hrs Laboratory Tests Test 06/23/19 17:17 06/23/19 20:47 06/24/19 07:54 06/24/19 11:47 Bedside Glucose 90 99 91 70 Medications Medications Current Medications Docusate Sodium (Colace) 100 mg BID PO Last administered on 06/24/19 09:31; Admin Dose 100 MG; Start 06/22/19 at 21:00 Senna (Senokot) 1 tab HS PO ; Start 06/22/19 at 21:00 Magnesium Hydroxide (Milk Of Mag) 30 ml BID PRN PO CONSTIPATION; Start 06/22/19 at 19:00 Lactulose (Enulose) 20 gm DAILY PRN PO CONSTIPATION; Start 06/22/19 at 19:00 Bisacodyl (Dulcolax Supp) 10 mg DAILY PRN [place] CONSTIPATION; Start 06/22/19 at 19:00 Miscellaneous Information (Pending [facility] Order For Wound Care) This patient ltot... PRN PRN XX WOUND CARE; Start 06/22/19 at 19:00 Acetaminophen (Tylenol Tab) 650 mg Q4H PRN PO MILD PAIN(1-3)OR ELEVATED TEMP Last administered on 06/24/19 09:31; Admin Dose 650 MG; Start 06/22/19 at 20:00 Atorvastatin Calcium (Lipitor) 80 mg HS PO Last administered on 06/23/19at 20:48; Admin Dose 80 MG; Start 06/22/19 at 21:00 Dorzolamide HCl (Trusopt) 1 drop TID BOTH EYES Last administered on 06/24/19at 11:52; Admin Dose 1 DROP; Start 06/22/19 at 21:00 Insulin Aspart (Novolog Insulin Pen) NOVOLOG *MILD* ALGORITHM WITH MEALS BEDTIME SC ; Start 06/22/19 at 21:00 Meclizine HCl (Antivert) 12.5 mg TID PO Last administered on 06/24/19at 11:51; Admin Dose 12.5 MG; Start 06/22/19 at 21:00 Metoprolol Succinate (Toprol Xl) 25 mg DAILY PO Last administered on 06/24/19 09:31; Admin Dose 25 MG; Start 06/23/19 at 09:00 Ondansetron HCl (Zofran Inj) 4 mg Q4H PRN IV NAUSEA AND/OR VOMITING; Start 06/22/19 at 20:00 Nitroglycerin (Nitroglycerin (Sl Tab) 0.4 Mg) 1 tab Q5M PRN SL ANGINA; Start 06/22/19 at 20:00 Hydralazine HCl (Apresoline) 25 mg Q6 PRN PO ELEVATED BLOOD PRESSURE; Start 06/22/19 at 20:00 Miscellaneous Information 1 ea NOTE XX ; Start 06/22/19 at 20:30 Glucose (Glutose) 15 gm Q15M PRN PO DECREASED GLUCOSE; Start 06/22/19 at 20:30 Glucose (Glutose) 22.5 gm Q15M PRN PO DECREASED GLUCOSE; Start 06/22/19 at 20:30 Dextrose (D50w Syringe) 25 ml Q15M PRN IV DECREASED GLUCOSE; Start 06/22/19 at 20:30 Dextrose (D50w Syringe) 50 ml Q15M PRN IV DECREASED GLUCOSE; Start 06/22/19 at 20:30 Glucagon (Glucagen) 1 mg Q15M PRN IM DECREASED GLUCOSE; Start 06/22/19 at 20:30 Glucose (Glutose) 15 gm Q15M PRN BUCCAL DECREASED GLUCOSE; Start 06/22/19 at 20:30 Aspirin (Halfprin) 81 mg DAILY PO Last administered on 06/24/19at 09:31; Admin Dose 81 MG; Start 06/23/19 at 09:00 Diphenhydramine HCl (Benadryl) 25 mg Q6H PRN PO ITCHING; Start 06/22/19 at 20:00 Levothyroxine Sodium (Synthroid) 50 mcg DAILY@06 PO Last administered on 06/24/19at 06:25; Admin Dose 50 MCG; Start 06/23/19 at 06:00 Metformin HCl (Glucophage) 1,000 mg WITH BREAKFAST DINNE PO Last administered on 06/24/19at 08:00; Admin Dose 1,000 MG; Start 06/23/19 at 07:35 Diagnostic Test (Pha) (Accu-Chek) 1 ea AC MEALS AND BEDTIME XX Last administered on 06/22/19at 21:00; Admin Dose 1 EA; Start 06/22/19 at 21:00 Lidocaine (Lidoderm) 1 patch DAILY TD Last administered on 06/24/19at 09:29; Admin Dose 1 PATCH; Start 06/24/19 at 09:00 HILARIA WINSTON Jun 24, 2019 14:07
--- NOTE | 2019-06-24 15:55 | PN ---
Date/Time of Note Date/Time of Note DATE: 06/24/19 TIME: 15:55 Assessment/Plan VTE Prophylaxis Risk score (from Ns)>0 risk: 2 SCD applied (from [facility] [place]): No SCD contraindicated: other Pharmacological prophylaxis: other Pharm contraindication: other Lines/Catheters IV Catheter Type (from [facility] [place] Urinary Cath still in place: No Assessment/Plan Assessment/Plan -Dizziness,improved, continue meclizine.repeat CT of the brain with no evidence for hemorrhagic transformation of the evolving acute to subacute ischemic right posterior frontal, parietal and occipital lobe infarcts. -Acute stroke with residual left-sided weakness. Continue aspirin and Lipitor. Continue PT OT. Dr. Bailey is following in neurology consultation. -Dizziness continue meclizine as needed. Repeat CT of the brain with no evidence for hemorrhagic transformation of the evolving acute to subacute ischemic right posterior frontal, parietal and occipital lobe infarcts. -Cardiomyopathy. 2D echo with preserved ejection fraction. Dr. Aggarwal is following in cardiology consultation. -Diabetes mellitus type 2 with hemoglobin A1c of 6.5, continue metformin and NovoLog per mild algorithm sliding scale. -Hypertension, continue metoprolol. -Hypothyroidism, continue levothyroxine. -Hyperlipidemia, continue Lipitor. Further recommendations based on clinical course. Plan of care discussed with Dr. Stevenson. Result Diagram: 06/23/19 0555 06/23/19 0555 Results 24hrs Laboratory Tests Test 06/23/19 17:17 06/23/19 20:47 06/24/19 07:54 06/24/19 11:47 Bedside Glucose 90 99 91 70 Subjective 24 Hr Interval Summary Free Text/Dictation - denies any chest pain - c/o RUE/LUE weakness but its improving - cont PT as tolerated - speech clear - no events overnight Eyes: no complaints ENT: no complaints Respiratory: no complaints Cardiovascular: no complaints Gastrointestinal: no complaints Genitourinary: no complaints Musculoskeletal: no complaints Skin: no complaints Neurologic: focal-weakness (RUE/LUE) Psychological: no complaints Immunologic: no complaints Exam/Review of Systems Exam Vitals Vital Signs Date Temp Pulse Resp B/P (MAP) Pulse Ox O2 O2 Flow FiO2 Time Delivery Rate 06/24/19 97.7 64 18 121/70 99 Room Air 07:00 (87) Intake and Output 06/23/19 06/23/1919 1515:00 23:00 07:00 IntakeIntake Total 1000 ml 600 ml BalanceBalance 1000 ml 600 ml Constitutional: alert, well developed Psych: nl mood/affect Head: normocephalic Eyes: nl lids, nl sclera ENMT: nl external ears & nose Neck: non-tender Respiratory: clear to auscultation Cardiovascular: nl pulses, other (s1s2) Gastrointestinal: soft, non-tender Musculoskeletal: nl extremities to inspection Extremities: normal pulses Neurological: nl speech, focal weakness (RUE/LUE- ), other (alert/responsive) Skin: other (no skin rash noted) Lymph: nontender Results Results 24hrs Laboratory Tests Test 06/23/19 17:17 06/23/19 20:47 06/24/19 07:54 06/24/19 11:47 Bedside Glucose 90 99 91 70 Medications Medication Current Medications Docusate Sodium (Colace) 100 mg BID PO Last administered on 06/24/19 09:31; Admin Dose 100 MG; Start 06/22/19 at 21:00 Senna (Senokot) 1 tab HS PO ; Start 06/22/19 at 21:00 Magnesium Hydroxide (Milk Of Mag) 30 ml BID PRN PO CONSTIPATION; Start 06/22/19 at 19:00 Lactulose (Enulose) 20 gm DAILY PRN PO CONSTIPATION; Start 06/22/19 at 19:00 Bisacodyl (Dulcolax Supp) 10 mg DAILY PRN [place] CONSTIPATION; Start 06/22/19 at 19:00 Miscellaneous Information (Pending [facility] Order For Wound Care) This patient lott... PRN PRN XX WOUND CARE; Start 06/22/19 at 19:00 Acetaminophen (Tylenol Tab) 650 mg Q4H PRN PO MILD PAIN(1-3)OR ELEVATED TEMP Last administered on 06/24/19at 09:31; Admin Dose 650 MG; Start 06/22/19 at 20:00 Atorvastatin Calcium (Lipitor) 80 mg HS PO Last administered on 06/23/19at 20:48; Admin Dose 80 MG; Start 06/22/19 at 21:00 Dorzolamide HCl (Trusopt) 1 drop TID BOTH EYES Last administered on 06/24/19at 11:52; Admin Dose 1 DROP; Start 06/22/19 at 21:00 Insulin Aspart (Novolog Insulin Pen) NOVOLOG *MILD* ALGORITHM WITH MEALS BEDTIME SC ; Start 06/22/19 at 21:00 Meclizine HCl (Antivert) 12.5 mg TID PO Last administered on 06/24/19at 11:51; Admin Dose 12.5 MG; Start 06/22/19 at 21:00 Metoprolol Succinate (Toprol Xl) 25 mg DAILY PO Last administered on 06/24/19at 09:31; Admin Dose 25 MG; Start 06/23/19 at 09:00 Ondansetron HCl (Zofran Inj) 4 mg Q4H PRN IV NAUSEA AND/OR VOMITING; Start 06/22/19 at 20:00 Nitroglycerin (Nitroglycerin (Sl Tab) 0.4 Mg) 1 tab Q5M PRN SL ANGINA; Start 06/22/19 at 20:00 Hydralazine HCl (Apresoline) 25 mg Q6 PRN PO ELEVATED BLOOD PRESSURE; Start 06/22/19 at 20:00 Miscellaneous Information 1 ea NOTE XX ; Start 06/22/19 at 20:30 Glucose (Glutose) 15 gm Q15M PRN PO DECREASED GLUCOSE; Start 06/22/19 at 20:30 Glucose (Glutose) 22.5 gm Q15M PRN PO DECREASED GLUCOSE; Start 06/22/19 at 20:30 Dextrose (D50w Syringe) 25 ml Q15M PRN IV DECREASED GLUCOSE; Start 06/22/19 at 20:30 Dextrose (D50w Syringe) 50 ml Q15M PRN IV DECREASED GLUCOSE; Start 06/22/19 at 20:30 Glucagon (Glucagen) 1 mg Q15M PRN IM DECREASED GLUCOSE; Start 06/22/19 at 20:30 Glucose (Glutose) 15 gm Q15M PRN BUCCAL DECREASED GLUCOSE; Start 06/22/19 at 20:30 Aspirin (Halfprin) 81 mg DAILY PO Last administered on 06/24/19at 09:31; Admin Dose 81 MG; Start 06/23/19 at 09:00 Diphenhydramine HCl (Benadryl) 25 mg Q6H PRN PO ITCHING; Start 06/22/19 at 20:00 Levothyroxine Sodium (Synthroid) 50 mcg DAILY@06 PO Last administered on 06/24/19at 06:25; Admin Dose 50 MCG; Start 06/23/19 at 06:00 Metformin HCl (Glucophage) 1,000 mg WITH BREAKFAST DINNE PO Last administered on 06/24/19 08:00; Admin Dose 1,000 MG; Start 06/23/19 at 07:35 Diagnostic Test (Pha) (Accu-Chek) 1 ea AC MEALS AND BEDTIME XX Last administered on 06/22/19 21:00; Admin Dose 1 EA; Start 06/22/19 at 21:00 Lidocaine (Lidoderm) 1 patch DAILY TD Last administered on 06/24/19 09:29; Admin Dose 1 PATCH; Start 06/24/19 at 09:00 LULU PARRISH Jun 24, 2019 15:55
[2019-06-24 20:00] VITALS: BP 142/81; PULSE 87; RESP 17
[2019-06-24] MEDS: ATORVASTATIN 80 MG TAB PO SCH (20:51)
[2019-06-24] MEDS: SENNA TAB PO SCH (20:51)
[2019-06-25 02:00] VITALS: BP 117/64; PULSE 76; RESP 18
[2019-06-25] MEDS: LEVOTHYROXINE 50 MCG TAB PO SCH (06:20)
[2019-06-25 07:21] VITALS: BP 124/75; PULSE 73; RESP 18
[2019-06-25] MEDS: INSULIN ASPART [NOVOLOG] 3 ML PEN SC SCH ×4 (07:35→20:36)
[2019-06-25] MEDS: metFORMIN 500 MG TAB PO SCH ×2 (07:51→17:19)
[2019-06-25] MEDS: ACCU-CHEK XX SCH ×4 (07:53→20:40)
[2019-06-25] MEDS: MECLIZINE 12.5 MG TAB PO SCH (09:00)
[2019-06-25] MEDS: DOCUSATE SODIUM 100 MG CAP PO SCH ×2 (09:00→20:36)
[2019-06-25] MEDS: LIDOCAINE 5% PATCH TD SCH (09:00)
[2019-06-25] MEDS: DORZOLAMIDE 2% 10 ML OPH BOTH EYES SCH ×3 (09:02→20:36)
[2019-06-25] MEDS: METOPROLOL (XL) 25 MG TAB PO SCH (09:03)
[2019-06-25] MEDS: ASPIRIN (EC) 81 MG TAB PO SCH (09:03)
[2019-06-25] MEDS ORDERED: MECLIZINE 12.5 MG TAB PO PRN (09:30)
--- NOTE | 2019-06-25 09:49 | PN ---
Date/Time of Note Date/Time of Note DATE: 06/25/19 TIME: 09:48 Subjective AWAKE ALERT , NO C/O FEELING STRONGER Objective Vital Signs Date Temp Pulse Resp B/P (MAP) Pulse Ox O2 O2 Flow FiO2 Time Delivery Rate 06/25/19 98.0 73 18 124/75 94 Room Air 07:21 (91) Intake and Output 06/24/19 06/24/19 06/25/19 1515:00 23:00 07:00 IntakeIntake Total 850 ml 1400 ml 700 ml OutputOutput Total 600 ml BalanceBalance 850 ml 800 ml 700 ml Exam LUNGS CTA COR RRR - HOMANS MILD /MOD R LANA CLOF BED MOB, XT AND GAIT SOURAV Results/Medications Result Diagram: 06/23/1955406/23/19 0555 Results 24 hrs Laboratory Tests Test 06/24/19 11:47 06/24/19 17:22 06/24/19 20:50 06/25/19 07:48 Bedside Glucose 70 98 124 97 Medications Current Medications Docusate Sodium (Colace) 100 mg BID PO Last administered on 06/24/19at 20:51; Admin Dose 100 MG; Start 06/22/19 at 21:00 Senna (Senokot) 1 tab HS PO Last administered on 06/24/19 20:51; Admin Dose 1 TAB; Start 06/22/19 at 21:00 Magnesium Hydroxide (Milk Of Mag) 30 ml BID PRN PO CONSTIPATION; Start 06/22/19 at 19:00 Lactulose (Enulose) 20 gm DAILY PRN PO CONSTIPATION; Start 06/22/19 at 19:00 Bisacodyl (Dulcolax Supp) 10 mg DAILY PRN NE CONSTIPATION; Start 06/22/19 at 19:00 Miscellaneous Information (Pending [facility] Order For Wound Care) This patient lott... PRN PRN XX WOUND CARE; Start 06/22/19 at 19:00 Acetaminophen (Tylenol Tab) 650 mg Q4H PRN PO MILD PAIN(1-3)OR ELEVATED TEMP Last administered on 06/24/19at 09:31; Admin Dose 650 MG; Start 06/22/19 at 20:00 Atorvastatin Calcium (Lipitor) 80 mg HS PO Last administered on 06/24/19at 20:51; Admin Dose 80 MG; Start 06/22/19 at 21:00 Dorzolamide HCl (Trusopt) 1 drop TID BOTH EYES Last administered on 06/25/19at 09:02; Admin Dose 1 DROP; Start 06/22/19 at 21:00 Insulin Aspart (Novolog Insulin Pen) NOVOLOG *MILD* ALGORITHM WITH MEALS BE DTIME SC ; Start 06/22/19 at 21:00 Metoprolol Succinate (Toprol Xl) 25 mg DAILY PO Last administered on 06/25/19at 09:03; Admin Dose 25 MG; Start 06/23/19 at 09:00 Ondansetron HCl (Zofran Inj) 4 mg Q4H PRN IV NAUSEA AND/OR VOMITING; Start 06/22/19 at 20:00 Nitroglycerin (Nitroglycerin (Sl Tab) 0.4 Mg) 1 tab Q5M PRN SL ANGINA; Start 06/22/19 at 20:00 Hydralazine HCl (Apresoline) 25 mg Q6 PRN PO ELEVATED BLOOD PRESSURE; Start 06/22/19 at 20:00 Miscellaneous Information 1 ea NOTE XX ; Start 06/22/19 at 20:30 Glucose (Glutose) 15 gm Q15M PRN PO DECREASED GLUCOSE; Start 06/22/19 at 20:30 Glucose (Glutose) 22.5 gm Q15M PRN PO DECREASED GLUCOSE; Start 06/22/19 at 20:30 Dextrose (D50w Syringe) 25 ml Q15M PRN IV DECREASED GLUCOSE; Start 06/22/19 at 20:30 Dextrose (D50w Syringe) 50 ml Q15M PRN IV DECREASED GLUCOSE; Start 06/22/19 at 20:30 Glucagon (Glucagen) 1 mg Q15M PRN IM DECREASED GLUCOSE; Start 06/22/19 at 20:30 Glucose (Glutose) 15 gm Q15M PRN BUCCAL DECREASED GLUCOSE; Start 06/22/19 at 20:30 Aspirin (Halfprin) 81 mg DAILY PO Last administered on 06/25/19at 09:03; Admin Dose 81 MG; Start 06/23/19 at 09:00 Diphenhydramine HCl (Benadryl) 25 mg Q6H PRN PO ITCHING; Start 06/22/19 at 20:00 Levothyroxine Sodium (Synthroid) 50 mcg DAILY@06 PO Last administered on 06/25/19at 06:20; Admin Dose 50 MCG; Start 06/23/19 at 06:00 Metformin HCl (Glucophage) 1,000 mg WITH BREAKFAST DINNE PO Last administered on 06/25/19at 07:51; Admin Dose 1,000 MG; Start 06/23/19 at 07:35 Diagnostic Test (Pha) (Accu-Chek) 1 ea AC MEALS AND BEDTIME XX Last administered on 06/25/19at 07:53; Admin Dose 1 EA; Start 06/22/19 at 21:00 Lidocaine (Lidoderm) 1 patch DAILY TD Last administered on 06/24/19at 09:29; Admin Dose 1 PATCH; Start 06/24/19 at 09:00 Meclizine HCl (Antivert) 12.5 mg TID PRN PO NAUSEA AND/OR VOMITING; Start 06/25/19 at 09:30 Assessment/Plan Additional Assessment/Plan 1. R CVA CONT THERAPEUTIC INTERVENTIONS DISCUSSED WITH PT. ASA DAILY 2. Diabetes mellitus.MAINTAIN BS <150 3. Hypothyroidism. 4. Cardiomyopathy. 5. Hyperlipidemia. 6. Dysphagia 7. I mpairments in self-care and mobility 8. HTN CONTROLLED DENIS RUCKER MD Jun 25, 2019 09:49
--- NOTE | 2019-06-25 12:40 | PN ---
Date/Time of Note Date/Time of Note DATE: 06/25/19 TIME: 12:40 Assessment/Plan VTE Prophylaxis Risk score (from Ns)>0 risk: 4 SCD applied (from Ns): Yes Pharmacological prophylaxis: LMWH Lines/Catheters Urinary Cath still in place: No Assessment/Plan Hospital Course -Dizziness,improved, continue meclizine.repeat CT of the brain with no evidence for hemorrhagic transformation of the evolving acute to subacute ischemic right posterior frontal, parietal and occipital lobe infarcts. -Acute stroke with residual left-sided weakness. Continue aspirin and Lipitor. Continue PT OT. Dr. Bailey is following in neurology consultation. -Dizziness continue meclizine as needed. Repeat CT of the brain with no evidence for hemorrhagic transformation of the evolving acute to subacute ischemic right posterior frontal, parietal and occipital lobe infarcts. -Cardiomyopathy. 2D echo with preserved ejection fraction. Dr. Aggarwal is following in cardiology consultation. -Diabetes mellitus type 2 with hemoglobin A1c of 6.5, continue metformin and NovoLog per mild algorithm sliding scale. -Hypertension, continue metoprolol. -Hypothyroidism, continue levothyroxine. -Hyperlipidemia, continue Lipitor. Result Diagram: 06/23/19 0555 06/23/19 0555 Results 24hrs Laboratory Tests Test 06/24/19 17:22 06/24/19 20:50 06/25/19 07:48 06/25/19 11:52 Bedside Glucose 98 124 97 92 Subjective 24 Hr Interval Summary Free Text/Dictation Patient denies any pain. Exam/Review of Systems Exam Vitals Vital Signs Date Temp Pulse Resp B/P (MAP) Pulse Ox O2 O2 Flow FiO2 Time Delivery Rate 06/25/19 98.0 73 18 124/75 94 Room Air 07:21 (91) Intake and Output 06/24/19 06/24/19 06/25/19 1515:00 23:00 07:00 IntakeIntake Total 850 ml 1400 ml 700 ml OutputOutput Total 600 ml BalanceBalance 850 ml 800 ml 700 ml Constitutional: well developed Head: normocephalic, atraumatic Neck: supple Respiratory: clear to auscultation Cardiovascular: regular rate and rhythm Gastrointestinal: soft, non-tender Extremities: normal pulses Results Results 24hrs Laboratory Tests Test 06/24/19 17:22 06/24/19 20:50 06/25/19 07:48 06/25/19 11:52 Bedside Glucose 98 124 97 92 Medications Medication Current Medications Docusate Sodium (Colace) 100 mg BID PO Last administered on 06/24/19 20:51; Admin Dose 100 MG; Start 06/22/19 at 21:00 Senna (Senokot) 1 tab HS PO Last administered on 06/24/19 20:51; Admin Dose 1 TAB; Start 06/22/19 at 21:00 Magnesium Hydroxide (Milk Of Mag) 30 ml BID PRN PO CONSTIPATION; Start 06/22/19 at 19:00 Lactulose (Enulose) 20 gm DAILY PRN PO CONSTIPATION; Start 06/22/19 at 19:00 Bisacodyl (Dulcolax Supp) 10 mg DAILY PRN CO CONSTIPATION; Start 06/22/19 at 19:00 Miscellaneous Information (Pending [facility] Order For Wound Care) This patient lott... PRN PRN XX WOUND CARE; Start 06/22/19 at 19:00 Acetaminophen (Tylenol Tab) 650 mg Q4H PRN PO MILD PAIN(1-3)OR ELEVATED TEMP Last administered on 06/24/19at 09:31; Admin Dose 650 MG; Start 06/22/19 at 20:00 Atorvastatin Calcium (Lipitor) 80 mg HS PO Last administered on 06/24/19 20:51; Admin Dose 80 MG; Start 06/22/19 at 21:00 Dorzolamide HCl (Trusopt) 1 drop TID BOTH EYES Last administered on 06/25/19 09:02; Admin Dose 1 DROP; Start 06/22/19 at 21:00 Insulin Aspart (Novolog Insulin Pen) NOVOLOG *MILD* ALGORITHM WITH MEALS BEDTIME SC ; Start 06/22/19 at 21:00 Metoprolol Succinate (Toprol Xl) 25 mg DAILY PO Last administered on 06/25/19 09:03; Admin Dose 25 MG; Start 06/23/19 at 09:00 Ondansetron HCl (Zofran Inj) 4 mg Q4H PRN IV NAUSEA AND/OR VOMITING; Start 06/22/19 at 20:00 Nitroglycerin (Nitroglycerin (Sl Tab) 0.4 Mg) 1 tab Q5M PRN SL ANGINA; Start 06/22/19 at 20:00 Hydralazine HCl (Apresoline) 25 mg Q6 PRN PO ELEVATED BLOOD PRESSURE; Start 06/22/19 at 20:00 Miscellaneous Information 1 ea NOTE XX ; Start 06/22/19 at 20:30 Glucose (Glutose) 15 gm Q15M PRN PO DECREASED GLUCOSE; Start 06/22/19 at 20:30 Glucose (Glutose) 22.5 gm Q15M PRN PO DECREASED GLUCOSE; Start 06/22/19 at 20:30 Dextrose (D50w Syringe) 25 ml Q15M PRN IV DECREASED GLUCOSE; Start 06/22/19 at 20:30 Dextrose (D50w Syringe) 50 ml Q15M PRN IV DECREASED GLUCOSE; Start 06/22/19 at 20:30 Glucagon (Glucagen) 1 mg Q15M PRN IM DECREASED GLUCOSE; Start 06/22/19 at 20:30 Glucose (Glutose) 15 gm Q15M PRN BUCCAL DECREASED GLUCOSE; Start 06/22/19 at 20:30 Aspirin (Halfprin) 81 mg DAILY PO Last administered on 06/25/19 09:03; Admin Dose 81 MG; Start 06/23/19 at 09:00 Diphenhydramine HCl (Benadryl) 25 mg Q6H PRN PO ITCHING; Start 06/22/19 at 20:00 Levothyroxine Sodium (Synthroid) 50 mcg DAILY@06 PO Last administered on 06/25/19at 06:20; Admin Dose 50 MCG; Start 06/23/19 at 06:00 Metformin HCl (Glucophage) 1,000 mg WITH BREAKFAST DINNE PO Last administered on 06/25/19at 07:51; Admin Dose 1,000 MG; Start 06/23/19 at 07:35 Diagnostic Test (Pha) (Accu-Chek) 1 ea AC MEALS AND BEDTIME XX Last administered on 06/25/19at 11:54; Admin Dose 1 EA; Start 06/22/19 at 21:00 Lidocaine (Lidoderm) 1 patch DAILY TD Last administered on 06/24/19at 09:29; Admin Dose 1 PATCH; Start 06/24/19 at 09:00 Meclizine HCl (Antivert) 12.5 mg TID PRN PO NAUSEA AND/OR VOMITING; Start 06/25/19 at 09:30 KENYATTA MUÑOZ Jun 25, 2019 12:40
[2019-06-25 13:19] VITALS: BP 135/88; PULSE 84; RESP 18
--- NOTE | 2019-06-25 16:33 | CONS ---
Assessment/Plan Assessment/Plan Hospital Course (Demo Recall) IMPRESSION: 1. Chest pain, assess for acute coronary syndrome, somewhat vague description described as a cramping sensation with a cath no significant obstructive disease in 2017.-neg trop x 3 2. Hypertension-reasonable control 3. Dyslipidemia. 4. CVA, acute with ongoing left upper extremity and lower extremity weakness.- seen by HEad CT as well, strength improving in RUE/RLE 5. Hypothyroidism. 6. Diabetes mellitus. Recc: -Now transferred to rehab -Continue asa/statin -Contineu toprol xl at current dose for now and follow BP closely -PT/OT Consultation Date/Type/Reason Admit Date/Time Jun 22, 2019 at 18:34 Initial Consult Date 06/23/19 Type of Consult Cardiology Reason for Consultation chest pain Requesting Provider: SHAYY SERRA MD Date/Time of Note DATE: 06/25/19 TIME: 16:32 Exam/Review of Systems Vital Signs Vitals Vital Signs Date Temp Pulse Resp B/P (MAP) Pulse Ox O2 O2 Flow FiO2 Time Delivery Rate 06/25/19 98.2 84 18 135/88 96 Room Air 13:19 (104) Intake and Output 06/24/19 06/24/19 06/25/19 1515:00 23:00 07:00 IntakeIntake Total 850 ml 1400 ml 700 ml OutputOutput Total 600 ml BalanceBalance 850 ml 800 ml 700 ml Exam Exam Review of Systems: CONSTITUTIONAL: No fevers, chills. PULMONARY: No sob CARDIOVASCULAR: No chest pain/palpitations GASTROINTESTINAL: No nausea/vomiting. GENITOURINARY: No hematuria/dysuria. MUSCULOSKELETAL: No myagias/arthalgias. PSYCHIATRIC: The patient denies depression. NEUROLOGIC: No weakness Constitutional: alert, oriented Psych: no complaints Head: normocephalic ENMT: mucosa pink and moist Neck: supple, jvd (9 cm water) Respiratory: diminished breath sounds Cardiovascular: regular rate and rhythm Gastrointestinal: soft, non-tender Musculoskeletal: muscle weakness (LUE/LLE) Extremities: edema (none) Labs Result Diagram: 06/23/19 0555 06/23/19 0555 Results 24hrs Laboratory Tests Test 06/24/19 17:22 06/24/19 20:50 06/25/19 07:48 06/25/19 11:52 Bedside Glucose 98 124 97 92 Medications Medications Current Medications Docusate Sodium (Colace) 100 mg BID PO Last administered on 06/24/19 20:51; A dmin Dose 100 MG; Start 06/22/19 at 21:00 Senna (Senokot) 1 tab HS PO Last administered on 06/24/19 20:51; Admin Dose 1 TAB; Start 06/22/19 at 21:00 Magnesium Hydroxide (Milk Of Mag) 30 ml BID PRN PO CONSTIPATION; Start 06/22/19 at 19:00 Lactulose (Enulose) 20 gm DAILY PRN PO CONSTIPATION; Start 06/22/19 at 19:00 Bisacodyl (Dulcolax Supp) 10 mg DAILY PRN ID CONSTIPATION; Start 06/22/19 at 19:00 Miscellaneous Information (Pending [facility] Order For Wound Care) This patient lott... PRN PRN XX WOUND CARE; Start 06/22/19 at 19:00 Acetaminophen (Tylenol Tab) 650 mg Q4H PRN PO MILD PAIN(1-3)OR ELEVATED TEMP Last administered on 06/24/19at 09:31; Admin Dose 650 MG; Start 06/22/19 at 20:00 Atorvastatin Calcium (Lipitor) 80 mg HS PO Last administered on 06/24/19 20:51; Admin Dose 80 MG; Start 06/22/19 at 21:00 Dorzolamide HCl (Trusopt) 1 drop TID BOTH EYES Last administered on 06/25/19at 13:05; Admin Dose 1 DROP; Start 06/22/19 at 21:00 Insulin Aspart (Novolog Insulin Pen) NOVOLOG *MILD* ALGORITHM WITH MEALS BEDTIME SC ; Start 06/22/19 at 21:00 Metoprolol Succinate (Toprol Xl) 25 mg DAILY PO Last administered on 06/25/19 09:03; Admin Dose 25 MG; Start 06/23/19 at 09:00 Ondansetron HCl (Zofran Inj) 4 mg Q4H PRN IV NAUSEA AND/OR VOMITING; Start 06/22/19 at 20:00 Nitroglycerin (Nitroglycerin (Sl Tab) 0.4 Mg) 1 tab Q5M PRN SL ANGINA; Start 06/22/19 at 20:00 Hydralazine HCl (Apresoline) 25 mg Q6 PRN PO ELEVATED BLOOD PRESSURE; Start 06/22/19 at 20:00 Miscellaneous Information 1 ea NOTE XX ; Start 06/22/19 at 20:30 Glucose (Glutose) 15 gm Q15M PRN PO DECREASED GLUCOSE; Start 06/22/19 at 20:30 Glucose (Glutose) 22.5 gm Q15M PRN PO DECREASED GLUCOSE; Start 06/22/19 at 20:30 Dextrose (D50w Syringe) 25 ml Q15M PRN IV DECREASED GLUCOSE; Start 06/22/19 at 20:30 Dextrose (D50w Syringe) 50 ml Q15M PRN IV DECREASED GLUCOSE; Start 06/22/19 at 20:30 Glucagon (Glucagen) 1 mg Q15M PRN IM DECREASED GLUCOSE; Start 06/22/19 at 20:30 Glucose (Glutose) 15 gm Q15M PRN BUCCAL DECREASED GLUCOSE; Start 06/22/19 at 20:30 Aspirin (Halfprin) 81 mg DAILY PO Last administered on 06/25/19at 09:03; Admin Dose 81 MG; Start 06/23/19 at 09:00 Diphenhydramine HCl (Benadryl) 25 mg Q6H PRN PO ITCHING; Start 06/22/19 at 20:00 Levothyroxine Sodium (Synthroid) 50 mcg DAILY@06 PO Last administered on 06/25/19at 06:20; Admin Dose 50 MCG; Start 06/23/19 at 06:00 Metformin HCl (Glucophage) 1,000 mg WITH BREAKFAST DINNE PO Last administered on 06/25/19at 07:51; Admin Dose 1,000 MG; Start 06/23/19 at 07:35 Diagnostic Test (Pha) (Accu-Chek) 1 ea AC MEALS AND BEDTIME XX Last administered on 06/25/19at 11:54; Admin Dose 1 EA; Start 06/22/19 at 21:00 Lidocaine (Lidoderm) 1 patch DAILY TD Last administered on 06/24/19at 09:29; Admin Dose 1 PATCH; Start 06/24/19 at 09:00 Meclizine HCl (Antivert) 12.5 mg TID PRN PO NAUSEA AND/OR VOMITING; Start 06/25/19 at 09:30 HILARIA WINSTON Jun 25, 2019 16:33
[2019-06-25] MEDS: ACETAMINOPHEN 325 MG TAB PO PRN (19:44)
[2019-06-25 20:19] VITALS: BP 120/65; PULSE 81; RESP 18
[2019-06-25] MEDS: SENNA TAB PO SCH (20:36)
[2019-06-25] MEDS: ATORVASTATIN 80 MG TAB PO SCH (20:36)
[2019-06-26] MEDS: LEVOTHYROXINE 50 MCG TAB PO SCH (06:15)
[2019-06-26] MEDS: ACETAMINOPHEN 325 MG TAB PO PRN (06:18)
[2019-06-26 07:00] VITALS: BP 120/78; PULSE 67; RESP 18
[2019-06-26] MEDS: ACCU-CHEK XX SCH ×4 (07:05→21:20)
[2019-06-26] MEDS: INSULIN ASPART [NOVOLOG] 3 ML PEN SC SCH ×4 (07:35→21:00)
[2019-06-26] MEDS: metFORMIN 500 MG TAB PO SCH ×2 (07:47→17:12)
[2019-06-26] MEDS: DOCUSATE SODIUM 100 MG CAP PO SCH ×2 (09:00→21:19)
[2019-06-26] MEDS: ASPIRIN (EC) 81 MG TAB PO SCH (09:38)
[2019-06-26] MEDS: DORZOLAMIDE 2% 10 ML OPH BOTH EYES SCH ×3 (09:38→21:19)
[2019-06-26] MEDS: METOPROLOL (XL) 25 MG TAB PO SCH (09:39)
[2019-06-26] MEDS: LIDOCAINE 5% PATCH TD SCH (09:40)
--- NOTE | 2019-06-26 12:31 | PN ---
Date/Time of Note Date/Time of Note DATE: 06/26/19 TIME: 12:30 Assessment/Plan VTE Prophylaxis Risk score (from Ns)>0 risk: 3 SCD applied (from [facility] [place]): No SCD contraindicated: other Pharmacological prophylaxis: LMWH Lines/Catheters Urinary Cath still in place: No Assessment/Plan Hospital Course -Dizziness,improved, continue meclizine.repeat CT of the brain with no evidence for hemorrhagic transformation of the evolving acute to subacute ischemic right posterior frontal, parietal and occipital lobe infarcts. -Acute stroke with residual left-sided weakness. Continue aspirin and Lipitor. Continue PT OT. Dr. Bailey is following in neurology consultation. -Dizziness continue meclizine as needed. Repeat CT of the brain with no evidence for hemorrhagic transformation of the evolving acute to subacute ischemic right posterior frontal, parietal and occipital lobe infarcts. -Cardiomyopathy. 2D echo with preserved ejection fraction. Dr. Aggarwal is following in cardiology consultation. -Diabetes mellitus type 2 with hemoglobin A1c of 6.5, continue metformin and NovoLog per mild algorithm sliding scale. -Hypertension, continue metoprolol. -Hypothyroidism, continue levothyroxine. -Hyperlipidemia, continue Lipitor. Result Diagram: 06/23/19 0555 06/23/19 0555 Results 24hrs Laboratory Tests Test 06/25/19 17:19 06/25/19 20:34 06/26/19 07:52 06/26/19 11:41 Bedside Glucose 101 96 94 86 Subjective 24 Hr Interval Summary Free Text/Dictation Patient not in room, most likely having rehab Exam/Review of Systems Exam Vitals Vital Signs Date Temp Pulse Resp B/P (MAP) Pulse Ox O2 O2 Flow FiO2 Time Delivery Rate 06/26/19 97.8 67 18 120/78 97 Room Air 07:00 (92) Intake and Output 06/25/19 06/25/19 06/26/19 1515:00 23:00 07:00 IntakeIntake Total 600 ml 960 ml BalanceBalance 600 ml 960 ml Exam Unable to examine as away from room Results Results 24hrs Laboratory Tests Test 06/25/19 17:19 06/25/19 20:34 06/26/19 07:52 06/26/19 11:41 Bedside Glucose 101 96 94 86 Medications Medication Current Medications Docusate Sodium (Colace) 100 mg BID PO Last administered on 06/25/19at 20:36; Admin Dose 100 MG; Start 06/22/19 at 21:00 Senna (Senokot) 1 tab HS PO Last administered on 06/25/19 20:36; Admin Dose 1 TAB; Start 06/22/19 at 21:00 Magnesium Hydroxide (Milk Of Mag) 30 ml BID PRN PO CONSTIPATION; Start 06/22/19 at 19:00 Lactulose (Enulose) 20 gm DAILY PRN PO CONSTIPATION; Start 06/22/19 at 19:00 Bisacodyl (Dulcolax Supp) 10 mg DAILY PRN IN CONSTIPATION; Start 06/22/19 at 19:00 Miscellaneous Information (Pending [facility] Order For Wound Care) This patient lott... PRN PRN XX WOUND CARE; Start 06/22/19 at 19:00 Acetaminophen (Tylenol Tab) 650 mg Q4H PRN PO MILD PAIN(1-3)OR ELEVATED TEMP Last administered on 06/26/19at 06:18; Admin Dose 650 MG; Start 06/22/19 at 20:00 Atorvastatin Calcium (Lipitor) 80 mg HS PO Last administered on 06/25/19 20:36; Admin Dose 80 MG; Start 06/22/19 at 21:00 Dorzolamide HCl (Trusopt) 1 drop TID BOTH EYES Last administered on 06/26/19 09:38; Admin Dose 1 DROP; Start 06/22/19 at 21:00 Insulin Aspart (Novolog Insulin Pen) NOVOLOG *MILD* ALGORITHM WITH MEALS BEDTIME SC ; Start 06/22/19 at 21:00 Metoprolol Succinate (Toprol Xl) 25 mg DAILY PO Last administered on 06/26/19at 09:39; Admin Dose 25 MG; Start 06/23/19 at 09:00 Ondansetron HCl (Zofran Inj) 4 mg Q4H PRN IV NAUSEA AND/OR VOMITING; Start 06/22/19 at 20:00 Nitroglycerin (Nitroglycerin (Sl Tab) 0.4 Mg) 1 tab Q5M PRN SL ANGINA; Start 06/22/19 at 20:00 Hydralazine HCl (Apresoline) 25 mg Q6 PRN PO ELEVATED BLOOD PRESSURE; Start 06/22/19 at 20:00 Miscellaneous Information 1 ea NOTE XX ; Start 06/22/19 at 20:30 Glucose (Glutose) 15 gm Q15M PRN PO DECREASED GLUCOSE; Start 06/22/19 at 20:30 Glucose (Glutose) 22.5 gm Q15M PRN PO DECREASED GLUCOSE; Start 06/22/19 at 20:30 Dextrose (D50w Syringe) 25 ml Q15M PRN IV DECREASED GLUCOSE; Start 06/22/19 at 20:30 Dextrose (D50w Syringe) 50 ml Q15M PRN IV DECREASED GLUCOSE; Start 06/22/19 at 20:30 Glucagon (Glucagen) 1 mg Q15M PRN IM DECREASED GLUCOSE; Start 06/22/19 at 20:30 Glucose (Glutose) 15 gm Q15M PRN BUCCAL DECREASED GLUCOSE; Start 06/22/19 at 20:30 Aspirin (Halfprin) 81 mg DAILY PO Last administered on 06/26/19 09:38; Admin Dose 81 MG; Start 06/23/19 at 09:00 Diphenhydramine HCl (Benadryl) 25 mg Q6H PRN PO ITCHING; Start 06/22/19 at 20:00 Levothyroxine Sodium (Synthroid) 50 mcg DAILY@06 PO Last administered on 06/26/19 06:15; Admin Dose 50 MCG; Start 06/23/19 at 06:00 Metformin HCl (Glucophage) 1,000 mg WITH BREAKFAST DINNE PO Last administered on 06/26/19 07:47; Admin Dose 1,000 MG; Start 06/23/19 at 07:35 Diagnostic Test (Pha) (Accu-Chek) 1 ea AC MEALS AND BEDTIME XX Last administered on 06/25/19at 20:40; Admin Dose 1 EA; Start 06/22/19 at 21:00 Lidocaine (Lidoderm) 1 patch DAILY TD Last administered on 06/26/19 09:40; Admin Dose 1 PATCH; Start 06/24/19 at 09:00 Meclizine HCl (Antivert) 12.5 mg TID PRN PO NAUSEA AND/OR VOMITING; Start 06/25/19 at 09:30 KENYATTA MUÑOZ Jun 26, 2019 12:31
--- NOTE | 2019-06-26 13:34 | CONS ---
Assessment/Plan Assessment/Plan Hospital Course (Demo Recall) IMPRESSION: 1. Chest pain, assess for acute coronary syndrome, somewhat vague description described as a cramping sensation with a cath no significant obstructive disease in 2017.-neg trop x 3 2. Hypertension-reasonable control 3. Dyslipidemia. 4. CVA, acute with ongoing left upper extremity and lower extremity weakness.- seen by HEad CT as well, strength improving in RUE/RLE 5. Hypothyroidism. 6. Diabetes mellitus. Recc: -Now transferred to rehab -Continue asa/statin -Contineu toprol xl at current dose for now and follow BP closely -PT/OT Consultation Date/Type/Reason Admit Date/Time Jun 22, 2019 at 18:34 Initial Consult Date 06/23/19 Type of Consult Cardiology Reason for Consultation chest pain Requesting Provider: SHAYY SERRA MD Date/Time of Note DATE: 06/26/19 TIME: 13:32 Exam/Review of Systems Vital Signs Vitals Vital Signs Date Temp Pulse Resp B/P (MAP) Pulse Ox O2 O2 Flow FiO2 Time Delivery Rate 06/26/19 97.8 67 18 120/78 97 Room Air 07:00 (92) Intake and Output 06/25/19 06/25/19 06/26/19 1515:00 23:00 07:00 IntakeIntake Total 600 ml 960 ml BalanceBalance 600 ml 960 ml Exam Exam Review of Systems: CONSTITUTIONAL: No fevers, chills. PULMONARY: No sob CARDIOVASCULAR: No chest pain/palpitations GASTROINTESTINAL: No nausea/vomiting. GENITOURINARY: No hematuria/dysuria. MUSCULOSKELETAL: No myagias/arthalgias. PSYCHIATRIC: The patient denies depression. NEUROLOGIC: No weakness Constitutional: alert Psych: no complaints Head: normocephalic ENMT: mucosa pink and moist Neck: supple, jvd Respiratory: diminished breath sounds (at bases/B) Cardiovascular: regular rate and rhythm Gastrointestinal: soft, non-tender Musculoskeletal: muscle weakness (LUE/LLE) Extremities: edema (none) Neurological: focal weakness Labs Result Diagram: 06/23/19 0555 06/23/19 0555 Results 24hrs Laboratory Tests Test 06/25/19 17:19 06/25/19 20:34 06/26/19 07:52 06/26/19 11:41 Bedside Glucose 101 96 94 86 Medications Medications Current Medications Docusate Sodium (Colace) 100 mg BID PO Last administered on 06/25/19at 20:36; Admin Dose 100 MG; Start 06/22/19 at 21:00 Senna (Senokot) 1 tab HS PO Last administered on 06/25/19at 20:36; Admin Dose 1 TAB; Start 06/22/19 at 21:00 Magnesium Hydroxide (Milk Of Mag) 30 ml BID PRN PO CONSTIPATION; Start 06/22/19 at 19:00 Lactulose (Enulose) 20 gm DAILY PRN PO CONSTIPATION; Start 06/22/19 at 19:00 Bisacodyl (Dulcolax Supp) 10 mg DAILY PRN [place] CONSTIPATION; Start 06/22/19 at 19:00 Miscellaneous Information (Pending [facility] Order For Wound Care) This patient lott... PRN PRN XX WOUND CARE; Start 06/22/19 at 19:00 Acetaminophen (Tylenol Tab) 650 mg Q4H PRN PO MILD PAIN(1-3)OR ELEVATED TEMP Last administered on 06/26/19at 06:18; Admin Dose 650 MG; Start 06/22/19 at 20:00 Atorvastatin Calcium (Lipitor) 80 mg HS PO Last administered on 06/25/19at 20:36; Admin Dose 80 MG; Start 06/22/19 at 21:00 Dorzolamide HCl (Trusopt) 1 drop TID BOTH EYES Last administered on 06/26/19at 0 9:38; Admin Dose 1 DROP; Start 06/22/19 at 21:00 Insulin Aspart (Novolog Insulin Pen) NOVOLOG *MILD* ALGORITHM WITH MEALS BEDTIME SC ; Start 06/22/19 at 21:00 Metoprolol Succinate (Toprol Xl) 25 mg DAILY PO Last administered on 06/26/19at 09:39; Admin Dose 25 MG; Start 06/23/19 at 09:00 Ondansetron HCl (Zofran Inj) 4 mg Q4H PRN IV NAUSEA AND/OR VOMITING; Start 06/22/19 at 20:00 Nitroglycerin (Nitroglycerin (Sl Tab) 0.4 Mg) 1 tab Q5M PRN SL ANGINA; Start 06/22/19 at 20:00 Hydralazine HCl (Apresoline) 25 mg Q6 PRN PO ELEVATED BLOOD PRESSURE; Start 06/22/19 at 20:00 Miscellaneous Information 1 ea NOTE XX ; Start 06/22/19 at 20:30 Glucose (Glutose) 15 gm Q15M PRN PO DECREASED GLUCOSE; Start 06/22/19 at 20:30 Glucose (Glutose) 22.5 gm Q15M PRN PO DECREASED GLUCOSE; Start 06/22/19 at 20:30 Dextrose (D50w Syringe) 25 ml Q15M PRN IV DECREASED GLUCOSE; Start 06/22/19 at 20:30 Dextrose (D50w Syringe) 50 ml Q15M PRN IV DECREASED GLUCOSE; Start 06/22/19 at 20:30 Glucagon (Glucagen) 1 mg Q15M PRN IM DECREASED GLUCOSE; Start 06/22/19 at 20:30 Glucose (Glutose) 15 gm Q15M PRN BUCCAL DECREASED GLUCOSE; Start 06/22/19 at 20:30 Aspirin (Halfprin) 81 mg DAILY PO Last administered on 06/26/19at 09:38; Admin Dose 81 MG; Start 06/23/19 at 09:00 Diphenhydramine HCl (Benadryl) 25 mg Q6H PRN PO ITCHING; Start 06/22/19 at 20:00 Levothyroxine Sodium (Synthroid) 50 mcg DAILY@06 PO Last administered on 06/26/19at 06:15; Admin Dose 50 MCG; Start 06/23/19 at 06:00 Metformin HCl (Glucophage) 1,000 mg WITH BREAKFAST DINNE PO Last administered on 06/26/19at 07:47; Admin Dose 1,000 MG; Start 06/23/19 at 07:35 Diagnostic Test (Pha) (Accu-Chek) 1 ea AC MEALS AND BEDTIME XX Last administered on 06/25/19at 20:40; Admin Dose 1 EA; Start 06/22/19 at 21:00 Lidocaine (Lidoderm) 1 patch DAILY TD Last administered on 06/26/19at 09:40; Admin Dose 1 PATCH; Start 06/24/19 at 09:00 Meclizine HCl (Antivert) 12.5 mg TID PRN PO NAUSEA AND/OR VOMITING; Start 06/25/19 at 09:30 HILARIA WINSTON 28, 2019 13:34
[2019-06-26 14:00] VITALS: BP 138/81; PULSE 85; RESP 18
[2019-06-26 20:00] VITALS: BP 126/77; PULSE 85; RESP 18
[2019-06-26] MEDS: SENNA TAB PO SCH (21:19)
[2019-06-26] MEDS: ATORVASTATIN 80 MG TAB PO SCH (21:20)
[2019-06-27 02:00] VITALS: BP 137/71; PULSE 81; RESP 18
[2019-06-27] MEDS: LEVOTHYROXINE 50 MCG TAB PO SCH (06:54)
[2019-06-27] MEDS: ACETAMINOPHEN 325 MG TAB PO PRN (06:56)
[2019-06-27 07:00] VITALS: BP 130/76; PULSE 79; RESP 18
[2019-06-27] MEDS: INSULIN ASPART [NOVOLOG] 3 ML PEN SC SCH ×4 (07:35→21:00)
[2019-06-27] MEDS: ACCU-CHEK XX SCH ×4 (08:09→21:34)
[2019-06-27] MEDS: metFORMIN 500 MG TAB PO SCH ×2 (08:10→18:06)
[2019-06-27] MEDS: METOPROLOL (XL) 25 MG TAB PO SCH (09:18)
[2019-06-27] MEDS: ASPIRIN (EC) 81 MG TAB PO SCH (09:18)
[2019-06-27] MEDS: DORZOLAMIDE 2% 10 ML OPH BOTH EYES SCH ×3 (09:18→21:30)
[2019-06-27] MEDS: DOCUSATE SODIUM 100 MG CAP PO SCH ×2 (09:18→21:29)
[2019-06-27] MEDS: LIDOCAINE 5% PATCH TD SCH (09:19)
--- NOTE | 2019-06-27 12:43 | CONS ---
Assessment/Plan Assessment/Plan Hospital Course (Demo Recall) IMPRESSION: 1. Chest pain, assess for acute coronary syndrome, somewhat vague description described as a cramping sensation with a cath no significant obstructive disease in 2017.-neg trop x 3 2. Hypertension-reasonable control 3. Dyslipidemia. 4. CVA, acute with ongoing left upper extremity and lower extremity weakness.- seen by HEad CT as well, strength improving in RUE/RLE 5. Hypothyroidism. 6. Diabetes mellitus. Recc: -Now transferred to rehab -Continue asa/statin -Contineu toprol xl at current dose with well controlled BP and follow BP closely -PT/OT Consultation Date/Type/Reason Admit Date/Time Jun 22, 2019 at 18:34 Initial Consult Date 06/23/19 Type of Consult Cardiology Reason for Consultation HTN Requesting Provider: SHAYY SERRA MD Date/Time of Note DATE: 06/27/19 TIME: 12:41 Exam/Review of Systems Vital Signs Vitals Vital Signs Date Temp Pulse Resp B/P (MAP) Pulse Ox O2 O2 Flow FiO2 Time Delivery Rate 06/27/19 98.2 79 18 130/76 99 Room Air 07:00 (94) Intake and Output 06/26/19 06/26/19 06/27/19 1515:00 23:00 07:00 IntakeIntake Total 1200 ml OutputOutput Total 800 ml BalanceBalance 400 ml Exam Exam Review of Systems: CONSTITUTIONAL: No fevers, chills. PULMONARY: No sob CARDIOVASCULAR: No chest pain/palpitations GASTROINTESTINAL: No nausea/vomiting. GENITOURINARY: No hematuria/dysuria. MUSCULOSKELETAL: No myagias/arthalgias. PSYCHIATRIC: The patient denies depression. NEUROLOGIC: focal weakness Constitutional: alert Psych: no complaints Head: normocephalic ENMT: mucosa pink and moist Neck: supple, jvd (9 cm water) Respiratory: clear to auscultation Cardiovascular: regular rate and rhythm Gastrointestinal: soft, non-tender Musculoskeletal: muscle weakness (LUE/LLE) Extremities: edema (none) Neurological: focal weakness Labs Result Diagram: 06/23/19 0555 06/23/19 0555 Results 24hrs Laboratory Tests Test 06/26/19 17:09 06/26/19 21:20 06/27/19 08:08 06/27/19 12:01 Bedside Glucose 91 98 89 89 Medications Medications Current Medications Docusate Sodium (Colace) 100 mg BID PO Last administered on 06/27/19 09:18; Admin Dose 100 MG; Start 06/22/19 at 21:00 Senna (Senokot) 1 tab HS PO Last administered on 06/26/19 21:19; Admin Dose 1 TAB; Start 06/22/19 at 21:00 Magnesium Hydroxide (Milk Of Mag) 30 ml BID PRN PO CONSTIPATION; Start 06/22/19 at 19:00 Lactulose (Enulose) 20 gm DAILY PRN PO CONSTIPATION; Start 06/22/19 at 19:00 Bisacodyl (Dulcolax Supp) 10 mg DAILY PRN [place] CONSTIPATION; Start 06/22/19 at 19:00 Miscellaneous Information (Pending [facility] Order For Wound Care) This patient oltt... PRN PRN XX WOUND CARE; Start 06/22/19 at 19:00 Acetaminophen (Tylenol Tab) 650 mg Q4H PRN PO MILD PAIN(1-3)OR ELEVATED TEMP Last administered on 06/27/19at 06:56; Admin Dose 650 MG; Start 06/22/19 at 20:00 Atorvastatin Calcium (Lipitor) 80 mg HS PO Last administered on 06/26/19 21:20; Admin Dose 80 MG; Start 06/22/19 at 21:00 Dorzolamide HCl (Trusopt) 1 drop TID BOTH EYES Last administered on 06/27/19 12:03; Admin Dose 1 DROP; Start 06/22/19 at 21:00 Insulin Aspart (Novolog Insulin Pen) NOVOLOG *MILD* ALGORITHM WITH MEALS BEDTIME SC ; Start 06/22/19 at 21:00 Metoprolol Succinate (Toprol Xl) 25 mg DAILY PO Last administered on 06/27/19 09:18; Admin Dose 25 MG; Start 06/23/19 at 09:00 Ondansetron HCl (Zofran Inj) 4 mg Q4H PRN IV NAUSEA AND/OR VOMITING; Start 06/22/19 at 20:00 Nitroglycerin (Nitroglycerin (Sl Tab) 0.4 Mg) 1 tab Q5M PRN SL ANGINA Last administered on 06/27/19 07:23; Admin Dose 1 TAB; Start 06/22/19 at 20:00 Hydralazine HCl (Apresoline) 25 mg Q6 PRN PO ELEVATED BLOOD PRESSURE; Start 06/22/19 at 20:00 Miscellaneous Information 1 ea NOTE XX ; Start 06/22/19 at 20:30 Glucose (Glutose) 15 gm Q15M PRN PO DECREASED GLUCOSE; Start 06/22/19 at 20:30 Glucose (Glutose) 22.5 gm Q15M PRN PO DECREASED GLUCOSE; Start 06/22/19 at 20:30 Dextrose (D50w Syringe) 25 ml Q15M PRN IV DECREASED GLUCOSE; Start 06/22/19 at 20:30 Dextrose (D50w Syringe) 50 ml Q15M PRN IV DECREASED GLUCOSE; Start 06/22/19 at 20:30 Glucagon (Glucagen) 1 mg Q15M PRN IM DECREASED GLUCOSE; Start 06/22/19 at 20:30 Glucose (Glutose) 15 gm Q15M PRN BUCCAL DECREASED GLUCOSE; Start 06/22/19 at 20:30 Aspirin (Halfprin) 81 mg DAILY PO Last administered on 06/27/19at 09:18; Admin Dose 81 MG; Start 06/23/19 at 09:00 Diphenhydramine HCl (Benadryl) 25 mg Q6H PRN PO ITCHING; Start 06/22/19 at 20:00 Levothyroxine Sodium (Synthroid) 50 mcg DAILY@06 PO Last administered on 06/27/19at 06:54; Admin Dose 50 MCG; Start 06/23/19 at 06:00 Metformin HCl (Glucophage) 1,000 mg WITH BREAKFAST DINNE PO Last administered on 06/27/19at 08:10; Admin Dose 1,000 MG; Start 06/23/19 at 07:35 Diagnostic Test (Pha) (Accu-Chek) 1 ea AC MEALS AND BEDTIME XX Last administered on 06/26/19at 21:20; Admin Dose 1 EA; Start 06/22/19 at 21:00 Lidocaine (Lidoderm) 1 patch DAILY TD Last administered on 06/27/19at 09:19; Admin Dose 1 PATCH; Start 06/24/19 at 09:00 Meclizine HCl (Antivert) 12.5 mg TID PRN PO NAUSEA AND/OR VOMITING; Start 06/25/19 at 09:30 HILARIA WINSTON Jun 27, 2019 12:43
[2019-06-27 14:00] VITALS: BP 128/67; PULSE 82; RESP 18
--- NOTE | 2019-06-27 14:24 | PN ---
Date/Time of Note Date/Time of Note DATE: 06/27/19 TIME: 14:23 Assessment/Plan VTE Prophylaxis Risk score (from Ns)>0 risk: 3 SCD applied (from [facility]): No SCD contraindicated: other Pharmacological prophylaxis: LMWH Lines/Catheters Urinary Cath still in place: No Assessment/Plan Hospital Course -Dizziness,improved, continue meclizine.repeat CT of the brain with no evidence for hemorrhagic transformation of the evolving acute to subacute ischemic right posterior frontal, parietal and occipital lobe infarcts. -Acute stroke with residual left-sided weakness. Continue aspirin and Lipitor. Continue PT OT. Dr. Bailey is following in neurology consultation. -Dizziness continue meclizine as needed. Repeat CT of the brain with no evidence for hemorrhagic transformation of the evolving acute to subacute ischemic right posterior frontal, parietal and occipital lobe infarcts. -Cardiomyopathy. 2D echo with preserved ejection fraction. Dr. Aggarwal is following in cardiology consultation. -Diabetes mellitus type 2 with hemoglobin A1c of 6.5, continue metformin and NovoLog per mild algorithm sliding scale. -Hypertension, continue metoprolol. -Hypothyroidism, continue levothyroxine. -Hyperlipidemia, continue Lipitor. Result Diagram: 06/23/19 0555 06/23/19 0555 Results 24hrs Laboratory Tests Test 06/26/19 17:09 06/26/19 21:20 06/27/19 08:08 06/27/19 12:01 Bedside Glucose 91 98 89 89 Subjective 24 Hr Interval Summary Free Text/Dictation Patient has no complaints Exam/Review of Systems Exam Vitals Vital Signs Date Temp Pulse Resp B/P (MAP) Pulse Ox O2 O2 Flow FiO2 Time Delivery Rate 06/27/19 98.2 79 18 130/76 99 Room Air 07:00 (94) Intake and Output 06/26/19 06/26/19 06/27/19 1515:00 23:00 07:00 IntakeIntake Total 1200 ml OutputOutput Total 800 ml BalanceBalance 400 ml Constitutional: well developed Head: normocephalic, atraumatic Neck: supple Respiratory: clear to auscultation Cardiovascular: regular rate and rhythm Gastrointestinal: soft, non-tender Extremities: normal pulses Results Results 24hrs Laboratory Tests Test 06/26/19 17:09 06/26/19 21:20 06/27/19 08:08 06/27/19 12:01 Bedside Glucose 91 98 89 89 Medications Medication Current Medications Docusate Sodium (Colace) 100 mg BID PO Last administered on 06/27/19 09:18; Admin Dose 100 MG; Start 06/22/19 at 21:00 Senna (Senokot) 1 tab HS PO Last administered on 06/26/19 21:19; Admin Dose 1 TAB; Start 06/22/19 at 21:00 Magnesium Hydroxide (Milk Of Mag) 30 ml BID PRN PO CONSTIPATION; Start 06/22/19 at 19:00 Lactulose (Enulose) 20 gm DAILY PRN PO CONSTIPATION; Start 06/22/19 at 19:00 Bisacodyl (Dulcolax Supp) 10 mg DAILY PRN [place] CONSTIPATION; Start 06/22/19 at 19:00 Miscellaneous Information (Pending [facility] Order For Wound Care) This patient lott... PRN PRN XX WOUND CARE; Start 06/22/19 at 19:00 Acetaminophen (Tylenol Tab) 650 mg Q4H PRN PO MILD PAIN(1-3)OR ELEVATED TEMP Last administered on 06/27/19 06:56; Admin Dose 650 MG; Start 06/22/19 at 20:00 Atorvastatin Calcium (Lipitor) 80 mg HS PO Last administered on 06/26/19 21:20; Admin Dose 80 MG; Start 06/22/19 at 21:00 Dorzolamide HCl (Trusopt) 1 drop TID BOTH EYES Last administered on 06/27/19 12:03; Admin Dose 1 DROP; Start 06/22/19 at 21:00 Insulin Aspart (Novolog Insulin Pen) NOVOLOG *MILD* ALGORITHM WITH MEALS BEDTIME SC ; Start 06/22/19 at 21:00 Metoprolol Succinate (Toprol Xl) 25 mg DAILY PO Last administered on 06/27/19 09:18; Admin Dose 25 MG; Start 06/23/19 at 09:00 Ondansetron HCl (Zofran Inj) 4 mg Q4H PRN IV NAUSEA AND/OR VOMITING; Start 06/22/19 at 20:00 Nitroglycerin (Nitroglycerin (Sl Tab) 0.4 Mg) 1 tab Q5M PRN SL ANGINA Last administered on 06/27/19 07:23; Admin Dose 1 TAB; Start 06/22/19 at 20:00 Hydralazine HCl (Apresoline) 25 mg Q6 PRN PO ELEVATED BLOOD PRESSURE; Start 06/22/19 at 20:00 Miscellaneous Information 1 ea NOTE XX ; Start 06/22/19 at 20:30 Glucose (Glutose) 15 gm Q15M PRN PO DECREASED GLUCOSE; Start 06/22/19 at 20:30 Glucose (Glutose) 22.5 gm Q15M PRN PO DECREASED GLUCOSE; Start 06/22/19 at 20:3 0 Dextrose (D50w Syringe) 25 ml Q15M PRN IV DECREASED GLUCOSE; Start 06/22/19 at 20:30 Dextrose (D50w Syringe) 50 ml Q15M PRN IV DECREASED GLUCOSE; Start 06/22/19 at 20:30 Glucagon (Glucagen) 1 mg Q15M PRN IM DECREASED GLUCOSE; Start 06/22/19 at 20:30 Glucose (Glutose) 15 gm Q15M PRN BUCCAL DECREASED GLUCOSE; Start 06/22/19 at 20:30 Aspirin (Halfprin) 81 mg DAILY PO Last administered on 06/27/19at 09:18; Admin Dose 81 MG; Start 06/23/19 at 09:00 Diphenhydramine HCl (Benadryl) 25 mg Q6H PRN PO ITCHING; Start 06/22/19 at 20:00 Levothyroxine Sodium (Synthroid) 50 mcg DAILY@06 PO Last administered on 06/27/19at 06:54; Admin Dose 50 MCG; Start 06/23/19 at 06:00 Metformin HCl (Glucophage) 1,000 mg WITH BREAKFAST DINNE PO Last administered on 06/27/19 08:10; Admin Dose 1,000 MG; Start 06/23/19 at 07:35 Diagnostic Test (Pha) (Accu-Chek) 1 ea AC MEALS AND BEDTIME XX Last administered on 06/26/19 21:20; Admin Dose 1 EA; Start 06/22/19 at 21:00 Lidocaine (Lidoderm) 1 patch DAILY TD Last administered on 06/27/19 09:19; Admin Dose 1 PATCH; Start 06/24/19 at 09:00 Meclizine HCl (Antivert) 12.5 mg TID PRN PO NAUSEA AND/OR VOMITING; Start 06/25/19 at 09:30 KENYATTA MUÑOZ Jun 27, 2019 14:24
--- NOTE | 2019-06-27 16:59 | PN ---
Date/Time of Note Date/Time of Note DATE: 06/27/19 TIME: 16:56 Subjective Patient up for activities, doing well with therapies Objective Vital Signs Date Temp Pulse Resp B/P (MAP) Pulse Ox O2 O2 Flow FiO2 Time Delivery Rate 06/27/19 98.2 82 18 128/67 93 Room Air 14:00 (87) Intake and Output 06/26/19 06/26/19 06/27/19 1515:00 23:00 07:00 IntakeIntake Total 1200 ml OutputOutput Total 800 ml BalanceBalance 400 ml Exam pulm-cta abd-soft sba ambulation Results/Medications Result Diagram: 06/23/1955 06/23/1955 Results 24 hrs Laboratory Tests Test 06/26/19 17:09 06/26/19 21:20 06/27/19 08:08 06/27/19 12:01 Bedside Glucose 91 98 89 89 Medications Current Medications Docusate Sodium (Colace) 100 mg BID PO Last administered on 06/27/19at 09:18; Admin Dose 100 MG; Start 06/22/19 at 21:00 Senna (Senokot) 1 tab HS PO Last administered on 06/26/19at 21:19; Admin Dose 1 TAB; Start 06/22/19 at 21:00 Magnesium Hydroxide (Milk Of Mag) 30 ml BID PRN PO CONSTIPATION; Start 06/22/19 at 19:00 Lactulose (Enulose) 20 gm DAILY PRN PO CONSTIPATION; Start 06/22/19 at 19:00 Bisacodyl (Dulcolax Supp) 10 mg DAILY PRN [place] CONSTIPATION; Start 06/22/19 at 19:00 [facility] This patient lott... PRN PRN XX WOUND CARE; Start 06/22/19 at 19:00 Acetaminophen (Tylenol Tab) 650 mg Q4H PRN PO MILD PAIN(1-3)OR ELEVATED TEMP Last administered on 06/27/19at 06:56; Admin Dose 650 MG; Start 06/22/19 at 20:00 Atorvastatin Calcium (Lipitor) 80 mg HS PO Last administered on 06/26/19at 21:20; Admin Dose 80 MG; Start 06/22/19 at 21:00 Dorzolamide HCl (Trusopt) 1 drop TID BOTH EYES Last administered on 06/27/19at 12:03; Admin Dose 1 DROP; Start 06/22/19 at 21:00 Insulin Aspart (Novolog Insulin Pen) NOVOLOG *MILD* ALGORITHM WITH MEALS BEDTIME SC ; Start 06/22/19 at 21:00 Metoprolol Succinate (Toprol Xl) 25 mg DAILY PO Last administered on 06/27/19at 09:18; Admin Dose 25 MG; Start 06/23/19 at 09:00 Ondansetron HCl (Zofran Inj) 4 mg Q4H PRN IV NAUSEA AND/OR VOMITING; Start 06/22/19 at 20:00 Nitroglycerin (Nitroglycerin (Sl Tab) 0.4 Mg) 1 tab Q5M PRN SL ANGINA Last administered on 06/27/19at 07:23; Admin Dose 1 TAB; Start 06/22/19 at 20:00 Hydralazine HCl (Apresoline) 25 mg Q6 PRN PO ELEVATED BLOOD PRESSURE; Start 06/22/19 at 20:00 Miscellaneous Information 1 ea NOTE XX ; Start 06/22/19 at 20:30 Glucose (Glutose) 15 gm Q15M PRN PO DECREASED GLUCOSE; Start 06/22/19 at 20:30 Glucose (Glutose) 22.5 gm Q15M PRN PO DECREASED GLUCOSE; Start 06/22/19 at 20:30 Dextrose (D50w Syringe) 25 ml Q15M PRN IV DECREASED GLUCOSE; Start 06/22/19 at 20:30 Dextrose (D50w Syringe) 50 ml Q15M PRN IV DECREASED GLUCOSE; Start 06/22/19 at 20:30 Glucagon (Glucagen) 1 mg Q15M PRN IM DECREASED GLUCOSE; Start 06/22/19 at 20:30 Glucose (Glutose) 15 gm Q15M PRN BUCCAL DECREASED GLUCOSE; Start 06/22/19 at 20:30 Aspirin (Halfprin) 81 mg DAILY PO Last administered on 06/27/19at 09:18; Admin Dose 81 MG; Start 06/23/19 at 09:00 Diphenhydramine HCl (Benadryl) 25 mg Q6H PRN PO ITCHING; Start 06/22/19 at 20:00 Levothyroxine Sodium (Synthroid) 50 mcg DAILY@06 PO Last administered on 06/27/19at 06:54; Admin Dose 50 MCG; Start 06/23/19 at 06:00 Metformin HCl (Glucophage) 1,000 mg WITH BREAKFAST DINNE PO Last administered on 06/27/19at 08:10; Admin Dose 1,000 MG; Start 06/23/19 at 07:35 Diagnostic Test (Pha) (Accu-Chek) 1 ea AC MEALS AND BEDTIME XX Last administered on 06/26/19at 21:20; Admin Dose 1 EA; Start 06/22/19 at 21:00 Lidocaine (Lidoderm) 1 patch DAILY TD Last administered on 06/27/19at 09:19; Admin Dose 1 PATCH; Start 06/24/19 at 09:00 Meclizine HCl (Antivert) 12.5 mg TID PRN PO NAUSEA AND/OR VOMITING; Start 06/25/19 at 09:30 Assessment/Plan Additional Assessment/Plan Rehab- R parietal infact CVA Continue current therapies Diabetes mellitus. Hypothyroidism. Cardiomyopathy. Hyperlipidemia. Dysphagia HTN SHE RUCKER MD Jun 27, 2019 16:59
[2019-06-27 20:00] VITALS: BP 105/60; PULSE 72; RESP 18
[2019-06-27] MEDS: SENNA TAB PO SCH (21:29)
[2019-06-27] MEDS: ATORVASTATIN 80 MG TAB PO SCH (21:29)
[2019-06-28 02:00] VITALS: BP 137/83; PULSE 90; RESP 17
[2019-06-28] MEDS: LEVOTHYROXINE 50 MCG TAB PO SCH (07:00)
[2019-06-28] MEDS: ACCU-CHEK XX SCH ×3 (07:05→17:05)
[2019-06-28 07:30] VITALS: BP 141/84; PULSE 84; RESP 20
[2019-06-28] MEDS: INSULIN ASPART [NOVOLOG] 3 ML PEN SC SCH ×3 (07:35→17:31)
[2019-06-28] MEDS: metFORMIN 500 MG TAB PO SCH ×2 (08:00→17:32)
[2019-06-28] MEDS: LIDOCAINE 5% PATCH TD SCH (09:21)
[2019-06-28] MEDS: DORZOLAMIDE 2% 10 ML OPH BOTH EYES SCH ×2 (09:21→12:00)
[2019-06-28] MEDS: ASPIRIN (EC) 81 MG TAB PO SCH (09:21)
[2019-06-28] MEDS: DOCUSATE SODIUM 100 MG CAP PO SCH (09:22)
[2019-06-28] MEDS: METOPROLOL (XL) 25 MG TAB PO SCH (09:22)
--- NOTE | 2019-06-28 10:41 | CONS ---
Consult Date/Type/Reason Admit Date/Time Jun 22, 2019 at 18:34 Initial Consult Date Requesting Provider: SHAYY SERRA MD Date/Time of Note DATE: 06/28/19 TIME: 10:39 Subjective No acute events - pt better overall - no CP now - will monitor clinically now. ROS: No fever, no chills, no nausea, no vomiting, no diarrhea/constipation No recent weight changes No chest pain, no PND, no orthopnea - mild SOB No dizziness, blurred vision No thirst, no heat or cold intolerance Objective Vitals Vital Signs Date Temp Pulse Resp B/P (MAP) Pulse Ox O2 O2 Flow FiO2 Time Delivery Rate 06/28/19 98.4 90 17 137/83 97 02:00 (101) 06/27/19 Room Air 14:00 Intake and Output 06/27/19 06/27/19 06/28/19 1515:00 23:00 07:00 IntakeIntake Total 1200 ml 710 ml OutputOutput Total 800 ml BalanceBalance 400 ml 710 ml Exam General: WN/WD/NAD, AOx 3 HEENT: Unicetric/atraumatic/EOMI (follows commands) NECK: JVD elevated, no thyromegaly Lymph: no lymphadenopathy HEART: regular with no S3, II/ systolic murmur at apex LUNGS: Coarse sounds ABD: soft, NT, ND, +BS : Intact Neuro: non focal SKIN: chronic changes EXT: trace edema Results/Medications Results 24 hrs Laboratory Tests Test 06/27/19 12:01 06/27/19 17:47 06/27/19 21:31 06/28/19 07:56 Bedside Glucose 89 88 86 88 Home Meds Reported Medications Dorzolamide Hcl* (Dorzolamide Hcl*) 10 Ml Drops, 1 DROP BOTH EYES TID, #1 EA 06/15/19 Lisinopril* (Lisinopril*) 10 Mg Tablet, 10 MG PO DAILY, #30 TAB 06/15/19 Metformin Hcl* (Metformin Hcl*) 1,000 Mg Tablet, 1000 MG PO WITH BREAKFAST DINNE, #60 TAB 06/15/19 Levothyroxine Sodium* (Levothyroxine Sodium*) 50 Mcg Tablet, 50 MCG PO BEFORE BREAKFAST, #30 TAB 06/15/19 Hydrocodone/Acetaminophen ([place] 5-325 Tablet) 1 Each Tablet, 1 EACH PO Q8H, TAB 06/15/19 Gabapentin* (Gabapentin*) 100 Mg Capsule, 100 MG PO BID, #90 CAP 06/15/19 Metoprolol Succinate* (Toprol XL*) 25 Mg Tab.sr.24h, 25 MG PO DAILY, #30 TAB 06/15/19 Medications Current Medications Docusate Sodium (Colace) 100 mg BID PO Last administered on 06/28/19at 09:22; Admin Dose 100 MG; Start 06/22/19 at 21:00 Senna (Senokot) 1 tab HS PO Last administered on 06/27/19at 21:29; Admin Dose 1 TAB; Start 06/22/19 at 21:00 Magnesium Hydroxide (Milk Of Mag) 30 ml BID PRN PO CONSTIPATION; Start 06/22/19 at 19:00 Lactulose (Enulose) 20 gm DAILY PRN PO CONSTIPATION; Start 06/22/19 at 19:00 Bisacodyl (Dulcolax Supp) 10 mg DAILY PRN [place] CONSTIPATION; Start 06/22/19 at 1 9:00 Miscellaneous Information [facility] This patient lott... PRN PRN XX WOUND CARE; Start 06/22/19 at 19:00 Acetaminophen (Tylenol Tab) 650 mg Q4H PRN PO MILD PAIN(1-3)OR ELEVATED TEMP Last administered on 06/27/19at 06:56; Admin Dose 650 MG; Start 06/22/19 at 20:00 Atorvastatin Calcium (Lipitor) 80 mg HS PO Last administered on 06/27/19at 21:29; Admin Dose 80 MG; Start 06/22/19 at 21:00 Dorzolamide HCl (Trusopt) 1 drop TID BOTH EYES Last administered on 06/28/19at 09:21; Admin Dose 1 DROP; Start 06/22/19 at 21:00 Insulin Aspart (Novolog Insulin Pen) NOVOLOG *MILD* ALGORITHM WITH MEALS BEDTIME SC ; Start 06/22/19 at 21:00 Metoprolol Succinate (Toprol Xl) 25 mg DAILY PO Last administered on 06/28/19at 09:22; Admin Dose 25 MG; Start 06/23/19 at 09:00 Ondansetron HCl (Zofran Inj) 4 mg Q4H PRN IV NAUSEA AND/OR VOMITING; Start 06/22/19 at 20:00 Nitroglycerin (Nitroglycerin (Sl Tab) 0.4 Mg) 1 tab Q5M PRN SL ANGINA Last administered on 06/27/19at 07:23; Admin Dose 1 TAB; Start 06/22/19 at 20:00 Hydralazine HCl (Apresoline) 25 mg Q6 PRN PO ELEVATED BLOOD PRESSURE; Start 06/22/19 at 20:00 Miscellaneous Information 1 ea NOTE XX ; Start 06/22/19 at 20:30 Glucose (Glutose) 15 gm Q15M PRN PO DECREASED GLUCOSE; Start 06/22/19 at 20:30 Glucose (Glutose) 22.5 gm Q15M PRN PO DECREASED GLUCOSE; Start 06/22/19 at 20:30 Dextrose (D50w Syringe) 25 ml Q15M PRN IV DECREASED GLUCOSE; Start 06/22/19 at 20:30 Dextrose (D50w Syringe) 50 ml Q15M PRN IV DECREASED GLUCOSE; Start 06/22/19 at 20:30 Glucagon (Glucagen) 1 mg Q15M PRN IM DECREASED GLUCOSE; Start 06/22/19 at 20:30 Glucose (Glutose) 15 gm Q15M PRN BUCCAL DECREASED GLUCOSE; Start 06/22/19 at 20:30 Aspirin (Halfprin) 81 mg DAILY PO Last administered on 06/28/19at 09:21; Admin Dose 81 MG; Start 06/23/19 at 09:00 Diphenhydramine HCl (Benadryl) 25 mg Q6H PRN PO ITCHING; Start 06/22/19 at 20:00 Levothyroxine Sodium (Synthroid) 50 mcg DAILY@06 PO Last administered on 06/28/19at 07:00; Admin Dose 50 MCG; Start 06/23/19 at 06:00 Metformin HCl (Glucophage) 1,000 mg WITH BREAKFAST DINNE PO Last administered on 06/28/19 08:00; Admin Dose 1,000 MG; Start 06/23/19 at 07:35 Diagnostic Test (Pha) (Accu-Chek) 1 ea AC MEALS AND BEDTIME XX Last administered on 06/27/19at 21:34; Admin Dose 1 EA; Start 06/22/19 at 21:00 Lidocaine (Lidoderm) 1 patch DAILY TD Last administered on 7/30/19at 09:21; Admin Dose 1 PATCH; Start 06/24/19 at 09:00 Meclizine HCl (Antivert) 12.5 mg TID PRN PO NAUSEA AND/OR VOMITING; Start 06/25/19 at 09:30 Assessment/Plan Hospital Course (Demo Recall) 1. Chest pain, assess for acute coronary syndrome, somewhat vague description described as a cramping sensation with a cath no significant obstructive disease in 2017.-neg trop x 3 - no active CP now - no intervention palnned. 2. Hypertension-reasonable control - better now. 3. Dyslipidemia- on satin. 4. CVA, acute with ongoing left upper extremity and lower extremity weakness.- seen by HEad CT as well, strength improving in RUE/RLE - improved with rehab. 5. Hypothyroidism.\- treated. 6. Diabetes mellitus - on meds, con't diabetic care. GILBERTO VALLES MD Jun 28, 2019 10:41
[2019-06-28] MEDS: ACETAMINOPHEN 325 MG TAB PO PRN ×2 (12:00→17:32)
[2019-06-28 14:00] VITALS: BP 120/74; PULSE 76; RESP 18
--- NOTE | 2019-06-28 15:08 | PN ---
Date/Time of Note Date/Time of Note DATE: 06/28/19 TIME: 15:08 Assessment/Plan VTE Prophylaxis Risk score (from Ns)>0 risk: 3 SCD applied (from [facility] [place]): No SCD contraindicated: other Pharmacological prophylaxis: LMWH Lines/Catheters Urinary Cath still in place: No Assessment/Plan Hospital Course -Dizziness,improved, continue meclizine.repeat CT of the brain with no evidence for hemorrhagic transformation of the evolving acute to subacute ischemic right posterior frontal, parietal and occipital lobe infarcts. -Acute stroke with residual left-sided weakness. Continue aspirin and Lipitor. Continue PT OT. Dr. Bailey is following in neurology consultation. -Dizziness continue meclizine as needed. Repeat CT of the brain with no evidence for hemorrhagic transformation of the evolving acute to subacute i schemic right posterior frontal, parietal and occipital lobe infarcts. -Cardiomyopathy. 2D echo with preserved ejection fraction. Dr. Aggarwal is following in cardiology consultation. -Diabetes mellitus type 2 with hemoglobin A1c of 6.5, continue metformin and NovoLog per mild algorithm sliding scale. -Hypertension, continue metoprolol. -Hypothyroidism, continue levothyroxine. -Hyperlipidemia, continue Lipitor. Results 24hrs Laboratory Tests Test 06/27/19 17:47 06/27/19 21:31 06/28/19 07:56 06/28/19 11:57 Bedside Glucose 88 86 88 75 Subjective 24 Hr Interval Summary Free Text/Dictation Patient cooperating with physical therapy Exam/Review of Systems Exam Vitals Vital Signs Date Temp Pulse Resp B/P (MAP) Pulse Ox O2 O2 Flow FiO2 Time Delivery Rate 06/28/19 98.6 84 20 141/84 94 Room Air 07:30 (103) Intake and Output 06/27/19 06/27/19 06/28/19 1515:00 23:00 07:00 IntakeIntake Total 1200 ml 710 ml OutputOutput Total 800 ml BalanceBalance 400 ml 710 ml Constitutional: well developed Head: normocephalic, atraumatic Neck: supple Respiratory: clear to auscultation Cardiovascular: regular rate and rhythm Gastrointestinal: soft, non-tender Extremities: normal pulses Results Results 24hrs Laboratory Tests Test 06/27/19 17:47 06/27/19 21:31 06/28/19 07:56 06/28/19 11:57 Bedside Glucose 88 86 88 75 Medications Medication Current Medications Docusate Sodium (Colace) 100 mg BID PO Last administered on 06/28/19 09:22; Admin Dose 100 MG; Start 06/22/19 at 21:00 Senna (Senokot) 1 tab HS PO Last administered on 06/27/19 21:29; Admin Dose 1 TAB; Start 06/22/19 at 21:00 Magnesium Hydroxide (Milk Of Mag) 30 ml BID PRN PO CONSTIPATION; Start 06/22/19 at 19:00 Lactulose (Enulose) 20 gm DAILY PRN PO CONSTIPATION; Start 06/22/19 at 19:00 Bisacodyl (Dulcolax Supp) 10 mg DAILY PRN [place] CONSTIPATION; Start 06/22/19 at 19:00 Miscellaneous Information (Pending [facility] Order For Wound Care) This patient lott... PRN PRN XX WOUND CARE; Start 06/22/19 at 19:00 Acetaminophen (Tylenol Tab) 650 mg Q4H PRN PO MILD PAIN(1-3)OR ELEVATED TEMP Last administered on 06/28/19 12:00; Admin Dose 650 MG; Start 06/22/19 at 20:00 Atorvastatin Calcium (Lipitor) 80 mg HS PO Last administered on 06/27/19 21:29; Admin Dose 80 MG; Start 06/22/19 at 21:00 Dorzolamide HCl (Trusopt) 1 drop TID BOTH EYES Last administered on 06/28/19 12:00; Admin Dose 1 DROP; Start 06/22/19 at 21:00 Insulin Aspart (Novolog Insulin Pen) NOVOLOG *MILD* ALGORITHM WITH MEALS BEDTIME SC ; Start 06/22/19 at 21:00 Metoprolol Succinate (Toprol Xl) 25 mg DAILY PO Last administered on 06/28/19 09:22; Admin Dose 25 MG; Start 06/23/19 at 09:00 Ondansetron HCl (Zofran Inj) 4 mg Q4H PRN IV NAUSEA AND/OR VOMITING; Start 06/22/19 at 20:00 Nitroglycerin (Nitroglycerin (Sl Tab) 0.4 Mg) 1 tab Q5M PRN SL ANGINA Last administered on 06/27/19 07:23; Admin Dose 1 TAB; Start 06/22/19 at 20:00 Hydralazine HCl (Apresoline) 25 mg Q6 PRN PO ELEVATED BLOOD PRESSURE; Start 06/22/19 at 20:00 Miscellaneous Information 1 ea NOTE XX ; Start 06/22/19 at 20:30 Glucose (Glutose) 15 gm Q15M PRN PO DECREASED GLUCOSE; Start 06/22/19 at 20:30 Glucose (Glutose) 22.5 gm Q15M PRN PO DECREASED GLUCOSE; Start 06/22/19 at 20:30 Dextrose (D50w Syringe) 25 ml Q15M PRN IV DECREASED GLUCOSE; Start 06/22/19 at 20:30 Dextrose (D50w Syringe) 50 ml Q15M PRN IV DECREASED GLUCOSE; Start 06/22/19 at 20:30 Glucagon (Glucagen) 1 mg Q15M PRN IM DECREASED GLUCOSE; Start 06/22/19 at 20:30 Glucose (Glutose) 15 gm Q15M PRN BUCCAL DECREASED GLUCOSE; Start 06/22/19 at 20:30 Aspirin (Halfprin) 81 mg DAILY PO Last administered on 06/28/19 09:21; Admin Dose 81 MG; Start 06/23/19 at 09:00 Diphenhydramine HCl (Benadryl) 25 mg Q6H PRN PO ITCHING; Start 06/22/19 at 20:00 Levothyroxine Sodium (Synthroid) 50 mcg DAILY@06 PO Last administered on 06/28/19at 07:00; Admin Dose 50 MCG; Start 06/23/19 at 06:00 Metformin HCl (Glucophage) 1,000 mg WITH BREAKFAST DINNE PO Last administered on 06/28/19 08:00; Admin Dose 1,000 MG; Start 06/23/19 at 07:35 Diagnostic Test (Pha) (Accu-Chek) 1 ea AC MEALS AND BEDTIME XX Last administered on 06/27/19 21:34; Admin Dose 1 EA; Start 06/22/19 at 21:00 Lidocaine (Lidoderm) 1 patch DAILY TD Last administered on 06/28/19 09:21; Admin Dose 1 PATCH; Start 06/24/19 at 09:00 Meclizine HCl (Antivert) 12.5 mg TID PRN PO NAUSEA AND/OR VOMITING; Start 06/25/19 at 09:30 KENYATTA MUÑOZ Jun 28, 2019 15:08
--- NOTE | 2019-06-28 16:28 | DS ---
Date/Time of Note Date/Time of Note DATE: 06/28/19 TIME: 16:26 Discharge Summary Admission/Discharge Info Admit Date/Time Jun 22, 2019 at 18:34 Discharge Date/Time Discharge Diagnosis 1. Right parietal infarct cerebrovascular accident with left-sided weakness. 2. Diabetes mellitus. 3. Hypothyroidism. 4. Cardiomyopathy. 5. Hyperlipidemia. 6. Dysphagia- improved 7. Hypertension 8. Improvements in self-care and mobility Patient Condition: Good Hospital Course The patient was admitted for comprehensive interdisciplinary rehabilitation and made steady functional gains from a Mod level to a Modified Independent level for self care tasks and mobility including ambulating over 200 feet with the use of a FWW. Family trained in assistance.Patient is being discharged home with the recommendation of home health PT, OT and RN follow up. The DC meds are per the medication reconciliation sheet. The discharge equipment recommendations include: FWW, BSC, shower chair. The patient will follow up with PMD upon DC. Home Meds Reported Medications Dorzolamide Hcl* (Dorzolamide Hcl*) 10 Ml Drops, 1 DROP BOTH EYES TID, #1 EA 06/15/19 Lisinopril* (Lisinopril*) 10 Mg Tablet, 10 MG PO DAILY, #30 TAB 06/15/19 Metformin Hcl* (Metformin Hcl*) 1,000 Mg Tablet, 1000 MG PO WITH BREAKFAST DINNE, #60 TAB 06/15/19 Levothyroxine Sodium* (Levothyroxine Sodium*) 50 Mcg Tablet, 50 MCG PO BEFORE BREAKFAST, #30 TAB 06/15/19 Hydrocodone/Acetaminophen ([place] 5-325 Tablet) 1 Each Tablet, 1 EACH PO Q8H, TAB 06/15/19 Gabapentin* (Gabapentin*) 100 Mg Capsule, 100 MG PO BID, #90 CAP 06/15/19 Metoprolol Succinate* (Toprol XL*) 25 Mg Tab.sr.24h, 25 MG PO DAILY, #30 TAB 06/15/19 Primary Care Provider Yun Brooks DO Pending Labs Laboratory Tests Test 06/27/19 17:47 06/27/19 21:31 06/28/19 07:56 06/28/19 11:57 Bedside 88 86 88 75 Glucose mg/dL (70-220) mg/dL (70-220) mg/dL (70-220) mg/dL (70-220) SHE RUCKER MD Jun 28, 2019 16:28
== END 2019-06-28 18:32 | disposition home health service (06) | DRG 57 ==
LOC: VRC 18:34
PROVIDERS: ADMIT Physical Medicine & Rehabilitation; ATTEND Internal Medicine
PROC: F07Z9FZ Gait Training/Functional Ambulation Treatment using Assistive, Adaptive, Supportive or Protective Equipment (ICD-10-PCS; principal; 2019-06-22)
PROC: F07Z8FZ Transfer Training Treatment using Assistive, Adaptive, Supportive or Protective Equipment (ICD-10-PCS; 2019-06-22)
PROC: F07Z5FZ Bed Mobility Treatment using Assistive, Adaptive, Supportive or Protective Equipment (ICD-10-PCS; 2019-06-22)
PROC: F08Z2FZ Grooming/Personal Hygiene Treatment using Assistive, Adaptive, Supportive or Protective Equipment (ICD-10-PCS; 2019-06-22)
PROC: F08Z0FZ Bathing/Showering Techniques Treatment using Assistive, Adaptive, Supportive or Protective Equipment (ICD-10-PCS; 2019-06-22)
PROC: F08Z1FZ Dressing Techniques Treatment using Assistive, Adaptive, Supportive or Protective Equipment (ICD-10-PCS; 2019-06-22)
DX: I69.354 Hemiplegia and hemiparesis following cerebral infarction affecting left non-dominant side (principal); I42.9 Cardiomyopathy, unspecified; R47.01 Aphasia; I10 Essential (primary) hypertension; E03.9 Hypothyroidism, unspecified; E78.5 Hyperlipidemia, unspecified; I25.10 Atherosclerotic heart disease of native coronary artery without angina pectoris; E11.40 Type 2 diabetes mellitus with diabetic neuropathy, unspecified; R42 Dizziness and giddiness; R13.10 Dysphagia, unspecified; R07.9 Chest pain, unspecified; R13.12 Dysphagia, oropharyngeal phase; R48.9 Unspecified symbolic dysfunctions
CPT/HCPCS: 80053; 81003; 82962; 85025; 87081; 87086; 92507; 92523; 92526; 92610; 97110; 97112; 97116; 97163; 97166; 97530; 97535; J1815